=== PATIENT | female | born 1960 | race Caucasian/White ===

== ENCOUNTER 2018-10-04 16:30 | Inpatient (IN) | payer MEDICAID | END 2018-10-07 19:15 | disposition home or self-care (01) | LOC: TELE-EAST 10-06 21:20 → ER 16:30 → TELE 22:06 → TELE-EAST 22:49 | DX: I47.1 Supraventricular tachycardia (principal); N17.0 Acute kidney failure with tubular necrosis; R00.2 Palpitations; E87.6 Hypokalemia; K02.9 Dental caries, unspecified; I10 Essential (primary) hypertension; F10.10 Alcohol abuse, uncomplicated ==

== ENCOUNTER 2018-11-30 20:55 | Emergency (ER) | payer MEDICAID ==
[~2018-11-30] VITALS: Ht 167.6 cm; Wt 63.5 kg
[~2018-11-30 20:55] MED LIST: AML5T PO; ASPI81CH59 PO; ATOR10TA PO; CLIN300C8 PO; METO25TA36 PO; NIC21P TOP
[2018-11-30 22:16] LABS: Basophils # (auto) 0.1 uL; Basophils % (auto) 0.9 % (0.0-2.0); Eosinophils # (auto) 0.3 uL; Eosinophils % (auto) 2.6 % (0.0-7.0); Hematocrit 41.5 % (36.0-46.0); Hemoglobin 14.5 g/dL (12.2-16.2); Lymphocytes # (auto) 2.7 uL; Lymphocytes % (auto) 26.7 % (10.0-50.0); Mean Corpuscular Hemoglobin 33.1 pg (28.0-32.0); Mean Corpuscular Hgb Conc. 34.9 g/dL (32.0-36.0); Mean Corpuscular Volume 94.8 fL (80.0-100.0); Monocytes # (auto) 0.6 uL; Monocytes % (auto) 6.2 % (0.0-12.0); Neutrophils # (auto) 6.4 uL; Neutrophils % (auto) 63.6 % (37.0-80.0); Nucleated Red Blood Cells % 0.1 %; Platelet Count (auto) 224 10^3/uL (140-450); Red Blood Cells 4.38 10^6/uL (4.0-5.20); Red Cell Distribution Width 13.1 % (11.8-14.3)
[2018-11-30 22:34] LABS: Albumin 3.7 g/dL (3.4-5.0); Calcium 8.9 mg/dL (8.5-10.1); Potassium 3.8 mmol/L (3.5-5.1)
[2018-11-30 22:36] LABS: INR < 0.93 (0.9-1.15); Partial Thromboplastin Time 28.1 sec (23.64-32.05)
[2018-11-30 22:39] LABS: BUN/Creatinine Ratio 21.6; Bilirubin, Total 0.2 mg/dL (0.2-1.0); Total Protein 7.1 g/dL (6.4-8.2)
[2018-12-01 05:00] VITALS: BP 129/60
== END 2018-12-01 06:19 | disposition home or self-care (01) ==
LOC: EDBD 20:55 → ER 21:02
DX: I10 Essential (primary) hypertension (principal); I25.10 Atherosclerotic heart disease of native coronary artery without angina pectoris; R07.89 Other chest pain; Z88.6 Allergy status to analgesic agent; Z79.82 Long term (current) use of aspirin; Z79.899 Other long term (current) drug therapy
CPT/HCPCS: 36415; 80053; 83880; 84484; 85025; 85610; 85730; 93005; 94761

== ENCOUNTER 2019-10-20 18:35 | Inpatient (IN) | payer MEDICAID ==
[~2019-10-20] VITALS: Ht 165.1 cm; Wt 63.0 kg
[2019-10-20 19:37] LABS: Basophils # (auto) 0.1 10 ^3/uL (0-0.2); Basophils % (auto) 0.6 % (0.0-2.0); Eosinophils # (auto) 0.1 10 ^3/uL (0-0.8); Hematocrit 52.1 % (36.0-46.0); Hemoglobin 17.4 g/dL (12.2-16.2); Lymphocytes # (auto) 2.8 10 ^3/uL (0.4-5.4); Lymphocytes % (auto) 20.3 % (10.0-50.0); Mean Corpuscular Hemoglobin 31.2 pg (28.0-32.0); Mean Corpuscular Hgb Conc. 33.4 g/dL (32.0-36.0); Mean Corpuscular Volume 93.3 fL (80.0-100.0); Monocytes # (auto) 0.9 10 ^3/uL (0-1.3); Monocytes % (auto) 6.8 % (0.0-12.0); Neutrophils % (auto) 71.3 % (37.0-80.0); Platelet Count (auto) 333 10^3/uL (140-450); Red Blood Cells 5.58 10^6/uL (4.0-5.20); Red Cell Distribution Width 13.6 % (11.8-14.3)
[2019-10-20 19:51] LABS: INR 0.98 (0.9-1.15); Partial Thromboplastin Time 28.5 sec (23.64-32.05)
[2019-10-20 20:00] LABS: Alanine Aminotransferase 35 U/L (13-56); Albumin 4.3 g/dL (3.4-5.0); Anion Gap 6 (5-15); Aspartate Aminotransferase 24 U/L (15-37); Blood Urea Nitrogen 25 mg/dL (7-18); Calcium 9.1 mg/dL (8.5-10.1); Carbon Dioxide 22 mmol/L (21-32); Chloride 115 mmol/L (98-107); GFR African American 70 mL/min; GFR Non-African American 58 mL/min; Glucose 125 mg/dL (74-106); Magnesium 2.1 mg/dL (1.6-2.6); Potassium 3.2 mmol/L (3.5-5.1); Sodium 143 mmol/L (136-145)
[2019-10-20 20:05] LABS: Alkaline Phosphatase 100 U/L (45-117); Bilirubin, Total 0.3 mg/dL (0.2-1.0); Total Protein 8.8 g/dL (6.4-8.2)
[2019-10-21] MEDS ORDERED: SODIUM CHLORIDE 0.9% 1,000 ML IV SCH (00:34)
[2019-10-21] MEDS ORDERED: ZOLPIDEM TARTRATE 5 MG TAB PO PRN (00:45)
[2019-10-21] MEDS ORDERED: LORazepam 0.5 MG TAB PO PRN (00:45)
[2019-10-21] MEDS ORDERED: MORPHINE SULF INJ 2 MG/ML SYRINGE 1ML IV PRN (00:45)
[2019-10-21] MEDS ORDERED: ONDANSETRON HCL 4 MG/2 ML VIAL IV PRN (00:45)
[2019-10-21] MEDS ORDERED: ACETAMINOPHEN 325 MG TAB PO PRN (00:45)
[2019-10-21] MEDS ORDERED: NITROGLYCERIN 0.4 MG SL TAB SL PRN (00:45)
[2019-10-21] MEDS ORDERED: DEXTROSE (50%) 50ML SYRG IV PRN (00:45)
[2019-10-21] MEDS ORDERED: METOPROLOL TARTRATE 1MG/1ML-5ML VIAL IV PRN (00:45)
[2019-10-21 01:56] VITALS: BP 156/94
--- NOTE | 2019-10-21 01:56 | NUR ---
Telemetry admit from ER SEGUNDO AGOSTO admitted to Telemetry unit. Patient oriented to PAUL MORALES, primary RN, unit, room, bed, and unit policies regarding patient care and visiting hours. Patient now on continuous telemetry monitoring, tele box 42 and telemetry reading on arrival to unit is sinus rhythm. Patient weighed by bedscale and encouraged to call if they need something. All questions and concerns addressed, patient verbalized understanding.
[2019-10-21 05:00] VITALS: BP 147/75
[2019-10-21 05:34] LABS: Basophils # (auto) 0 10 ^3/uL (0-0.2); Basophils % (auto) 0.3 % (0.0-2.0); Eosinophils # (auto) 0 10 ^3/uL (0-0.8); Eosinophils % (auto) 0.4 % (0.0-7.0); Hematocrit 47.2 % (36.0-46.0); Hemoglobin 16.3 g/dL (12.2-16.2); Lymphocytes # (auto) 1.6 10 ^3/uL (0.4-5.4); Lymphocytes % (auto) 12.9 % (10.0-50.0); Mean Corpuscular Hemoglobin 31.9 pg (28.0-32.0); Mean Corpuscular Hgb Conc. 34.5 g/dL (32.0-36.0); Mean Corpuscular Volume 92.3 fL (80.0-100.0); Monocytes # (auto) 0.7 10 ^3/uL (0-1.3); Monocytes % (auto) 5.9 % (0.0-12.0); Neutrophils % (auto) 80.5 % (37.0-80.0); Platelet Count (auto) 311 10^3/uL (140-450); Red Blood Cells 5.12 10^6/uL (4.0-5.20); Red Cell Distribution Width 13.5 % (11.8-14.3); White Blood Cell 12.5 10^3/uL (4.4-10.8)
[2019-10-21] MEDS: InsuLIN REG 1unit/0.01ml Soln (100units/ml) SC SCH ×2 (05:50→11:24)
[2019-10-21] MEDS: ACCU-CHEK COMFORT CURVE STRIP VI SCH ×2 (05:50→11:24)
[2019-10-21 06:11] LABS: Calcium 9.3 mg/dL (8.5-10.1); Magnesium 2.2 mg/dL (1.6-2.6); Potassium 3.4 mmol/L (3.5-5.1)
[2019-10-21 06:16] LABS: BUN/Creatinine Ratio 26.7
--- NOTE | 2019-10-21 07:45 | NUR ---
Opening Shift Note Assumed care of patient, awake, alert, and oriented. No S/S of distress/SOB or pain. Bed in lowest/locked position, bed rails upx2, call light within reach. Instructed on POC and to call for assist PRN. Will continue to monitor for changes Q1hr and PRN.
[2019-10-21 09:00] VITALS: BP_SYST 123; BP_SYST 138; BP_DIAS 76; BP_DIAS 82
[2019-10-21] MEDS ORDERED: LISINOPRIL 5 MG TAB PO SCH (10:00)
[2019-10-21] MEDS ORDERED: CARVEDILOL 3.125 MG TAB PO SCH (10:00)
[2019-10-21] MEDS ORDERED: PANTOPRAZOLE 40 MG/10 ML VIAL INJ IV SCH (10:00)
[2019-10-21] MEDS ORDERED: cefTRIAXone 1GM/50ML D5W 50 ML IV SCH (10:00)
[2019-10-21] MEDS ORDERED: CLOPIDOGREL BISULFATE 75 MG TAB PO SCH (10:00)
[2019-10-21] MEDS ORDERED: DOCUSATE SOD 100 MG CAP PO SCH (10:00)
[2019-10-21] MEDS ORDERED: ASPirin 81 mg TAB PO SCH (10:00)
[2019-10-21] MEDS ORDERED: SODIUM CHLORIDE 0.9% 1,000 ML IV ONE (10:45)
[2019-10-21] MEDS ORDERED: POTASSIUM EFFERVESENT TAB 25 MEQ PO ONE (10:45)
[2019-10-21] MEDS ORDERED: RANO500T PO (11:32)
[2019-10-21] MEDS ORDERED: CLOP75TA28 PO (11:32)
[2019-10-21 13:00] VITALS: BP 134/81
--- NOTE | 2019-10-21 15:50 | NUR ---
Discharge instructions given as ordered. Encourage to follow up with PMD as instructed. All questions and concerns addressed. Patient verbalized understanding. Home medications held in Pharmacy returned to patient, and needed vaccines given. IV removed with catheter intact, pressure dressing applied. Telemetry unit returned to ICU. Patient taken to vehicle via wheelchair with all personal belongings, accompanied by staff. No distress noted at time of departure.
[2019-10-21] MEDS ORDERED: RANOLAZINE ER 500 MG TAB PO SCH (22:00)
[2019-10-21] MEDS ORDERED: ATORVASTATIN 20 MG TAB PO SCH (22:00)
--- NOTE | 2019-10-23 10:30 | NUR ---
BIOLOGY INTERN WEEKEND Did not received a page or call regarding social service consult for home health safety evaluation. Placed call to patient at 10:27am this morning regarding orders for home health. Patient refused service stating she has a doctor appointment with Dr. Kemp on 10/31/2019. Patient verbalize understanding.
--- NOTE | 2019-10-23 10:38 | NUR ---
SHRIMP PEELER WEEKEND Did not received a page or call regarding social service consult for advance directive
== END 2019-10-21 15:22 | disposition home health service (06) | DRG 198 ==
LOC: ER 18:35 → EDBD 18:35 → TELE 18:36 → TELE-CENTR 10-21 01:57
PROVIDERS: ADMIT Hospitalist; ATTEND Hospitalist
DX: R07.9 Chest pain, unspecified (principal); I25.10 Atherosclerotic heart disease of native coronary artery without angina pectoris; D72.829 Elevated white blood cell count, unspecified; E86.0 Dehydration; N28.9 Disorder of kidney and ureter, unspecified; I10 Essential (primary) hypertension; R73.9 Hyperglycemia, unspecified; E87.6 Hypokalemia; Z82.0 Family history of epilepsy and other diseases of the nervous system; Z87.891 Personal history of nicotine dependence; Z88.6 Allergy status to analgesic agent; Z82.49 Family history of ischemic heart disease and other diseases of the circulatory system; Z83.3 Family history of diabetes mellitus; Z79.899 Other long term (current) drug therapy
CPT/HCPCS: 36415; 71045; 80048; 80053; 80061; 82962; 83735; 83880; 84443; 84484; 85025; 85610; 85730; 93005; C9113; G0378; J0696

== ENCOUNTER 2019-12-27 09:54 | Day surgery (SDC) | payer MEDICAID ==
[2019-12-21 10:19] LABS: Basophils # (auto) 0.1 10 ^3/uL (0-0.2); Basophils % (auto) 0.5 % (0.0-2.0); Eosinophils # (auto) 0.2 10 ^3/uL (0-0.8); Hematocrit 40.7 % (36.0-46.0); Hemoglobin 13.9 g/dL (12.2-16.2); Lymphocytes # (auto) 1.5 10 ^3/uL (0.4-5.4); Lymphocytes % (auto) 15.5 % (10.0-50.0); Mean Corpuscular Hemoglobin 31.6 pg (28.0-32.0); Mean Corpuscular Hgb Conc. 34.2 g/dL (32.0-36.0); Mean Corpuscular Volume 92.2 fL (80.0-100.0); Monocytes # (auto) 0.6 10 ^3/uL (0-1.3); Monocytes % (auto) 6.3 % (0.0-12.0); Neutrophils # (auto) 7.5 10 ^3/uL (1.6-8.6); Neutrophils % (auto) 75.7 % (37.0-80.0); Platelet Count (auto) 274 10^3/uL (140-450); Red Blood Cells 4.42 10^6/uL (4.0-5.20); Red Cell Distribution Width 13.3 % (11.8-14.3); White Blood Cell 9.9 10^3/uL (4.4-10.8)
[2019-12-21 10:35] LABS: INR 0.98 (0.9-1.15)
[2019-12-21 11:12] LABS: Albumin 3.4 g/dL (3.4-5.0); BUN/Creatinine Ratio 15.3; Bilirubin, Total 0.4 mg/dL (0.2-1.0); Calcium 8.5 mg/dL (8.5-10.1); Potassium 4.4 mmol/L (3.5-5.1); Total Protein 7.1 g/dL (6.4-8.2)
[~2019-12-27] VITALS: Ht 167.6 cm; Wt 63.5 kg
[~2019-12-27 09:54] MED LIST changes: +ACET-1156 PO; +ASPI-231 PO; -ASPI81CH59 PO; +BACL10TA PO; -CLIN300C8 PO; +CLOP75TA28 PO; +DICL50TA2 PO; +FLUT0.05 NAS; -NIC21P TOP; +POM; +RANO500T PO
[2019-12-27] MEDS ORDERED: LIDOCAINE 2%HCL (LOCAL ANESTH.) INJ 20ML MDV ONE (11:36)
[2019-12-27] MEDS ORDERED: IODIXANOL 320MG/ML 100ML BTL IV ONE (11:36)
[2019-12-27] MEDS ORDERED: ANGIOMAX 250 MG VIAL IV ONE (11:37)
[2019-12-27] MEDS ORDERED: fentaNYL CITRATE 100 MCG/2 ML VL ONE (11:37)
[2019-12-27] MEDS ORDERED: MIDAZOLAM HCL 1MG/1ML-2 ML VIAL ONE (11:37)
[2019-12-27] MEDS ORDERED: SODIUM CHL 0.9% 0 ML ONE (11:37)
[2019-12-27] MEDS ORDERED: HEPARIN SODIUM (PORCINE) 5000 UNITS/ML 1ML VIAL ONE (11:38)
[2019-12-27] MEDS ORDERED: VERAPAMIL 2.5MG/ML INJ 2ML VIAL IV ONE (11:38)
[2019-12-27] MEDS ORDERED: ONDANSETRON HCL 4 MG/2 ML VIAL IV PRN (12:45)
[2019-12-27] MEDS ORDERED: HYDROcodone-ACET 5/325MG TAB PO PRN (12:45)
[2019-12-27] MEDS ORDERED: ACETAMINOPHEN 500 MG TAB PO PRN (12:45)
== END 2019-12-27 14:27 | disposition home or self-care (01) ==
LOC: CATH 09:54
PROVIDERS: ATTEND Internal Medicine
DX: R07.89 Other chest pain (principal); I10 Essential (primary) hypertension; E78.5 Hyperlipidemia, unspecified; Z87.891 Personal history of nicotine dependence; Z79.82 Long term (current) use of aspirin; Z79.899 Other long term (current) drug therapy; Z88.6 Allergy status to analgesic agent; Z98.890 Other specified postprocedural states; Z20.828 Contact with and (suspected) exposure to other viral communicable diseases
CPT/HCPCS: 36415; 80053; 85025; 85610; 85730; 93458; C1760; C1769; C1894; J1644; J2250; J3010; Q9967; U0003; 99152

== ENCOUNTER 2021-01-25 10:01 | Emergency (ER) | payer MEDICAID ==
[~2021-01-25] VITALS: Ht 165.1 cm; Wt 60.3 kg
[~2021-01-25 10:01] MED LIST changes: -ASPI-231 PO; +ASPI1TAB20 PO
[2021-01-25 10:57] LABS: Basophils # (auto) 0.1 10 ^3/uL (0-0.2); Basophils % (auto) 0.5 % (0.0-2.0); Eosinophils # (auto) 0.1 10 ^3/uL (0-0.8); Eosinophils % (auto) 0.8 % (0.0-7.0); Hematocrit 45.7 % (36.0-46.0); Hemoglobin 15.3 g/dL (12.2-16.2); Lymphocytes # (auto) 2.2 10 ^3/uL (0.4-5.4); Lymphocytes % (auto) 19.3 % (10.0-50.0); Mean Corpuscular Hgb Conc. 33.5 g/dL (32.0-36.0); Mean Corpuscular Volume 92.6 fL (80.0-100.0); Monocytes # (auto) 0.6 10 ^3/uL (0-1.3); Monocytes % (auto) 5.7 % (0.0-12.0); Neutrophils # (auto) 8.3 10 ^3/uL (1.6-8.6); Neutrophils % (auto) 73.7 % (37.0-80.0); Nucleated Red Blood Cells % 0.1 %; Red Blood Cells 4.94 10^6/uL (4.0-5.20); Red Cell Distribution Width 13.6 % (11.8-14.3); White Blood Cell 11.3 10^3/uL (4.4-10.8)
[2021-01-25 11:12] LABS: Albumin 4.1 g/dL (3.4-5.0); Anion Gap 7 (5-15); Blood Urea Nitrogen 16 mg/dL (7-18); Calcium 9.4 mg/dL (8.5-10.1); Carbon Dioxide 21 mmol/L (21-32); Chloride 113 mmol/L (98-107); Glucose 94 mg/dL (74-106); Magnesium 2.5 mg/dL (1.6-2.6); Potassium 3.6 mmol/L (3.5-5.1); Sodium 141 mmol/L (136-145)
[2021-01-25 11:18] LABS: Alanine Aminotransferase 28 U/L (13-56); Alkaline Phosphatase 79 U/L (45-117); Aspartate Aminotransferase 14 U/L (15-37); BUN/Creatinine Ratio 16.5; Bilirubin, Total 0.5 mg/dL (0.2-1.0); GFR African American 75 mL/min; GFR Non-African American 62 mL/min; Total Protein 7.6 g/dL (6.4-8.2)
[2021-01-25 12:33] LABS: Urine Bacteria NONE SEEN /hpf (None Seen); Urine Blood Negative /uL (Negative); Urine Specific Gravity 1.002 (1.001-1.035); Urine WBC 1 /hpf (0 - 5)
[2021-01-25 17:05] VITALS: BP 168/77
== END 2021-01-25 17:15 | disposition home or self-care (01) ==
LOC: ER 10:01
DX: R07.2 Precordial pain (principal); R53.83 Other fatigue; I10 Essential (primary) hypertension; I25.10 Atherosclerotic heart disease of native coronary artery without angina pectoris; Z87.891 Personal history of nicotine dependence; Z79.82 Long term (current) use of aspirin; Z79.899 Other long term (current) drug therapy; Z88.8 Allergy status to other drugs, medicaments and biological substances; Z20.822 Contact with and (suspected) exposure to COVID-19
CPT/HCPCS: 36415; 71046; 80053; 81001; 83735; 84439; 84443; 84484; 85025; 87426; 93005

== ENCOUNTER → 2021-04-08 | Outpatient (CLI) | payer MEDICAID | END | disposition home or self-care (01) | LOC: XYW 10:20 | PROVIDERS: ATTEND Internal Medicine | DX: I08.3 Combined rheumatic disorders of mitral, aortic and tricuspid valves (principal); I47.1 Supraventricular tachycardia | CPT/HCPCS: 93306 ==

== ENCOUNTER 2021-04-22 09:55 | Emergency (ER) | payer MEDICAID ==
[~2021-04-22] VITALS: Ht 167.6 cm; Wt 61.2 kg
[2021-04-22 09:55] VITALS: BP 154/83
[2021-04-22 10:50] LABS: Basophils # (auto) 0.1 10 ^3/uL (0-0.2); Basophils % (auto) 0.7 % (0.0-2.0); Eosinophils # (auto) 0.1 10 ^3/uL (0-0.8); Hematocrit 47.5 % (36.0-46.0); Hemoglobin 16.3 g/dL (12.2-16.2); Lymphocytes # (auto) 2.2 10 ^3/uL (0.4-5.4); Lymphocytes % (auto) 14.9 % (10.0-50.0); Mean Corpuscular Hgb Conc. 34.3 g/dL (32.0-36.0); Mean Corpuscular Volume 93.2 fL (80.0-100.0); Monocytes # (auto) 0.7 10 ^3/uL (0-1.3); Neutrophils # (auto) 11.3 10 ^3/uL (1.6-8.6); Neutrophils % (auto) 78.4 % (37.0-80.0); Nucleated Red Blood Cells % 0.1 %; Red Cell Distribution Width 13.6 % (11.8-14.3); White Blood Cell 14.4 10^3/uL (4.4-10.8)
[2021-04-22 11:07] LABS: Albumin 4.2 g/dL (3.4-5.0); Calcium 9.2 mg/dL (8.5-10.1); Potassium 3.9 mmol/L (3.5-5.1)
[2021-04-22 11:14] LABS: BUN/Creatinine Ratio 17.1; Bilirubin, Total 0.4 mg/dL (0.2-1.0); Total Protein 7.9 g/dL (6.4-8.2)
== END 2021-04-22 19:50 | disposition left against medical advice (07) ==
LOC: ER 09:55 → EDBD 09:55 → ER 19:50
DX: R07.89 Other chest pain (principal); I25.2 Old myocardial infarction; F12.10 Cannabis abuse, uncomplicated; Z86.73 Personal history of transient ischemic attack (TIA), and cerebral infarction without residual deficits; Z98.61 Coronary angioplasty status; Z87.891 Personal history of nicotine dependence; Z98.890 Other specified postprocedural states; Z88.6 Allergy status to analgesic agent
CPT/HCPCS: 36415; 71045; 80053; 83880; 84484; 85025; 93005

== ENCOUNTER → 2021-04-23 | Outpatient (CLI) | payer MEDICAID ==
[~2021-04-23] VITALS: Ht 167.6 cm; Wt 61.2 kg
[~2021-04-23] MED LIST changes: +ADENOSINE 51 MG in GIVE UN-DILUTED 0 ML IV STA
== END | disposition home or self-care (01) ==
LOC: XY 09:48
PROVIDERS: ATTEND Internal Medicine
DX: Z01.810 Encounter for preprocedural cardiovascular examination (principal); R00.2 Palpitations; I25.10 Atherosclerotic heart disease of native coronary artery without angina pectoris; I47.1 Supraventricular tachycardia; I10 Essential (primary) hypertension; E78.5 Hyperlipidemia, unspecified
CPT/HCPCS: 78452; 93017; A9500; J0153

== ENCOUNTER → 2021-04-28 | Outpatient (CLI) | payer MEDICAID ==
[~2021-04-28] MED LIST changes: -ADENOSINE 51 MG in GIVE UN-DILUTED 0 ML IV STA
[2021-04-28 15:23] LABS: Free T4 (Free Thyroxine) 1.16 ng/dL (0.89-1.76); T3 Total 0.69 ng/mL (0.60-1.81)
== END | disposition home or self-care (01) ==
LOC: LAB 14:02
PROVIDERS: ATTEND Internal Medicine
DX: R00.2 Palpitations (principal)
CPT/HCPCS: 36415; 84439; 84443; 84480

== ENCOUNTER 2022-05-19 10:06 | Inpatient (IN) | payer MEDICAID ==
[~2022-05-19] VITALS: Ht 165.1 cm; Wt 55.4 kg
[2022-05-19 11:16] LABS: Basophils # (auto) 0 10 ^3/uL (0-0.2); Basophils % (auto) 0.4 % (0.0-2.0); Eosinophils # (auto) 0 10 ^3/uL (0-0.8); Eosinophils % (auto) 0.4 % (0.0-7.0); Hematocrit 48.4 % (36.0-46.0); Hemoglobin 16.4 g/dL (12.2-16.2); Lymphocytes # (auto) 1.5 10 ^3/uL (0.4-5.4); Lymphocytes % (auto) 14.2 % (10.0-50.0); Mean Corpuscular Volume 94.2 fL (80.0-100.0); Monocytes # (auto) 0.6 10 ^3/uL (0-1.3); Monocytes % (auto) 5.8 % (0.0-12.0); Neutrophils # (auto) 8.6 10 ^3/uL (1.6-8.6); Neutrophils % (auto) 79.2 % (37.0-80.0); Nucleated Red Blood Cells % 0.1 %; Red Blood Cells 5.14 10^6/uL (4.0-5.20); Red Cell Distribution Width 13.5 % (11.8-14.3); White Blood Cell 10.8 10^3/uL (4.4-10.8)
[2022-05-19 11:23] LABS: INR 1.01 (0.9-1.15); Partial Thromboplastin Time 29.1 sec (24.6-33.4)
[2022-05-19 11:26] LABS: Alanine Aminotransferase 28 U/L (13-56); Anion Gap 11 (5-15); Aspartate Aminotransferase 21 U/L (15-37); Blood Urea Nitrogen 20 mg/dL (7-18); Calcium 9.2 mg/dL (8.5-10.1); Carbon Dioxide 23 mmol/L (21-32); Chloride 108 mmol/L (98-107); GFR African American 64 mL/min; GFR Non-African American 53 mL/min; Glucose 109 mg/dL (74-106); Magnesium 2.1 mg/dL (1.6-2.6); Potassium 3.7 mmol/L (3.5-5.1); Sodium 142 mmol/L (136-145)
[2022-05-19 11:27] LABS: Alkaline Phosphatase 75 U/L (45-117); Bilirubin, Total 0.6 mg/dL (0.2-1.0); Total Protein 7.6 g/dL (6.4-8.2)
[2022-05-19] MEDS ORDERED: ASPirin 325 MG TAB PO ONE (11:45)
[2022-05-19] MEDS ORDERED: NITROGLYCERIN 0.4 MG SL TAB SL ONE (12:00)
[2022-05-19] MEDS ORDERED: MORPHINE SULFATE INJ 2 MG/ml SYRG IV PRN (14:00)
[2022-05-19] MEDS ORDERED: NITROGLYCERIN 0.4 MG SL TAB SL PRN (14:00)
[2022-05-19] MEDS ORDERED: PANTOPRAZOLE 40 MG/10 ML VIAL INJ IV ONE (14:15)
[2022-05-19 14:56] LABS: Cholesterol 142 mg/dL (< 200); HDL Cholesterol 68 mg/dL (40-59); LDL Cholesterol 69 mg/dL (< 100); Triglycerides 82 mg/dL (< 150)
[2022-05-19] MEDS: SODIUM CHLORIDE 0.9% 1,000 ML IV SCH (16:58)
[2022-05-19] MEDS: RANOLAZINE ER 500 MG TAB PO SCH (23:30)
[2022-05-19] MEDS: ATORVASTATIN 20 MG TAB PO SCH (23:30)
[2022-05-20] MEDS: ACETAMINOPHEN 325 MG TAB PO PRN ×3 (02:40→22:40)
[2022-05-20 04:59] LABS: Basophils # (auto) 0 10 ^3/uL (0-0.2); Basophils % (auto) 0.4 % (0.0-2.0); Eosinophils # (auto) 0.1 10 ^3/uL (0-0.8); Eosinophils % (auto) 0.8 % (0.0-7.0); Hematocrit 44.9 % (36.0-46.0); Hemoglobin 14.9 g/dL (12.2-16.2); Lymphocytes # (auto) 1.7 10 ^3/uL (0.4-5.4); Lymphocytes % (auto) 18.8 % (10.0-50.0); Mean Corpuscular Hemoglobin 31.5 pg (28.0-32.0); Mean Corpuscular Hgb Conc. 33.1 g/dL (32.0-36.0); Mean Corpuscular Volume 95.1 fL (80.0-100.0); Monocytes # (auto) 0.8 10 ^3/uL (0-1.3); Monocytes % (auto) 8.2 % (0.0-12.0); Neutrophils # (auto) 6.6 10 ^3/uL (1.6-8.6); Neutrophils % (auto) 71.8 % (37.0-80.0); Red Blood Cells 4.72 10^6/uL (4.0-5.20); Red Cell Distribution Width 13.4 % (11.8-14.3); White Blood Cell 9.3 10^3/uL (4.4-10.8)
[2022-05-20 05:15] LABS: Potassium 3.5 mmol/L (3.5-5.1)
[2022-05-20 05:23] LABS: Albumin 3.8 g/dL (3.4-5.0); BUN/Creatinine Ratio 20.9; Bilirubin, Total 0.5 mg/dL (0.2-1.0); Calcium 8.7 mg/dL (8.5-10.1); Total Protein 6.8 g/dL (6.4-8.2)
[2022-05-20] MEDS ORDERED: PATIENTS OWN MEDICATION (Atorvastatin Calcium (Lipitor) 1 TAB) PO SCH (10:00)
[2022-05-20] MEDS ORDERED: POTASSIUM EFFERVESENT TAB 25 MEQ PO ONE (10:00)
[2022-05-20] MEDS ORDERED: METOPROLOL SUCCINATE XL 50 MG TAB PO SCH (10:00)
[2022-05-20] MEDS ORDERED: PATIENTS OWN MEDICATION (Metoprolol Succinate (Toprol Xl) 1 TAB) PO SCH (10:00)
[2022-05-20] MEDS ORDERED: ASPirin 81 mg TAB PO SCH (10:00)
[2022-05-20] MEDS: ASPirin-EC 81 mg tab PO SCH (10:00)
[2022-05-20] MEDS ORDERED: PATIENTS OWN MEDICATION (Clopidogrel Bisulfate (Plavix) 75 MG) PO SCH (10:00)
[2022-05-20] MEDS: SODIUM CHLORIDE 0.9% 1,000 ML IV SCH (12:18)
[2022-05-20] MEDS: ENOXAPARIN SOD 40 MG/0.4 ML SYRINGE SC SCH (12:24)
[2022-05-20] MEDS: MAGNESIUM OXIDE 400 MG TAB PO SCH (12:25)
[2022-05-20] MEDS: amLODIPine BESYLATE 5 MG TAB PO SCH (12:26)
[2022-05-20] MEDS: CLOPIDOGREL BISULFATE 75 MG TAB PO SCH (12:26)
[2022-05-20] MEDS: PANTOPRAZOLE 40 MG/10 ML VIAL INJ IV SCH (12:27)
[2022-05-20] MEDS: RANOLAZINE ER 500 MG TAB PO SCH ×2 (17:07→22:00)
[2022-05-20 19:00] VITALS: BP 137/75
[2022-05-20 22:00] VITALS: BP 137/75
[2022-05-20] MEDS: ATORVASTATIN 20 MG TAB PO SCH (23:04)
[2022-05-21 09:16] VITALS: BP 150/60
[2022-05-21] MEDS ORDERED: METOPROLOL SUCCINATE XL 50 MG TAB PO SCH (10:00)
[2022-05-21 10:16] LABS: Urine Bacteria NONE SEEN /hpf (None Seen); Urine Blood Negative /uL (Negative); Urine Specific Gravity 1.014 (1.001-1.035); Urine WBC 2 /hpf (0 - 5)
[2022-05-21 10:33] LABS: Alcohol, Urine < 3.0 mg/dL (0-10); Barbiturate Scree,Urine NEGATIVE (NEGATIVE); Benzodiazephine Screen, Urine NEGATIVE (NEGATIVE); Cannabinoid Screen, Urine POSITIVE (NEGATIVE); Cocaine Screen, Urine NEGATIVE (NEGATIVE); Opiate Scree,Urine NEGATIVE (NEGATIVE); Phencyclidine Screen, Urine NEGATIVE (NEGATIVE)
[2022-05-21 10:44] LABS: Amphetamine Screen, Urine NEGATIVE (NEGATIVE)
[2022-05-21] MEDS ORDERED: METO25TA36 PO (10:53)
[2022-05-21] MEDS: amLODIPine BESYLATE 5 MG TAB PO SCH (11:04)
[2022-05-21] MEDS: ASPirin-EC 81 mg tab PO SCH (11:04)
[2022-05-21] MEDS: CLOPIDOGREL BISULFATE 75 MG TAB PO SCH (11:05)
[2022-05-21] MEDS: ACETAMINOPHEN 325 MG TAB PO PRN (11:05)
[2022-05-21] MEDS: RANOLAZINE ER 500 MG TAB PO SCH (11:07)
[2022-05-21] MEDS: PANTOPRAZOLE 40 MG/10 ML VIAL INJ IV SCH (11:07)
[2022-05-21] MEDS: MAGNESIUM OXIDE 400 MG TAB PO SCH (11:07)
[2022-05-21] MEDS: ENOXAPARIN SOD 40 MG/0.4 ML SYRINGE SC SCH (11:08)
[2022-05-21 12:57] VITALS: BP 141/70
[2022-05-21 16:03] VITALS: BP 150/60
== END 2022-05-21 18:00 | disposition home or self-care (01) | DRG 201 ==
LOC: ER 10:06 → EDBD 10:06 → TELE 13:58 → TELE-E-ADS 05-20 17:25 → TELE-EAST 05-20 19:23
PROVIDERS: ADMIT Nurse Practitioner Family; ATTEND Nurse Practitioner Acute Care
DX: I47.1 Supraventricular tachycardia (principal); J96.01 Acute respiratory failure with hypoxia; I21.A1 Myocardial infarction type 2; I10 Essential (primary) hypertension; Z20.822 Contact with and (suspected) exposure to COVID-19; I25.10 Atherosclerotic heart disease of native coronary artery without angina pectoris; N17.9 Acute kidney failure, unspecified; Z79.02 Long term (current) use of antithrombotics/antiplatelets; Z88.6 Allergy status to analgesic agent; Z88.8 Allergy status to other drugs, medicaments and biological substances; Z87.891 Personal history of nicotine dependence; Z83.3 Family history of diabetes mellitus; Z82.49 Family history of ischemic heart disease and other diseases of the circulatory system; Z82.0 Family history of epilepsy and other diseases of the nervous system; Z79.82 Long term (current) use of aspirin
CPT/HCPCS: 36415; 71045; 80053; 80061; 80307; 81001; 83735; 83880; 84443; 84484; 85025; 85379; 85610; 85730; 87426; 93005; 93306; C9113; G0378

== ENCOUNTER 2022-05-22 10:34 | Inpatient (IN) | payer MEDICAID ==
[~2022-05-22] VITALS: Ht 165.1 cm; Wt 55.7 kg
[2022-05-22 11:29] LABS: Basophils # (auto) 0.1 10 ^3/uL (0-0.2); Basophils % (auto) 0.7 % (0.0-2.0); Eosinophils # (auto) 0.1 10 ^3/uL (0-0.8); Eosinophils % (auto) 0.6 % (0.0-7.0); Hematocrit 46.9 % (36.0-46.0); Lymphocytes % (auto) 18.5 % (10.0-50.0); Mean Corpuscular Hemoglobin 32.1 pg (28.0-32.0); Mean Corpuscular Volume 94.3 fL (80.0-100.0); Monocytes # (auto) 0.7 10 ^3/uL (0-1.3); Monocytes % (auto) 6.1 % (0.0-12.0); Neutrophils % (auto) 74.1 % (37.0-80.0); Nucleated Red Blood Cells % 0.1 %; Red Blood Cells 4.97 10^6/uL (4.0-5.20); Red Cell Distribution Width 13.3 % (11.8-14.3); White Blood Cell 10.8 10^3/uL (4.4-10.8)
[2022-05-22 11:29] LABS: Urine Bacteria NONE SEEN /hpf (None Seen); Urine Blood TRACE /uL (Negative); Urine Specific Gravity 1.002 (1.001-1.035); Urine WBC 1 /hpf (0 - 5)
[2022-05-22 11:40] LABS: Albumin 3.8 g/dL (3.4-5.0); Calcium 8.8 mg/dL (8.5-10.1); Potassium 3.6 mmol/L (3.5-5.1)
[2022-05-22 11:44] LABS: BUN/Creatinine Ratio 19.8; Bilirubin, Total 0.5 mg/dL (0.2-1.0); Total Protein 6.6 g/dL (6.4-8.2)
[2022-05-22] MEDS ORDERED: NITROGLYCERIN 0.4 MG SL TAB SL PRN (17:45)
[2022-05-22] MEDS ORDERED: MORPHINE SULFATE INJ 2 MG/ml SYRG IV PRN (17:45)
[2022-05-22] MEDS: SODIUM CHLORIDE 0.9% 1,000 ML IV SCH (17:56)
[2022-05-22] MEDS ORDERED: PANTOPRAZOLE 40 MG TAB PO ONE (18:00)
[2022-05-22] MEDS: ACETAMINOPHEN 325 MG TAB PO PRN (20:41)
[2022-05-22] MEDS: RANOLAZINE ER 500 MG TAB PO SCH (21:49)
[2022-05-22] MEDS ORDERED: ATORVASTATIN 20 MG TAB PO SCH (22:00)
[2022-05-22 23:22] VITALS: BP 154/64
[2022-05-23 05:00] VITALS: BP 129/65
[2022-05-23 06:14] LABS: Basophils # (auto) 0.1 10 ^3/uL (0-0.2); Basophils % (auto) 0.7 % (0.0-2.0); Eosinophils # (auto) 0.1 10 ^3/uL (0-0.8); Eosinophils % (auto) 0.9 % (0.0-7.0); Hematocrit 43.7 % (36.0-46.0); Hemoglobin 14.6 g/dL (12.2-16.2); Lymphocytes # (auto) 2.4 10 ^3/uL (0.4-5.4); Mean Corpuscular Hemoglobin 32.1 pg (28.0-32.0); Mean Corpuscular Hgb Conc. 33.5 g/dL (32.0-36.0); Mean Corpuscular Volume 95.8 fL (80.0-100.0); Monocytes # (auto) 0.5 10 ^3/uL (0-1.3); Monocytes % (auto) 5.3 % (0.0-12.0); Neutrophils # (auto) 6.6 10 ^3/uL (1.6-8.6); Neutrophils % (auto) 68.1 % (37.0-80.0); Nucleated Red Blood Cells % 0.2 %; Red Blood Cells 4.56 10^6/uL (4.0-5.20); Red Cell Distribution Width 13.5 % (11.8-14.3); White Blood Cell 9.7 10^3/uL (4.4-10.8)
[2022-05-23 06:30] LABS: Albumin 3.9 g/dL (3.4-5.0); Calcium 9.4 mg/dL (8.5-10.1); Potassium 4.9 mmol/L (3.5-5.1)
[2022-05-23 06:33] LABS: BUN/Creatinine Ratio 23.4; Bilirubin, Total 0.4 mg/dL (0.2-1.0); Total Protein 6.5 g/dL (6.4-8.2)
[2022-05-23] MEDS: ACETAMINOPHEN 325 MG TAB PO PRN (07:35)
[2022-05-23 09:00] VITALS: BP 130/67
[2022-05-23] MEDS ORDERED: ENOXAPARIN SOD 40 MG/0.4 ML SYRINGE SC SCH (10:00)
[2022-05-23] MEDS ORDERED: PANTOPRAZOLE 40 MG TAB PO SCH (10:00)
[2022-05-23] MEDS ORDERED: METOPROLOL SUCCINATE XL 50 MG TAB PO SCH (10:00)
[2022-05-23] MEDS ORDERED: ASPirin-EC 81 mg tab PO SCH (10:00)
[2022-05-23] MEDS ORDERED: CLOPIDOGREL BISULFATE 75 MG TAB PO SCH (10:00)
[2022-05-23] MEDS: RANOLAZINE ER 500 MG TAB PO SCH (10:20)
[2022-05-23] MEDS: SODIUM CHLORIDE 0.9% 1,000 ML IV SCH (10:45)
[2022-05-23 12:30] VITALS: BP 131/63
[2022-05-23 17:00] VITALS: BP 149/81
== END 2022-05-23 16:00 | disposition home or self-care (01) | DRG 204 ==
LOC: EDBD 10:34 → EDSEX 10:34 → ER 10:34 → TELE 17:31 → TELE-WESTW 21:57
PROVIDERS: ADMIT Nurse Practitioner Family; ATTEND Nurse Practitioner Family
DX: R55 Syncope and collapse (principal); I47.1 Supraventricular tachycardia; I48.20 Chronic atrial fibrillation, unspecified; I10 Essential (primary) hypertension; I25.10 Atherosclerotic heart disease of native coronary artery without angina pectoris; Z20.822 Contact with and (suspected) exposure to COVID-19; Z87.891 Personal history of nicotine dependence; Z88.6 Allergy status to analgesic agent; Z82.0 Family history of epilepsy and other diseases of the nervous system; Z82.49 Family history of ischemic heart disease and other diseases of the circulatory system
CPT/HCPCS: 36415; 71045; 80053; 81001; 84484; 85025; 87081; 87426; 93005; 93886; G0378

== ENCOUNTER 2024-10-22 10:57 | Inpatient (IN) | payer MEDICAID ==
[~2024-10-22] VITALS: Ht 165.1 cm; Wt 56.5 kg
[~2024-10-22 10:57] MED LIST changes: -ACET-1156 PO; +ACET-1881 PO; -BACL10TA PO; -POM
--- NOTE | 2024-10-22 11:06 | ECG ---
[facility] Test Date: 2024-10-22 Test Time: 11:01:16 Pat Name: SEGUNDO PANDEY Department: ED Room: 0289T Gender: F Caddy: MR BELLO: 1960 Requested By: RAMÍREZ WOODS Order Number: [id number] Reading MD: Amish Kemp Measurements Intervals [place] Rate: 58 P: -20 [place]: 175 QRS: -48 QRSD: 104 T: 76 QT: 440 QTc: 433 Interpretive Statements Sinus rhythm LAD, consider left anterior fascicular block RSR' in V1 or V2, right VCD or RVH Electronically Signed On 10-26-2024 18:53:08 PDT by Amish Kemp Please click the below link to view image of tracing.
--- NOTE | 2024-10-22 11:13 | ED.PDOC ---
HPI Comments 64 y.o female with PMHX of HTN, HLD, and AFIB, presents to the ED via EMS for a chief complaint of left sided chest pain associated with SOB and palpitations that started less than an hour ago. Patient describes pain as sharp, non radiating and has alleviated with one dose of NTG and ASA administrated by EMS. Patient's initial pain rate was a 4/10 prior to medication. 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 Patient states today she made arrangements for and decided to call 911. She denies any nausea, vomiting, fever, chills, diarrhea, abdominal or back pain. Patient mentions daily use of marijuana in the evenings but denies any tobacco or alcohol use. Time Seen by : 10:58 Primary Care Provider: [facility] Reviewed Notes: Nurses Notes, Medications, Allergies Allergies: Coded Allergies: Ibuprofen (Verified Allergy, Unknown, 05/19/22) Home Meds Active Scripts Metoprolol Succinate (Toprol Xl) 25 Mg Tab, 1 TAB PO DAILY, #90 TAB 1 Refill Prov:MARIA ELENA PHILLIPS BUSHEL WORKER 05/21/22 Ranolazine (Ranexa) 500 Mg Tab, 500 MG PO BID, #60 TAB Prov:GAMAL ZUNIGA MD 10/21/19 Clopidogrel Bisulfate (Plavix) 75 Mg Tab, 75 MG PO DAILY, #30 TAB Prov:GAMAL ZUNIGA MD 10/21/19 Atorvastatin Calcium (Lipitor) 10 Mg Tab, 1 TAB PO DAILY, #30 TAB Prov:JESSE HAWKINS MD 10/07/18 Amlodipine Besylate (NORVASC TABLET) 5 Mg Tb, 1 TAB PO DAILY, #30 TAB Prov:JESSE HAWKINS MD 10/06/18 Reported Medications Diclofenac Potassium (Diclofenac Potassium) 50 Mg Tab, 50 MG PO BIDPRN PRN for PAIN SCALE 1 THRU 6 12/22/19 Fluticasone Propionate (Fluticasone Propionate) 0.05 % Cre, 0 VERA DAILYPRN PRN for NASAL CONGESTION 12/22/19 Acetaminophen (Acetaminophen) 325 Mg Tab, 500 MG PO Q6HP PRN for MILD PAIN (1-3 PAIN SCALE) 12/22/19 Aspirin (Aspir-81) 81 Mg Tab, 1 TAB PO DAILY, #30 TAB 5 Refills 12/22/19 Information Source: Patient Mode of Arrival: EMS Severity: Moderate Timing: Hours Duration: Since onset Prehospital treatment: 12 Lead EKG, ASA, System Safety Manager, NTG Location: Chest (L) Radiation: No Radiation Quality: Sharp Onset: At Rest Cardiac Risk Factors: Hyperlipidemia, HTN PE Risk Factors: None History of: Similar pain in past Modifying Factors: Nothing Associated Signs and Symptoms: SOB, Palpitations Past Medical History PAST MEDICAL HISTORY: AFIB, CAD, High Lipids, HTN 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 MANAGER HUMAN CAPITAL History: No Pertinent MANAGER HUMAN CAPITAL History Family History Family History: Family hx of DM, Family hx of heart rico, Family hx of HTN Social History Smoker: Quit Greater Than 1 Year Alcohol: Sober Drugs: Marijuana Lives In: Home Constitutional: denies: chills, diaphoresis, fatigue, fever, malaise, sweats, weakness, others EENTM: denies: blurred vision, double vision, ear bleeding, ear discharge, ear drainage, ear pain, ear ringing, eye pain, eye redness, hearing loss, mouth pain, mouth swelling, nasal discharge, nose bleeding, nose congestion, nose pain, photophobia, tearing, throat pain, throat swelling, voice changes, others Respiratory: reports: shortness of breath; denies: cough, hemoptysis, orthopnea, SOB at rest, SOB with excertion, stridor, wheezing, others Cardiovascular: reports: chest pain, palpitations; denies: dizzy spells, diaphoresis, Dyspnea on exertion, edema, irregular heart beat, left arm pain, lightheadedness, PND, syncope, others Gastrointestinal: denies: abdomen distended, abdominal pain, blood streaked bowels, constipated, diarrhea, dysphagia, difficulty swallowing, hematemesis, melena, nausea, poor appetite, poor fluid intake, rectal bleeding, rectal pain, vomiting, others Genitourinary: denies: abnormal vagina bleeding, burning, dyspareunia, dysuria, flank pain, frequency, hematuria, incontinence, pain, , vagina discharge, urgency, others Neurological: denies: dizziness, fainting, headache, left sided numbness, left sided weakness, numbness, paresthesia, pre-existing deficit, right sided numbness, right sided weakness, seizure, speech problems, tingling, tremors, weakness, others Musculoskeletal: denies: back pain, gout, joint pain, joint swelling, muscle pain, muscle stiffness, neck pain, others Integumetry: denies: bruises, change in color, change in hair/nails, dryness, laceration, lesions, lumps, rash, wounds, others Allergic/Immunocompromised: denies: Difficulty Healing, Frequent Infections, Hives, Itching, others Hematologic/Lymphatic: denies: anemia, blood clots, easy bleeding, easy bruising, swollen glands, others Endocrine: denies: excessive hunger, excessive sweating, excessive thirst, excessive urination, flushing, intolerance to cold, intolerance to heat, unexplained weight gain, unexplained weight loss, others Psychiatric: denies: anxiety, bipolar disorder, depression, hopeless, panic disorder, schizophrenia, sleepless, suicidal, others All Other Systems: Reviewed and Negative Physical Exam General Appearance: Moderate Distress HEENT: Normal ENT Inspection, Pharynx Normal, TMs Normal Neck: Full Range of Motion, Non-Tender, Normal, Normal Inspection Respiratory: Chest Non-Tender, Lungs Clear, No Accessory Muscle Use, No Respiratory Distress, Normal Breath Sounds Cardiovascular: No Edema, No JVD, No Murmur, No Gallop, Normal Peripheral Pulses, Regular Rate/Rhythm Breast Exam: Deferred Gastrointestinal: No Organomegaly, Non Tender, No Pulsatile Mass, Normal Bowel Sounds, Soft Genitalia: Deferred Pelvic: Deferred Rectal: Deferred Extremities: No calf tenderness, Normal capillary refill, Normal inspection, Normal range of motion, Non-tender, No pedal edema Musculoskeletal : Apperance: Normal Neurologic: Alert, business liaison manager II-XII nml as Tested, Motor Weakness, Normal Affect, Normal Mood, No Sensory Deficits Cerebellar Function: Normal Reflexes: Normal Skin: Dry, Normal Color, Warm Lymphatic: No Adenopathy EKG EKG : Pulse Rate (adult): 58 Cardiac Rhythm: NSR Hypertrophy: LAE Was a procedure done? Was a procedure done?: No CP Differential Dx Differential Diagnosis: Angina, Anxiety / Panic Attack, Sinus Tachycardia Differential Diagnosis: Angina, Chest Wall Pain, Costochondritis, Esophageal reflux/spasm, Myocardial Infarction, Pericarditis, Pneumonia, Pulmonary Embolus X-Ray, Labs, Meds, VS Vital Signs Date Time Temp Pulse Resp B/P (MAP) Pulse Ox O2 Delivery O2 Flow Rate FiO2 10/22/24 12:00 64 10/22/24 11:51 55 10/22/24 11:29 97.9 72 16 174/99 (124) 96 97.9 10/22/24 11:29 57 16 96 Room Air* 0 21 10/22/24 11:13 58 10/22/24 11:07 98.5 82 16 150/78 (102) 97 98.5 10/22/24 11:01 58 Lab Test 10/22/24 11:13 Range/Units White Blood Count 9.7 4.4-10.8 10^3/uL Red Blood Count 5.32 H 4.0-5.20 10^6/uL Hemoglobin 16.8 H 12.2-16.2 g/dL Hematocrit 49.0 H 36.0-46.0 % Mean Corpuscular Volume 92.1 80.0-100.0 fL Mean Corpuscular Hemoglobin 31.5 28.0-32.0 pg Mean Corpuscular Hemoglobin Concent 34.2 32.0-36.0 g/dL Red Cell Distribution Width 13.8 11.8-14.3 % Platelet Count 272 140-450 10^3/uL Mean Platelet Volume 8.6 6.9-10.8 fL Neutrophils (%) (Auto) 74.3 37.0-80.0 % Lymphocytes (%) (Auto) 18.1 10.0-50.0 % Monocytes (%) (Auto) 6.3 0.0-12.0 % Eosinophils (%) (Auto) 0.9 0.0-7.0 % Basophils (%) (Auto) 0.4 0.0-2.0 % Neutrophils # (Auto) 7.2 1.6-8.6 10 ^3/uL Lymphocytes # (Auto) 1.8 0.4-5.4 10 ^3/uL Monocytes # (Auto) 0.6 0-1.3 10 ^3/uL Eosinophils # (Auto) 0.1 0-0.8 10 ^3/uL Basophils # (Auto) 0 0-0.2 10 ^3/uL Nucleated Red Blood Cells 0.1 % Sodium Level 145 136-145 mmol/L Potassium Level 3.7 3.5-5.1 mmol/L Chloride Level 114 H 98-107 mmol/L Carbon Dioxide Level 21 20-31 mmol/L Anion Gap 10 5-15 Blood Urea Nitrogen 13 9-23 mg/dL Creatinine 1.03 H 0.550-1.02 mg/dL Glomerular Filtration Rate Calc 61 >90 mL/min BUN/Creatinine Ratio 12.6 10.0-20.0 Serum Glucose 105 74-106 mg/dL Calcium Level 10.3 8.7-10.4 mg/dL Troponin I High Sensitivity 10 </=34 ng/L B-Type Natriuretic Peptide 113.17 0-100 pg/mL XY CHEST PORTABLE, IMPRESSION: No acute intrathoracic abnormality. The patient's CBC is within normal limits The chemistry panel is within normal limits The BNP is within normal limits The troponin levels negative At this time, we did repeat another EKG which shows no sign of any STEMI The patient is being admitted to the hospitalist The diagnosis is acute coronary syndrome Images Reviewed?: Images reviewed and evaluated by me Time of 1ST Reevaluation: 11:30 Reevaluation 1ST: Improved Patient Education/Counseling: Diagnosis, Treatment, Prognosis Family Education/Counseling: No Family Present SEPSIS Sepsis Screen Physician Orders Chest Portable (10/22/24 11:04) Heplock Iv (10/22/24 11:04) System Safety Manager (10/22/24 11:04) Blood Pressure (10/22/24 11:04) Pulse Oximetry (10/22/24 11:04) Urinalysis (10/22/24 11:04) Troponin-I Hs (10/22/24 12:04) Troponin-I Hs (10/22/24 14:04) Electrocardigram (10/22/24 14:04) Vital Signs Date Time Temp Pulse Resp B/P (MAP) Pulse Ox O2 Delivery O2 Flow Rate FiO2 10/22/24 12:00 64 10/22/24 11:51 55 10/22/24 11:29 97.9 72 16 174/99 (124) 96 97.9 10/22/24 11:29 57 16 96 Room Air* 0 21 10/22/24 11:13 58 10/22/24 11:07 98.5 82 16 150/78 (102) 97 98.5 10/22/24 11:01 58 Laboratory Tests Test 10/22/24 11:13 White Blood Count 9.7 10^3/uL (4.4-10.8) Departure 1 Departure Time of Disposition: 12:05 Impression: Primary Impression: Acute coronary syndrome Disposition: 09 ADMITTED INPATIENT Admit to: Tele Condition: Fair Critical Care Note Critical Care Time?: Yes (45 min-critical care time only) Stability Stability form required: Yes Unstable for transfer: Telemetry monitoring (Telemetry monitoring required), ED Physician Assesment (Clinical assesment) Heart Score Heart Score: Heart Score Response (Comments) Value History Moderate Suspicious 1 EKG Normal 0 Age 45-64 1 Risk Factors >3 or Hx ASHD 2 Troponin Normal limit 0 Total 4 I personally scribed for RAMÍREZ WOODS MD ([email or web address]) on 10/22/24 at 11:13. Electronically submitted by Melissa Hernandez ([employer]). I personally scribed for RAMÍREZ WOODS MD ([email or web address]) on 10/22/24 at 11:28. Electronically submitted by Melissa Hernandez ([facility]). I personally scribed for RAMÍREZ WOODS MD ([email or web address]) on 10/22/24 at 11:49. Electronically submitted by Melissa Hernandez ([employer]). RAMÍREZ WOODS MD Oct 22, 2024 11:13
[2024-10-22 11:29] VITALS: PULSE 57; RESP 16; O2SAT 96
[2024-10-22 11:30] LABS: Hematocrit 49.0 % (36.0-46.0); Hemoglobin 16.8 g/dL (12.2-16.2); Mean Corpuscular Hemoglobin 31.5 pg (28.0-32.0); Mean Corpuscular Volume 92.1 fL (80.0-100.0); Nucleated Red Blood Cells % 0.1 %
--- NOTE | 2024-10-22 11:33 | DVH ---
XY CHEST PORTABLE, HISTORY: cp COMPARISON: CHEST PORTABLE on DOS: 05/22/22, CXRP on DOS: 05/22/22, CHEST PORTABLE on DOS: 05/19/22 CHEST PORTABLE on DOS: 05/22/22, CXRP on DOS: 05/22/22, CHEST PORTABLE on DOS: 05/19/22 TECHNICAL DATA: 1 view of the chest was obtained. FINDINGS: Lines and tubes: None Cardiomediastinal silhouette: normal Pulmonary vasculature: normal Lung expansion: normal Lung airspace: normal Lung interstitium: normal Pleura: normal Pneumothorax: no Bones: Unremarkable Other: no IMPRESSION: No acute intrathoracic abnormality.
[2024-10-22 11:40] LABS: Potassium 3.7 mmol/L (3.5-5.1); Sodium 145 mmol/L (136-145)
[2024-10-22 11:41] LABS: Anion Gap 10 (5-15); Carbon Dioxide 21 mmol/L (20-31)
[2024-10-22 11:42] LABS: Calcium 10.3 mg/dL (8.7-10.4)
[2024-10-22 11:46] LABS: Glucose 105 mg/dL (74-106)
[2024-10-22 11:47] LABS: BUN/Creatinine Ratio 12.6 (10.0-20.0); Blood Urea Nitrogen 13 mg/dL (9-23)
[2024-10-22 11:49] LABS: Chloride 114 mmol/L (98-107)
--- NOTE | 2024-10-22 11:52 | ECG ---
[facility] Test Date: 2024-10-22 Test Time: 11:51:33 Pat Name: SEGUNDO PANDEY Department: ER Room: 0289T Gender: F Hat Body Inspector: SHELLY : 1960 Requested By: RAMÍREZ WOODS Order Number: [id number] Reading MD: Amish Kemp Measurements Intervals [place] Rate: 55 P: 70 [place]: 185 QRS: 68 QRSD: 102 T: 79 QT: 450 QTc: 431 Interpretive Statements Sinus rhythm RSR' in V1 or V2, right VCD or RVH Electronically Signed On 10-26-2024 18:53:22 PDT by Amish Kemp Please click the below link to view image of tracing.
[2024-10-22] MEDS: MORPHINE SULFATE 4 MG/ML SYR/VIAL IV ONE (14:08)
[2024-10-22] MEDS: ONDANSETRON HCL 4 MG/2 ML VIAL IV ONE (14:08)
[2024-10-22] MEDS ORDERED: ONDANSETRON HCL 4 MG/2 ML VIAL IV PRN (16:45)
[2024-10-22] MEDS ORDERED: NITROGLYCERIN 0.4 MG SL TAB SL PRN (16:45)
[2024-10-22 17:08] LABS: Triglycerides 108 mg/dL (< 150)
[2024-10-22 17:10] LABS: Cholesterol 166 mg/dL (< 200); HDL Cholesterol 47 mg/dL (40-59)
--- NOTE | 2024-10-22 17:24 | DVHHP2 ---
History of Present Illness Reason for Visit: Chest pain History of Present Illness 64 year old female with a history of hypertension, hyperlipidemia, supraventricular tachycardia, paroxysmal AFib, and coronary artery disease with 100% RCA occlusion not amendable to revascularization, presents to the ED with a left-sided chest pain that began less than an hour ago. The pain was sharp, nonradiating, and associated with shortness of breath and palpitations. Her pain improved with one dose of nitroglycerin and aspirin administered by EMS, rated 4/10 prior to medication. She reports a similar episode four days ago, lasting 3-4 hours, but did not seek care due to care giving responsibilities fo r her , who has had a CVA. She denies nausea, vomiting, fever, chills, or diaphoresis. She uses marijuana daily in the evenings and denies tobacco or alcohol use. She follows with linux developer Dr. Kemp, and her most recent LHC showed RCA 100% occlusion, managed medically. Her current medication includes Plavix, aspirin, metoprolol succinate 25 daily, and Ranexa. Twelve lead ECG today shows normal sinus rhythm without acute ischemic changes but telemetry reveals atrial fibrillation with controlled ventricular response. Past Medical History As stated in HPI Past Surgical History Left heart catheterization Past Social History Marijuana use Review of Systems Constitutional: Yes: Malaise; No: Fever, Chills, Sweats, Weakness, Other Eyes: No: Pain, Vision change, Conjunctivae inflammation, Eyelid inflammation, Other, Redness ENT: No: Ear pain, Ear discharge, Nose pain, Nose discharge, Nose congestion, Mouth pain, Mouth swelling, Throat pain, Throat swelling, Other Respiratory: Shortness of breath; No: Cough, Dry, SOB with excertion, Wheezing, Hemoptysis, Pleuritic Pain, Sputum, Wheezing, Other Cardiovascular: Chest Pain; No: Palpitations, Orthopnea, Paroxysmal Noc. Dyspnea, Edema, Lt Headedness, Other Gastrointestinal: No: Nausea, Vomiting, Abdominal Pain, Diarrhea, Constipation, Melena, Hematochezia, Other Genitourinary: No Dysuria, No Frequency, No Incontinence, No Hematuria, No Ret ention, No Other Musculoskeletal: No: other, neck pain, shoulder pain, arm pain, back pain, hand pain, leg pain, foot pain Neurological: No: Weakness, Numbness, Incoordination, Change in speech, Confusion, Seizures, Other Allergies: Coded Allergies: Ibuprofen (Verified Allergy, Unknown, 05/19/22) Exam Vital Signs Vital Signs Date Time Temp Pulse Resp B/P (MAP) Pulse Ox O2 Delivery O2 Flow Rate FiO2 10/22/24 14:44 64 16 138/74 10/22/24 11:29 97.9 96 97.9 10/22/24 11:29 Room Air* 0 21 General Appearance: Alert, Oriented X3, Cooperative HEENT: Atraumatic, PERRLA, EOMI Respiratory: Clear to auscultation, Normal air movement Cardiovascular: Regular rate, Normal S1, Normal S2 Abdominal: Normal bowel sounds, Soft, No tenderness Extremities: No clubbing, No cyanosis, No edema Skin: No rashes Neuro: Normal gait, Normal tone Psych/Mental Status: Mental status NL Labs/Xrays Labs Test 10/22/24 14:50 10/22/24 11:13 Range/Units Troponin I High Sensitivity 15 </=34 ng/L White Blood Count 9.7 4.4-10.8 10^3/uL Red Blood Count 5.32 H 4.0-5.20 10^6/uL Hemoglobin 16.8 H 12.2-16.2 g/dL Hematocrit 49.0 H 36.0-46.0 % Mean Corpuscular Volume 92.1 80.0-100.0 fL Mean Corpuscular Hemoglobin 31.5 28.0-32.0 pg Mean Corpuscular Hemoglobin Concent 34.2 32.0-36.0 g/dL Red Cell Distribution Width 13.8 11.8-14.3 % Platelet Count 272 140-450 10^3/uL Mean Platelet Volume 8.6 6.9-10.8 fL Neutrophils (%) (Auto) 74.3 37.0-80.0 % Lymphocytes (%) (Auto) 18.1 10.0-50.0 % Monocytes (%) (Auto) 6.3 0.0-12.0 % Eosinophils (%) (Auto) 0.9 0.0-7.0 % Basophils (%) (Auto) 0.4 0.0-2.0 % Neutrophils # (Auto) 7.2 1.6-8.6 10 ^3/uL Lymphocytes # (Auto) 1.8 0.4-5.4 10 ^3/uL Monocytes # (Auto) 0.6 0-1.3 10 ^3/uL Eosinophils # (Auto) 0.1 0-0.8 10 ^3/uL Basophils # (Auto) 0 0-0.2 10 ^3/uL Nucleated Red Blood Cells 0.1 % Sodium Level 145 136-145 mmol/L Potassium Level 3.7 3.5-5.1 mmol/L Chloride Level 114 H 98-107 mmol/L Carbon Dioxide Level 21 20-31 mmol/L Anion Gap 10 5-15 Blood Urea Nitrogen 13 9-23 mg/dL Creatinine 1.03 H 0.550-1.02 mg/dL Glomerular Filtration Rate Calc 61 >90 mL/min BUN/Creatinine Ratio 12.6 10.0-20.0 Serum Glucose 105 74-106 mg/dL Calcium Level 10.3 8.7-10.4 mg/dL B-Type Natriuretic Peptide 113.17 0-100 pg/mL PROCEDURE(s): CXRP - CHEST PORTABLE REASON: cp ORDER NUMBER(s): [id number], ACCESSION NUMBER(s): [id number] XY CHEST PORTABLE, HISTORY: cp COMPARISON: CHEST PORTABLE on DOS: 05/22/22, CXRP on DOS: 05/22/22, CHEST PORTABLE on DOS: 05/19/22 CHEST PORTABLE on DOS: 05/22/22, CXRP on DOS: 05/22/22, CHEST PORTABLE on DOS: 05/19/22 TECHNICAL DATA: 1 view of the chest was obtained. FINDINGS: Lines and tubes: None Cardiomediastinal silhouette: normal Pulmonary vasculature: normal Lung expansion: normal Lung airspace: normal Lung interstitium: normal Pleura: normal Pneumothorax: no Bones: Unremarkable Other: no IMPRESSION: No acute intrathoracic abnormality. Assessment/Plan Assessment/Plan # chest pain --likely stable angina or demand ischemia, heart score 4 # rule out progressive CAD # s/p LHC with no catheter based intervention, RCA 100% occluded not amenable for revascularization # shortness of breath and palpitations--likely related to anginal episode or SVT history # hx of Afib, transient Afib noted on Telemetry, repeated 12 lead ECG revealed sinus rhythm # hyperlipidemia * Admit to telemetry unit * Echocardiogram (previous echo EF 60-65%) * Continue with dual antiplatelet therapy, beta wagner, and Ranexa, continue with lipid lowering agent * Cardiology consult on risk stratification and possible need for repeat ischemic testing * Already on optimal antianginal therapy including beta wagner and Ranexa * ?Transient AFib, once confirmed mainly to start on anticoagulants. CHADS-VASc score3. Continue with the beta wagner. * 12 lead ECG with no acute changes or evidence of acute ischemia. Multiple troponins are negative * Monitor on telemetry # hypertension # hyperlipidemia * Continue with antihypertensive, hyperlipidemia medications * monitor * DASh diet * Lipid panel # marijuana use Advised on reduction or discontinuation as this may contribute to vasospasm, tachycardia or anginal symptoms DVT prophylaxis Medical plan discussed with patient and RN Plan discussed with: Patient My Orders Orders - TORRES BOSTON TACK CLEANER Procedure Category Date Status Time Admit ADMIT 10/22/24 Transmitted 16:36 Code Status CODE 10/22/24 Transmitted 16:36 Hydrocodone-Acet PHA 10/22/24 Transmitted 5/325mg Tab ([place] 16:45 Ondansetron Hcl PHA 10/22/24 Transmitted (Zofran) 16:45 Enoxaparin Sodium PHA 10/23/24 Transmitted (Lovenox) 10:00 Fall Risk Precautions [facility] 10/22/[address] 16:36 Complete Blood Count LAB 10/23/24 Verified 04:00 Comprehensive LAB 10/23/24 Verified Metabolic Panel 04:00 Cardiac DIET 10/22/24 Transmitted Diet-2gna,Lofat,Lochol Dinner Echo 2d Mode Cardiac US 10/22/24 Transmitted DOP 16:36 Condition: Fair [facility] 10/22/24 Transmitted 16:36 Acetaminophen Tablet [facility] 10/22/24 Transmitted (Tylenol Tablet) 16:45 Morphine Sulfate [facility] 10/22/24 Transmitted Injection 16:45 Nitroglycerin [facility] 10/22/24 Transmitted Sublingual (Ntrostat 16:45 Morphine Sulfate [facility] 10/22/24 Transmitted Injection 16:45 Stat Ekg For Chest [facility] 10/22/24 Transmitted Pain 16:36 Notify Of Changes [facility] 10/22/24 Transmitted From Base 16:36 Litigation Examiner For [facility] 10/22/24 Transmitted 24 Hours 16:36 Emergency Dysrhythmia [facility] 10/22/24 Transmitted Protocol 16:36 Rhythm Strips Once [facility] 10/22/24 Transmitted Every Shift 16:36 Oxygen By Nasal RT 10/22/24 Transmitted Cannula 16:36 Urinalysis LAB 10/22/24 Transmitted 16:36 Thyroid Stimulating LAB 10/22/24 Transmitted Hormone 16:36 Lipid Panel LAB 10/22/24 Transmitted 16:36 * Cardiology Consult CONS 10/22/24 Transmitted 16:36 Amlodipine Tablet PHA 10/23/24 Transmitted (Norvasc Tablet) 10:00 Aspirin Enteric PHA 10/23/24 Transmitted Coated Tablet 10:00 Clopidogrel Bisulfate PHA 10/23/24 Transmitted (Plavix) 10:00 Ranolazine (Ranexa Er) PHA 10/22/24 Transmitted 22:00 (Nf) Atorvastatin PHA 10/23/24 Transmitted Calcium (Lipitor) 10:00 (Nf) Metoprolol PHA 10/23/24 Transmitted Succinate (Toprol Xl) 10:00 Date of Service: Oct 22, 2024 Billing Provider: TORRES BOSTON Common Visit Codes: 15560-[id number] INP/OBS CARE (HIGH) Consultation Codes: [id number] CONSULT <45MIN TORRES BOSTON Oct 22, 2024 17:24
[2024-10-22 18:29] VITALS: BP 177/92; PULSE 60; RESP 18; RESP 19; TEMP 98.4; O2SAT 96
[2024-10-22] MEDS: MORPHINE SULFATE INJ 2 MG/ml SYRG IV PRN (19:30)
[2024-10-22 20:00] VITALS: PULSE 56; PULSE 75; RESP 18; O2SAT 96
[2024-10-22 21:00] VITALS: BP 165/106; PULSE 56; RESP 18; TEMP 97.7; O2SAT 96
[2024-10-22] MEDS: ATORVASTATIN 20 MG TAB PO SCH (21:05)
[2024-10-22] MEDS: RANOLAZINE ER 500 MG TAB PO SCH (21:05)
[2024-10-23] VITALS (8 sets, daily range): BP systolic 138–180; BP diastolic 79–119; PULSE 54–135; RESP 16–20; TEMP 97.6–98.3; O2SAT 94–98
[2024-10-23] MEDS: HYDROcodone-ACET 5/325MG TAB PO PRN (02:08)
[2024-10-23 06:07] LABS: Hematocrit 46.1 % (36.0-46.0); Hemoglobin 15.8 g/dL (12.2-16.2); Mean Corpuscular Hemoglobin 31.8 pg (28.0-32.0); Mean Corpuscular Volume 92.9 fL (80.0-100.0); Nucleated Red Blood Cells % 0.0 %
[2024-10-23 06:33] LABS: Alanine Aminotransferase 11 U/L (7-40); Alkaline Phosphatase 82 U/L (46-116); Anion Gap 10 (5-15); BUN/Creatinine Ratio 16.0 (10.0-20.0); Bilirubin, Total 0.5 mg/dL (0.2-1.0); Blood Urea Nitrogen 20 mg/dL (9-23); Calcium 10.3 mg/dL (8.7-10.4); Carbon Dioxide 24 mmol/L (20-31); Glucose 96 mg/dL (74-106); Total Protein 7.4 g/dL (5.7-8.2)
[2024-10-23 06:35] LABS: Albumin 4.9 g/dL (3.2-4.8); Chloride 112 mmol/L (98-107); Potassium 3.4 mmol/L (3.5-5.1); Sodium 146 mmol/L (136-145)
[2024-10-23] MEDS: CLOPIDOGREL BISULFATE 75 MG TAB PO SCH (09:03)
[2024-10-23] MEDS: ASPirin-EC 81 mg tab PO SCH (09:03)
[2024-10-23] MEDS: METOPROLOL SUCCINATE XL 50 MG TAB PO SCH (09:04)
[2024-10-23] MEDS: ENOXAPARIN SOD 40 MG/0.4 ML SYRINGE SC SCH (09:04)
[2024-10-23] MEDS ORDERED: FLECAINIDE ACETATE 50 MG TAB PO ONE (11:15)
[2024-10-23] MEDS: FLECAINIDE ACETATE 50 MG TAB PO ONE (11:51)
[2024-10-23] MEDS: POTASSIUM EFFERVESENT TAB 25 MEQ PO ONE (11:52)
--- NOTE | 2024-10-23 11:58 | ECG ---
[facility] Test Date: 2024-10-22 Test Time: 17:42:07 Pat Name: SEGUNDO PANDEY [facility] F Economics Consultant: JACKY : 1960 Requested By: RAMÍREZ WOODS Order Number: [id number] Reading MD: Amish Kemp Measurements Intervals [place] Rate: 56 P: 156 SD: 195 QRS: 193 QRSD: 106 T: 137 QT: 460 QTc: 444 Interpretive Statements Sinus or ectopic atrial rhythm Consider right ventricular hypertrophy Nonspecific T abnormalities, lateral leads Electronically Signed On 10-26-2024 18:54:39 PDT by Amish Kemp Please click the below link to view image of tracing.
[2024-10-23 12:41] LABS: Urine Protein, UAD 1+ (Negative)
--- NOTE | 2024-10-23 12:49 | DVHSR ---
APPROVED REPORT EXAM: Two-dimensional and M-mode echocardiogram with Doppler and color Doppler. Blood Pressure: 138/74 mmHg INDICATION CAD RISK FACTORS Height: 5'5", Weight: 121 DIMENSIONS LVDd4.3 (3.8-5.7cm)LA (2D)3.7 (1.9-4.0cm)Aortic Root3.4 (2.0-3.7cm) LVDs3.1 (2.5-4.0cm)LA (MM) (1.9-4.0cm)Aortic Cusp Exc1.9 (1.5-2.0cm) EF (%) 56.0 (55-70%)Rt. Atrium4.2 (1.9-4.0cm)Asc. Aorta cm IVSd1.1 (0.7-1.1cm)RV (D) (1.8-2.4cm) PWd1.1 (0.7-1.1cm) Mitral Valve MitralMitral Stenosis E wave0.85m/sMV Mean GR.mmHg A wave0.92m/sMV Peak GR.mmHg E/A ratio0.92D MVAcm2 DECEL [id number] 1/2 Timems Aortic Valve Aortic ValveAortic Stenosis V11.06m/Matthew Mean GR.3mmHg V21.34m/Matthew Peak GR.7mmHg LVOT Diameter1.9 (1.8-2.4cm)Doppler AVA2.24cm2 Pulmonic Valve V21.11m/s Other Information Technically limited study due to body habitus. Conclusion lvef 65% mild LVH grade 1 diastolic dysfunction normal rv function left atrium enlarged mild no severe valve abnormalities noted
[2024-10-23 12:52] LABS: Opiate Scree,Urine Neg (NEGATIVE)
[2024-10-23 12:58] LABS: Amphetamine Screen, Urine Neg (NEGATIVE); Barbiturate Scree,Urine Neg (NEGATIVE); Benzodiazephine Screen, Urine Neg (NEGATIVE); Cannabinoid Screen, Urine Pos (NEGATIVE); Cocaine Screen, Urine Neg (NEGATIVE); Phencyclidine Screen, Urine Neg (NEGATIVE)
--- NOTE | 2024-10-23 13:53 | DVHCONRES ---
Date Seen: Oct 23, 2024 Resident Creating Document: SWETA SERNA RESDIENT History of Present Illness This is a 64-year-old female with past medical history of paroxysmal AFib, hypertension, dyslipidemia, and coronary artery disease came to the hospital due to palpitation. Per patient, she has on and off palpitation since 4 days which has been worsened since 1 day. She also reports of shortness of breaths and mild chest discomfort. She denies fever, cough, or any recent sick contacts/ chest trauma. PMHx: paroxysmal AFib, hypertension, dyslipidemia, and coronary artery disease (she had an angiogram on 2019, showed abrupt total occlusion of RCA at proximal/mid segment with 2 small side branch) Home medication: Flecainide 50 mg twice daily, aspirin, metoprolol, ranolazine, atorvastatin, losartan and sertraline Allergic history: Ibuprofen Patient seen and examined at the bedside. Patient is still complaining of occasional palpitation. Family History: Alzheimer's disease G8 MOTHER Diabetes mellitus G8 MOTHER FH: heart attack G8 FATHER Allergies: Coded Allergies: Ibuprofen (Verified Allergy, Unknown, 05/19/22) Home Meds Active Scripts Metoprolol Succinate (Toprol Xl) 25 Mg Tab, 1 TAB PO DAILY, #90 TAB 1 Refill Prov:MARIA EELNA PHILLIPS NP 05/21/22 Ranolazine (Ranexa) 500 Mg Tab, 500 MG PO BID, #60 TAB Prov:GAMAL ZUNIGA MD 10/21/19 Clopidogrel Bisulfate (Plavix) 75 Mg Tab, 75 MG PO DAILY, #30 TAB Prov:GAMAL ZUNIGA MD 10/21/19 Atorvastatin Calcium (Lipitor) 10 Mg Tab, 1 TAB PO DAILY, #30 TAB Prov:JESSE HAWKINS MD 10/07/18 Amlodipine Besylate (NORVASC TABLET) 5 Mg Tb, 1 TAB PO DAILY, #30 TAB Prov:JESSE HAWKINS MD 10/06/18 Reported Medications Diclofenac Potassium (Diclofenac Potassium) 50 Mg Tab, 50 MG PO BIDPRN PRN for PAIN SCALE 1 THRU 6 12/22/19 Fluticasone Propionate (Fluticasone Propionate) 0.05 % Cre, 0 VERA DAILYPRN PRN for NASAL CONGESTION 12/22/19 Acetaminophen (Acetaminophen) 325 Mg Tab, 500 MG PO Q6HP PRN for MILD PAIN (1-3 PAIN SCALE) 12/22/19 Aspirin (Aspir-81) 81 Mg Tab, 1 TAB PO DAILY, #30 TAB 5 Refills 12/22/19 Current Medications Current Medications Medications (Trade) Dose Ordered Sig/Merly Route PRN Reason Start Time Stop Time Status Last Admin Acetaminophen/ Hydrocodone Bitart ([place] 5/325MG Tab) 1 tab Q4HP PRN PO MODERATE PAIN (4-6 PAIN SCALE) 10/22/24 16:45 10/23/24 02:08 Ondansetron HCl (Zofran) 4 mg Q4HP PRN IV NAUSEA / VOMITING 10/22/24 16:45 Enoxaparin Sodium (Lovenox) 40 mg DAILY SC 10/23/24 10:00 Acetaminophen (Tylenol Tablet) 650 mg Q6HP PRN PO PAIN SCALE 1-3 OR TEMP>100.4 10/22/24 16:45 Morphine Sulfate 2 mg Q4HPRN PRN IV SEVERE PAIN (7-10 PAIN SCALE) 10/22/24 16:45 10/22/24 19:30 Nitroglycerin (Ntrostat Sublingual) 0.4 mg Q5MINP PRN SL FOR CHEST PAIN 10/22/24 16:45 Morphine Sulfate 2 mg Q30M PRN IV FOR CHEST PAIN 10/22/24 16:45 Amlodipine Besylate (Norvasc Tablet) 5 mg DAILY PO 10/23/24 10:00 10/23/24 09:04 Aspirin (Ecotrin Enteric Coated Tablet) 81 mg DAILY PO 10/23/24 10:00 10/23/24 09:03 Clopidogrel Bisulfate (Plavix) 75 mg DAILY PO 10/23/24 10:00 10/23/24 09:03 Ranolazine (Ranexa ER) 500 mg BID PO 10/22/24 22:00 10/23/24 09:03 Atorvastatin Calcium (Lipitor) 10 mg HS PO 10/22/24 22:00 10/22/24 21:05 Metoprolol Succinate (Toprol Xl) 25 mg DAILY PO 10/23/24 10:00 10/23/24 09:04 Flecainide Acetate (Tambocor Tablet) 50 mg Q12HR PO 10/23/24 22:00 Potassium Chloride 100 ml @ 50 mls/hr Q2H IV 10/23/24 13:00 10/23/24 16:59 Vital Signs Vital Signs Date Time Temp Pulse Resp B/P (MAP) Pulse Ox O2 Delivery O2 Flow Rate FiO2 10/23/24 12:35 97.9 86 19 180/99 (126) 98 97.9 10/23/24 08:00 Room Air* 0 21 Physical Exam General Appearance: Alert, Oriented X3, Cooperative, No acute distress HEENT: Atraumatic, PERRLA, EOMI, Mucous membrane moist/pink Respiratory: Clear to auscultation, Normal air movement Cardiovascular: Regular rate, Normal S1, Normal S2, No murmurs, no chest wall tenderness Abdominal: Normal bowel sounds, Soft, No tenderness, No hepatospenomegaly, No masses Extremities: No clubbing, No cyanosis, No edema, Normal pulses, No tenderness/swelling Skin: No rashes, No breakdown, No significant lesion Neuro: Normal gait, Normal speech, Strength at 5/5 X4 ext, Normal tone, Sensation intact, Cranial nerves 3-12 NL, Reflexes 2+ Psych/Mental Status: Mental status NL, Mood NL Labs/Diagnostic Data Labs Test 10/23/24 12:05 10/23/24 09:14 10/23/24 05:26 10/22/24 14:50 Range/Units Urine Color Light-yellow Yellow Urine Clarity Clear Clear Urine pH 6.5 5.0-9.0 Urine Specific [place] 1.007 1.001-1.035 Urine Protein 1+ H Negative Urine Ketones Negative Negative Urine Blood Negative Negative /uL Urine Nitrite Negative Negative Urine Bilirubin Negative Negative Urine Urobilinogen Normal Negative mg/dL Urine Leukocyte Esterase 1+ Negative /uL Urine RBC 1 0 - 4 /hpf Urine Microscopic WBC 7 H 0-5 /HPF Urine Squamous Epithelial Cells Few <5 /hpf Urine Bacteria None seen None Seen /hpf Urine Glucose Normal Normal mg/dL Urine Opiates Screen Neg NEGATIVE Urine Fentanyl Screen Neg NEGATIVE Urine Barbiturates Screen Neg NEGATIVE Urine Phencyclidine Screen Neg NEGATIVE Urine Amphetamines Screen Neg NEGATIVE Urine Benzodiazepines Screen Neg NEGATIVE Urine Cocaine Screen Neg NEGATIVE Urine Cannabinoids Screen Pos NEGATIVE White Blood Count 10.5 4.4-10.8 10^3/uL Red Blood Count 4.96 4.0-5.20 10^6/uL Hemoglobin 15.8 12.2-16.2 g/dL Hematocrit 46.1 H 36.0-46.0 % Mean Corpuscular Volume 92.9 80.0-100.0 fL Mean Corpuscular Hemoglobin 31.8 28.0-32.0 pg Mean Corpuscular Hemoglobin Concent 34.2 32.0-36.0 g/dL Red Cell Distribution Width 13.6 11.8-14.3 % Platelet Count 247 140-450 10^3/uL Mean Platelet Volume 8.4 6.9-10.8 fL Neutrophils (%) (Auto) 71.7 37.0-80.0 % Lymphocytes (%) (Auto) 19.8 10.0-50.0 % Monocytes (%) (Auto) 7.1 0.0-12.0 % Eosinophils (%) (Auto) 1.1 0.0-7.0 % Basophils (%) (Auto) 0.3 0.0-2.0 % Neutrophils # (Auto) 7.5 1.6-8.6 10 ^3/uL Lymphocytes # (Auto) 2.1 0.4-5.4 10 ^3/uL Monocytes # (Auto) 0.7 0-1.3 10 ^3/uL Eosinophils # (Auto) 0.1 0-0.8 10 ^3/uL Basophils # (Auto) 0 0-0.2 10 ^3/uL Nucleated Red Blood Cells 0.0 % Sodium Level 146 H 136-145 mmol/L Potassium Level 3.4 L 3.5-5.1 mmol/L Chloride Level 112 H 98-107 mmol/L Carbon Dioxide Level 24 20-31 mmol/L Anion Gap 10 5-15 Blood Urea Nitrogen 20 9-23 mg/dL Creatinine 1.25 H 0.550-1.02 mg/dL Glomerular Filtration Rate Calc 48 >90 mL/min BUN/Creatinine Ratio 16.0 10.0-20.0 Serum Glucose 96 74-106 mg/dL Calcium Level 10.3 8.7-10.4 mg/dL Total Bilirubin 0.5 0.2-1.0 mg/dL Aspartate Amino Transferase (AST) 15 13-40 U/L Alanine Aminotransferase (ALT) 11 7-40 U/L Alkaline Phosphatase 82 46-116 U/L Total Protein 7.4 5.7-8.2 g/dL Albumin 4.9 H 3.2-4.8 g/dL Magnesium Level 2.1 1.6-2.6 mg/dL Troponin I High Sensitivity 15 </=34 ng/L Triglycerides Level 108 < 150 mg/dL Cholesterol Level 166 < 200 mg/dL LDL Cholesterol 105 H < 100 mg/dL HDL Cholesterol 47 40-59 mg/dL Thyroid Stimulating Hormone (TSH) 1.78 0.55-4.78 uIU/mL Test 10/22/24 11:13 Range/Units B-Type Natriuretic Peptide 113.17 0-100 pg/mL Assessment Paroxysmal AFib, currently sinus rhythm Hypertension Dyslipidemia History of coronary artery disease * EKGs shows normal sinus rhythm with no significant ST or T-wave changes, on telemetry the patient had episodes of atrial fibrillation, currently sinus rhythm * Serial trop I and BNP is within normal limits * Chest x-ray shows no significant intrathoracic abnormalities * Echo shows mild LVH/grade 1 diastolic dysfunction with the LVEF 65% Plan/recommendation * Stopped flecainide and started on Multaq 400 mg (dronedarone) twice daily * Continue rest of home medicine * We follow with patient * Rest of plan per primary team Thank you for giving us the opportunity to care of your patient. Please call back if you have any questions/concerns. Plan/Recommendation [facility] independetly reviewed rca director of managed care vs very small vessel flec not working at this time for pAF, start multaq fu with her cards normal lvef Plan discussed with: Patient, Other (RN) SWETA SERNA Oct 23, 2024 13:53 MESHA BULLARD MD Oct 23, 2024 14:03
[2024-10-23] MEDS: POTASSIUM CHL 20MEQ/100ML 100 ML IV SCH (13:58)
--- NOTE | 2024-10-23 19:22 | DVHPN2 ---
Subjective I am assuming the care of the patient from today onwards who was under the care of the hospitalist team. Patient's flecainide has been discontinued and started on Multaq. Patient is complaining of some chest pain. Changes from previous H/P or p: No Changes Eyes: No Pain, No Vision change, No Conjunctivae inflammation, No Eyelid inflammation, No Other, No Redness ENT: No Ear pain, No Ear discharge, No Nose pain, No Nose discharge, No Nose congestion, No Mouth pain, No Mouth swelling, No Throat pain, No Throat swelling, No Other Cardiovascular: Chest Pain; No Palpitations, No Orthopnea, No Paroxysmal Noc. Dyspnea, No Edema, No Lt Headedness, No Other Respiratory: No Cough, No Dry; Shortness of breath; No SOB with excertion, No Wheezing, No Hemoptysis, No Pleuritic Pain, No Sputum, No Other Gastrointestinal: No Nausea, No Vomiting, No Abdominal Pain, No Diarrhea, No Constipation, No Melena, No Hematochezia, No Other Genitourinary: No Dysuria, No Frequency, No Incontinence, No Hematuria, No Retention, No Other Musculoskeletal: No other, No neck pain, No shoulder pain, No arm pain, No back pain, No hand pain, No leg pain, No foot pain Objective Vitals Vital Signs Date Time Temp Pulse Resp B/P (MAP) Pulse Ox O2 Delivery O2 Flow Rate FiO2 10/23/24 16:45 97.7 79 17 138/79 (98) 97 97.7 10/23/24 08:00 Room Air* 0 21 Intake/Output Intake and Output 10/23/24 07:00 Intake Total 400 ml Balance 400 ml Intake Oral 400 ml # Voids 6 Exam HEENT pupils are reactive Neck is supple CV is S1-S2 regular rate and rhythm Respiratory viral clear GI positive bowel sound Extremity no edema IRONER no motor deficits Medications Current Medications Medications Dose Ordered Sig/Merly Route Start Time Stop Time Status Last Admin Dose Admin Acetaminophen/ Hydrocodone Bitart 1 tab Q4HP PRN PO 10/22/24 16:45 10/23/24 02:08 1 TAB Ondansetron HCl 4 mg Q4HP PRN IV 10/22/24 16:45 Acetaminophen 650 mg Q6HP PRN PO 10/22/24 16:45 Morphine Sulfate 2 mg Q4HPRN PRN IV 10/22/24 16:45 7/6/25 19:30 2 MG Nitroglycerin 0.4 mg Q5MINP PRN SL 10/22/24 16:45 Morphine Sulfate 2 mg Q30M PRN IV 10/22/24 16:45 Amlodipine Besylate 5 mg DAILY PO 10/23/24 10:00 10/23/24 09:04 5 MG Aspirin 81 mg DAILY PO 10/23/24 10:00 10/23/24 09:03 81 MG Clopidogrel Bisulfate 75 mg DAILY PO 10/23/24 10:00 10/23/24 09:03 75 MG Ranolazine 500 mg BID PO 10/22/24 22:00 10/23/24 09:03 500 MG Atorvastatin Calcium 10 mg HS PO 10/22/24 22:00 10/22/24 21:05 10 MG Metoprolol Succinate 25 mg DAILY PO 10/23/24 10:00 10/23/24 09:04 25 MG Dronedarone 400 mg BIDWM PO 10/23/24 18:00 Enoxaparin Sodium 60 mg Q12HR SC 10/23/24 22:00 Laboratory Results Laboratory Tests 10/23/24 05:26 Chemistry Test 10/23/24 05:26 Albumin 4.9 g/dL (3.2-4.8) H Calcium Level 10.3 mg/dL (8.7-10.4) Magnesium Level 2.1 mg/dL (1.6-2.6) Total Protein 7.4 g/dL (5.7-8.2) LFT Test 10/23/24 05:26 Alanine Aminotransferase (ALT) 11 U/L (7-40) Alkaline Phosphatase 82 U/L (46-116) Aspartate Amino Transferase (AST) 15 U/L (13-40) Total Bilirubin 0.5 mg/dL (0.2-1.0) Urinalysis Test 10/23/24 12:05 Urine Color Light-yellow (Yellow) Urine Clarity Clear (Clear) Urine pH 6.5 (5.0-9.0) Urine Specific [place] 1.007 (1.001-1.035) Urine Protein 1+ (Negative) H Urine Ketones Negative (Negative) Urine Blood Negative /uL (Negative) Urine Nitrite Negative (Negative) Urine Bilirubin Negative (Negative) Urine Urobilinogen Normal mg/dL (Negative) Urine Leukocyte Esterase 1+ /uL (Negative) Urine RBC 1 /hpf (0 - 4) Urine Microscopic WBC 7 /HPF (0-5) H Urine Squamous Epithelial Cells Few /hpf (<5) Urine Bacteria None seen /hpf (None Seen) Urine Glucose Normal mg/dL (Normal) Assessment/Plan Assessment/Plan 64-year-old female with a known history of coronary artery disease with a occlusion of the RCA can not be started because of small branches, hypertension, dyslipidemia, paroxysmal AFib over initiation with the hospital with a chest pain palpitations found to have 1. Paroxysmal AFib 2. Hypertension 3. Dyslipidemia 4. Coronary artery disease -discontinue flecainide, continue Multaq follow up Cardiology recommended Plan discussed with: Patient Date of Service: Oct 23, 2024 Billing Provider: KATIE LYNCH CDS Common Visit Codes: [id number] INP/OBS CARE(MOD) SUSANNE LYNCH MD Oct 23, 2024 19:22
[2024-10-23] MEDS: DRONEDARONE HCL 400 MG TAB PO SCH (19:35)
[2024-10-23] MEDS: MORPHINE SULFATE INJ 2 MG/ml SYRG IV PRN (20:42)
[2024-10-23] MEDS ORDERED: FLECAINIDE ACETATE 50 MG TAB PO SCH (22:00)
[2024-10-23] MEDS: ENOXAPARIN SOD 60 MG/0.6 ML SYRINGE SC SCH (22:48)
[2024-10-23] MEDS: dilTIAZem 25 MG/5 ML VIAL IV ONE (23:00)
[2024-10-24] VITALS (8 sets, daily range): BP systolic 127–155; BP diastolic 60–103; PULSE 60–81; RESP 14–20; TEMP 97.9–98.4; O2SAT 96–99
[2024-10-24] MEDS ORDERED: SERT100T PO (04:20)
--- NOTE | 2024-10-24 15:50 | DVHPN2 ---
Progress Note Date Seen: Oct 24, 2024 Resident Creating Document: SWETA SERNA NADEGE Has the PT tested + for MRSA If YES, has PT been informed?: No Medical Necessity Reason Pt with a Central, PICC or Fol: No Subjective Review of Systems Patient seen and examined at the bedside. Patient is feeling better since admission. Objective vital signs Vital Sign Date Time Temp Pulse Resp B/P (MAP) Pulse Ox O2 Delivery O2 Flow Rate FiO2 10/24/24 13:00 98.4 60 20 140/96 (111) 98 98.4 10/24/24 08:00 Room Air* 0 21 Total Intake and Output 10/23/24 10/23/24 10/24/24 15:00 23:00 07:00 Intake Total 620 ml 1150 ml Balance 620 ml 1150 ml medications Current Medications Medications Dose Ordered Sig/Merly Route Start Time Stop Time Status Last Admin Dose Admin Acetaminophen/ Hydrocodone Bitart 1 tab Q4HP PRN PO 10/22/24 16:45 10/23/24 02:08 1 TAB Ondansetron HCl 4 mg Q4HP PRN IV 10/22/24 16:45 Acetaminophen 650 mg Q6HP PRN PO 10/22/24 16:45 Morphine Sulfate 2 mg Q4HPRN PRN IV 10/22/24 16:45 10/22/24 19:30 2 MG Nitroglycerin 0.4 mg Q5MINP PRN SL 10/22/24 16:45 Morphine Sulfate 2 mg Q30M PRN IV 10/22/24 16:45 10/23/24 20:42 2 MG Amlodipine Besylate 5 mg DAILY PO 10/23/24 10:00 10/24/24 09:13 5 MG Aspirin 81 mg DAILY PO 10/23/24 10:00 10/24/24 09:14 81 MG Clopidogrel Bisulfate 75 mg DAILY PO 10/23/24 10:00 10/24/24 09:12 75 MG Ranolazine 500 mg BID PO 10/22/24 22:00 10/24/24 09:13 500 MG Atorvastatin Calcium 10 mg HS PO 10/22/24 22:00 10/23/24 22:47 10 MG Metoprolol Succinate 25 mg DAILY PO 10/23/24 10:00 10/24/24 09:13 25 MG Dronedarone 400 mg BIDWM PO 10/23/24 18:00 10/24/24 09:12 400 MG Enoxaparin Sodium 60 mg Q12HR SC 10/23/24 22:00 Examination General Appearance: Alert, Oriented X3, Cooperative, No acute distress HEENT: Atraumatic, PERRLA, EOMI, Mucous membrane moist/pink Respiratory: Clear to auscultation, Normal air movement Cardiovascular: Regular rate, Normal S1, Normal S2, No murmurs, no chest wall tenderness Abdominal: Normal bowel sounds, Soft, No tenderness, No hepatospenomegaly, No masses Extremities: No clubbing, No cyanosis, No edema, Normal pulses, No tenderness/swelling Skin: No rashes, No breakdown, No significant lesion Neuro: Normal gait, Normal speech, Strength at 5/5 X4 ext, Normal tone, Sensation intact, Cranial nerves 3-12 NL, Reflexes 2+ Psych/Mental Status: Mental status NL, Mood NL laboratory and microbiology Laboratory Tests 10/23/24 05:26 Test 10/23/24 05:26 Range/Units Serum Glucose 96 74-106 mg/dL Labs and/or images reviewed: Labs reviewed by me, Image(s) reviewed by me Problem List/Assessment/Plan Problem List/Assessment/Plan Paroxysmal AFib, currently sinus rhythm Hypertension Dyslipidemia History of coronary artery disease * EKGs shows normal sinus rhythm with no significant ST or T-wave changes, on telemetry the patient had episodes of atrial fibrillation, currently sinus rhythm * Serial trop I and BNP is within normal limits * Chest x-ray shows no significant intrathoracic abnormalities * Echo shows mild LVH/grade 1 diastolic dysfunction with the LVEF 65% Plan/recommendation (Case discussed with Dr. Pool) * We sign of the patient * Discharge plan from Cardiology standpoint: Stop flecainide and started on Multaq 400 mg (dronedarone) twice daily, follow up with Dr. Kemp in the office. * Continue rest of home medicine * Rest of plan per primary team Thank you for giving us the opportunity to care of your patient. Please call back if you have any questions/concerns. Plan discussed with: Patient, Other (RN) My Orders My Orders Orders - SWETA SERNA Procedure Category Date Status Time Enoxaparin Sodium PHA 10/23/24 In Process (Lovenox) 22:00 SWETA SERNA RESDIENT Oct 24, 2024 15:50
[2024-10-24] MEDS ORDERED: DRON400T PO (16:33)
[2024-10-24] MEDS: POLYETHYLENE GLYCOL 17 GM PWDR PO PRN (17:54)
[2024-10-24] MEDS: DOCUSATE SOD 100 MG CAP PO PRN (18:07)
--- NOTE | 2024-10-24 18:57 | DVHPN2 ---
Subjective I am assuming the care of the patient from today onwards who was under the care of the hospitalist team. Patient's flecainide has been discontinued and started on Multaq. Patient is complaining of some chest pain. Changes from previous H/P or p: No Changes Eyes: No Pain, No Vision change, No Conjunctivae inflammation, No Eyelid inflammation, No Other, No Redness ENT: No Ear pain, No Ear discharge, No Nose pain, No Nose discharge, No Nose congestion, No Mouth pain, No Mouth swelling, No Throat pain, No Throat swelling, No Other Cardiovascular: Chest Pain; No Palpitations, No Orthopnea, No Paroxysmal Noc. Dyspnea, No Edema, No Lt Headedness, No Other Respiratory: No Cough, No Dry; Shortness of breath; No SOB with excertion, No Wheezing, No Hemoptysis, No Pleuritic Pain, No Sputum, No Other Gastrointestinal: No Nausea, No Vomiting, No Abdominal Pain, No Diarrhea, No Constipation, No Melena, No Hematochezia, No Other Genitourinary: No Dysuria, No Frequency, No Incontinence, No Hematuria, No Retention, No Other Musculoskeletal: No other, No neck pain, No shoulder pain, No arm pain, No back pain, No hand pain, No leg pain, No foot pain Objective Vitals Vital Signs Date Time Temp Pulse Resp B/P (MAP) Pulse Ox O2 Delivery O2 Flow Rate FiO2 10/24/24 16:50 98.3 60 18 141/88 (105) 99 98.3 10/24/24 08:00 Room Air* 0 21 Intake/Output Intake and Output 10/24/24 07:00 Intake Total 1770 ml Balance 1770 ml Intake Oral 1570 ml IV Total 200 ml # Voids 9 Exam HEENT pupils are reactive Neck is supple CV is S1-S2 regular rate and rhythm Respiratory viral clear GI positive bowel sound Extremity no edema 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 Medications Current Medications Medications Dose Ordered Sig/Merly Route Start Time Stop Time Status Last Admin Dose Admin Acetaminophen/ Hydrocodone Bitart 1 tab Q4HP PRN PO 10/22/24 16:45 10/23/24 02:08 1 TAB Ondansetron HCl 4 mg Q4HP PRN IV 10/22/24 16:45 Acetaminophen 650 mg Q6HP PRN PO 10/22/24 16:45 Morphine Sulfate 2 mg Q4HPRN PRN IV 10/22/24 16:45 10/22/24 19:30 2 MG Nitroglycerin 0.4 mg Q5MINP PRN SL 10/22/24 16:45 Morphine Sulfate 2 mg Q30M PRN IV 10/22/24 16:45 10/23/24 20:42 2 MG Amlodipine Besylate 5 mg DAILY PO 10/23/24 10:00 10/24/24 09:13 5 MG Aspirin 81 mg DAILY PO 10/23/24 10:00 10/24/24 09:14 81 MG Clopidogrel Bisulfate 75 mg DAILY PO 10/23/24 10:00 10/24/24 09:12 75 MG Ranolazine 500 mg BID PO 10/22/24 22:00 10/24/24 09:13 500 MG Atorvastatin Calcium 10 mg HS PO 10/22/24 22:00 10/23/24 22:47 10 MG Metoprolol Succinate 25 mg DAILY PO 10/23/24 10:00 10/24/24 09:13 25 MG Dronedarone 400 mg BIDWM PO 10/23/24 18:00 10/24/24 17:56 400 MG Enoxaparin Sodium 60 mg Q12HR SC 10/23/24 22:00 Docusate Sodium 100 mg BIDPRN PRN PO 10/24/24 17:00 10/24/24 18:07 100 MG Polyethylene Glycol 17 gm DAILYPRN PRN PO 10/24/24 17:00 10/24/24 17:54 17 GM Laboratory Results Laboratory Tests 10/23/24 05:26 Urinalysis Test 10/23/24 12:05 Urine Color Light-yellow (Yellow) Urine Clarity Clear (Clear) Urine pH 6.5 (5.0-9.0) Urine Specific [place] 1.007 (1.001-1.035) Urine Protein 1+ (Negative) H Urine Ketones Negative (Negative) Urine Blood Negative /uL (Negative) Urine Nitrite Negative (Negative) Urine Bilirubin Negative (Negative) Urine Urobilinogen Normal mg/dL (Negative) Urine Leukocyte Esterase 1+ /uL (Negative) Urine RBC 1 /hpf (0 - 4) Urine Microscopic WBC 7 /HPF (0-5) H Urine Squamous Epithelial Cells Few /hpf (<5) Urine Bacteria None seen /hpf (None Seen) Urine Glucose Normal mg/dL (Normal) Assessment/Plan Assessment/Plan 64-year-old female with a known history of coronary artery disease with a occlusion of the RCA can not be started because of small branches, hypertension, dyslipidemia, paroxysmal AFib over initiation with the hospital with a chest pain palpitations found to have 1. Paroxysmal AFib 2. Hypertension 3. Dyslipidemia 4. Coronary artery disease -discontinue flecainide, continue Multaq follow up Cardiology recommended Plan discussed with: Patient My Orders Orders - SUSANNE LYNCH MD Procedure Category Date Status Time Docusate Sodium PHA 10/24/24 In Process Capsule (Colace 17:00 Polyethylene Glycol PHA 10/24/24 In Process 17g Powder (Miralax 17:00 Date of Service: Oct 24, 2024 Billing Provider: SUSANNE LYNCH MD Common Visit Codes: [id number] INP/OBS CARE(MOD) SUSANNE LYNCH MD Oct 24, 2024 18:57
[2024-10-25] VITALS (7 sets, daily range): BP systolic 111–147; BP diastolic 50–89; PULSE 45–60; RESP 14–17; TEMP 97.6–98.9; O2SAT 96–100
[2024-10-25] MEDS: MELATONIN 5 MG TAB PO ONE (01:12)
--- NOTE | 2024-10-25 07:43 | ECG ---
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
--- NOTE | 2024-10-25 07:44 | ECG ---
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
--- NOTE | 2024-10-25 07:44 | ECG ---
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
--- NOTE | 2024-10-25 07:44 | ECG ---
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
[2024-10-25] MEDS ORDERED: METOPROLOL SUCCINATE XL 50 MG TAB PO SCH ×2 (10:38→22:00)
[2024-10-25] MEDS: ACETAMINOPHEN 325 MG TAB PO PRN (10:50)
[2024-10-25] MEDS ORDERED: AML5T PO (17:04)
[2024-10-25] MEDS ORDERED: ATOR10TA PO (17:04)
[2024-10-25] MEDS ORDERED: METO25TA36 PO (17:05)
[2024-10-25] MEDS ORDERED: SERT100T PO (17:05)
[2024-10-25] MEDS ORDERED: DRON400T PO (17:05)
[2024-10-25] MEDS ORDERED: ASPI1TAB20 PO (17:05)
[2024-10-25] MEDS ORDERED: CLOP75TA28 PO (17:05)
[2024-10-25] MEDS ORDERED: METOPROLOL TARTRATE 25 MG TAB PO SCH (22:00)
== END 2024-10-25 16:51 | disposition home or self-care (01) | DRG 201 ==
LOC: EDUNIT# 10:57 → EDBD 10:57 → ER 10:57 → OVERFLOW 16:36 → TELE-WESTW 18:01
PROVIDERS: ADMIT Internal Medicine; ATTEND Internal Medicine
DX: I48.0 Paroxysmal atrial fibrillation (principal); E78.5 Hyperlipidemia, unspecified; I25.118 Atherosclerotic heart disease of native coronary artery with other forms of angina pectoris; I10 Essential (primary) hypertension; Z82.3 Family history of stroke; Z82.49 Family history of ischemic heart disease and other diseases of the circulatory system; Z83.3 Family history of diabetes mellitus; Z87.891 Personal history of nicotine dependence; Z88.6 Allergy status to analgesic agent; Z79.82 Long term (current) use of aspirin; Z79.899 Other long term (current) drug therapy; F12.90 Cannabis use, unspecified, uncomplicated
CPT/HCPCS: 36415; 71045; 80048; 80053; 80061; 80307; 81001; 83735; 83880; 84443; 84484; 85025; 93005; 93306; 96374; 96375; G0378; J2405; J3480

== ENCOUNTER 2025-02-14 08:02 | Inpatient (IN) | payer MEDICAID ==
[2025-02-12 11:34] LABS: Hematocrit 48.0 % (36.0-46.0); Hemoglobin 16.4 g/dL (12.2-16.2); Mean Corpuscular Hemoglobin 32.7 pg (28.0-32.0); Mean Corpuscular Volume 95.5 fL (80.0-100.0); Nucleated Red Blood Cells % 0.2 %
[2025-02-12 11:50] LABS: Alanine Aminotransferase 14 U/L (7-40); Albumin 4.8 g/dL (3.2-4.8); Alkaline Phosphatase 88 U/L (46-116); Anion Gap 9 (5-15); BUN/Creatinine Ratio 12.8 (10.0-20.0); Bilirubin, Total 0.4 mg/dL (0.2-1.0); Blood Urea Nitrogen 14 mg/dL (9-23); Calcium 9.3 mg/dL (8.7-10.4); Carbon Dioxide 25 mmol/L (20-31); Potassium 3.6 mmol/L (3.5-5.1); Sodium 144 mmol/L (136-145); Total Protein 7.7 g/dL (5.7-8.2)
[2025-02-12 11:51] LABS: INR 1.0 (0.9-1.15); Partial Thromboplastin Time 29.4 SEC (24.5-34.5); Prothrombin Time 10.6 sec (9.3-11.8)
[2025-02-12 11:58] LABS: Chloride 110 mmol/L (98-107); Glucose 111 mg/dL (74-106)
[2025-02-14] VITALS (13 sets, daily range): BP systolic 67–136; BP diastolic 44–98; PULSE 50–121; RESP 12–18; TEMP 97.7–98.4; O2SAT 92–98
[~2025-02-14] VITALS: Ht 165.1 cm; Wt 57.0 kg
[~2025-02-14 08:02] MED LIST changes: -DICL50TA2 PO; +FLEC1TAB PO; +FLUT1SPR21; +LOSA-533 PO; +SERT100T PO
[2025-02-14] MEDS: VANCOMYCIN HCL 1000 MG VL ONE (09:25)
[2025-02-14] MEDS: IODIXANOL 320MG/ML 100ML BTL IV ONE (09:26)
[2025-02-14] MEDS: VANCOMYCIN 1GM/250ML KIT 250 ML IV ONE (09:26)
[2025-02-14] MEDS: LIDOCAINE 2%HCL (LOCAL ANESTH.) INJ 20ML MDV ONE (09:26)
[2025-02-14] MEDS: fentaNYL CITRATE 100 MCG/2 ML VL ONE (09:26)
[2025-02-14] MEDS: MIDAZOLAM HCL 2MG/2ML 2ml VIAL (1mg/ml) ONE ×2 (09:26→10:04)
[2025-02-14] MEDS: VERAPAMIL 2.5MG/ML INJ 2ML VIAL IV ONE (10:41)
--- NOTE | 2025-02-14 11:10 | DVHOP2 ---
Operative Report - 2 Report Details Date: 02/14/25 Preop Diagnosis: Tachy-brittny syndrome. Atrial flutter. 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 Atrial flutter. Surgeon: Katina Kemp MD Anesthesiologist: Conscious sedation Anesthesia: Mac, Local Consent: The patient was informed of the risks and benefits of the procedure. These include but are not limited to complications of anesthesia, postoperative infection, incomplete relief of symptoms, recurrence of symptoms, damage to blood vessels, nerves and tendons, deep venous thrombosis, pulmonary embolism and possible need for repeat surgery in the future. Complications: No complications. Findings: Persistent left superior vena cava. Atrial flutter. Indications for Surgery: Tachy-brittny syndrome. Atrial flutter. Significant symptomatic bradycardia. Name of Procedure Performed Permanent pacemaker implantation. Procedure Details Procedure Details: Prior local anesthesia with 2% lidocaine to the left pectoral area and full informed consent obtained the patient was prepped and draped in the usual fas hion followed by an incision over the left pectoral area with blunt dissection and electrocautery. A limited venogram was performed of the left subclavian. We obtained access to the left subclavian vein after dissection planes with the electrocautery and blunt dissection. We then packed the pocket with an antibiotic filled Ray-Bette. We subsequently placed peel-away sheaths the left subclavian vein. J curved guidewires was used to place active fixation electrodes. We noticed that we were in a right superior vena cava emptying into the coronary sinus. We maneuvered leads into the right ventricle from the coronary sinus originating from the persistent left superior vena cava. Adequate capture and sensitivity thresholds were obtained. Active fixation leads were placed into the RV base adjacent to the apex and into the right atrial appendage. We sutured of the leads with 0 Ethibond. We then connected the pacemaker generator to the leads after adequate capture and sensitivity thresholds were obtained. Under fluoroscopic guidance we obtained good positioning. The pocket was then flushed with antibiotic solution in the Ray-Bette sponge was removed and the pocket was closed Vicryl 3.0 and with Monocryl. 4.0. Patient tolerated the procedure well there were no complications. Impression: Successful placement of permanent pacemaker into right ventricle and right atrium. Associated findings of persistent left superior vena cava noted. Tachy-brittny syndrome with underlying atrial flutter. Recommendations chest x-ray will be obtained. We will follow up within 2-3 weeks. Condition Good Disposition Home Date of Service: Feb 14, 2025 Billing Provider: KATINA KEMP Sr., MD Cardiology Common Codes: [id number] INP/OBS CARE (High) Card. Pacer Implants/Gen [id number] DUAL LEAD PACER KATINA KEMP Sr., MD Feb 14, 2025 11:09
[2025-02-14] MEDS: SODIUM CHLORIDE 0.9% 500 ML IV ONE (11:19)
[2025-02-14] MEDS: ONDANSETRON HCL 4 MG/2 ML VIAL ONE (11:35)
--- NOTE | 2025-02-14 11:54 | DVH ---
CHEST RADIOGRAPH Indication: S/P PACEMAKER Technique: XY CHEST PORTABLE Comparison: None FINDINGS: There is a left chest dual lead cardiac pacing device with the catheters/ leads coursing t hrough presumed left-sided SVC. The cardiac silhouette is unremarkable. The lungs demonstrate no pulmonary airspace consolidation. Th e pulmonary vasculature is unremarkable. There is no pleural effusion. There is no pneumothorax. IMPRESSION: Left chest dual lead cardiac pacing device with the catheter/leads coursing through presumed left-keena ed correlate clinically. CT of the chest without contrast can be obtained confirm that this is truly a left-sided SVC and not a arterial puncture. No pulmonary airspace consolidation.
[2025-02-14] MEDS ORDERED: ACETAMINOPHEN 325 MG TAB PO PRN (14:00)
[2025-02-14] MEDS: ONDANSETRON HCL 4 MG/2 ML VIAL IV ONE (15:45)
[2025-02-14] MEDS: DIGOXIN 0.125 MG TAB PO ONE (18:21)
[2025-02-14] MEDS: METOPROLOL TARTRATE 1MG/1ML-5ML VIAL IV ONE (18:23)
[2025-02-14] MEDS: HYDROmorphone HCL 2 MG/ML VL/or syr IV PRN (18:24)
[2025-02-14] MEDS: RANOLAZINE ER 500 MG TAB PO SCH (22:00)
[2025-02-14] MEDS: FLECAINIDE ACETATE 50 MG TAB PO SCH (22:00)
[2025-02-14] MEDS: ATORVASTATIN 20 MG TAB PO SCH (22:00)
[2025-02-15] VITALS (9 sets, daily range): BP systolic 114–142; BP diastolic 73–102; PULSE 64–121; RESP 14–18; TEMP 97.5–99.6; O2SAT 18–98
[2025-02-15] MEDS: DOCUSATE SOD 100 MG CAP PO ONE (01:37)
[2025-02-15] MEDS: MELATONIN 5 MG TAB PO ONE (01:37)
--- NOTE | 2025-02-15 05:53 | DVH ---
CHEST RADIOGRAPH Indication: Post pacemaker Technique: Single frontal view of the chest was obtained Comparison: XY CHEST PORTABLE on DOS: 02/14/25. FINDINGS: Lines and Tubes: Dual-chamber pacemaker with right atrial and ventricular leads. Lungs: No focal consolidation. Pleura: No effusion. No pneumothorax. Cardiomediastinal contours: Unremarkable Bones: No acute osseous abnormality. IMPRESSION: 1. No acute cardiopulmonary disease.
--- NOTE | 2025-02-15 07:28 | ECG ---
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
--- NOTE | 2025-02-15 07:31 | ECG ---
[facility] Test Date: 2025-02-14 Test Time: 16:37:07 Pat Name: SEGUNDO PANDEY Department: Respiratoy Room: 0249T B Gender: F Hand Grinder: JUAREZ : 1960 Requested By: KATINA KEMP Order Number: [id number] Reading MD: Katina Kemp Measurements Intervals [place] Rate: 121 P: 0 [place]: 0 QRS: -69 QRSD: 155 T: 110 QT: 382 QTc: 542 Interpretive Statements Atrial flutter with predominant 2:1 AV block Ventricular bigeminy Left bundle branch block Electronically Signed On 02-20-2025 12:50:13 PST by Katina Kemp Please click the below link to view image of tracing.
--- NOTE | 2025-02-15 07:31 | ECG ---
[facility] Test Date: 2025-02-14 Test Time: 16:39:27 Pat Name: SEGUNDO PANDEY Department: Respiratoy Room: 0249T B Gender: F Hydrographic Engineer: JUAREZ : 1960 Requested By: KATINA KEMP Order Number: [id number] Reading MD: Katina Kemp Measurements Intervals [place] Rate: 131 P: 0 [place]: 0 QRS: -70 QRSD: 154 T: 109 QT: 380 QTc: 562 Interpretive Statements Atrial fibrillation Left bundle branch block Electronically Signed On 02-20-2025 12:50:17 PST by Katina Kemp Please click the below link to view image of tracing.
[2025-02-15] MEDS: SERTRALINE HCL 50 MG TAB PO SCH (08:56)
[2025-02-15] MEDS: LOSARTAN POTASSIUM 25 MG TAB PO SCH (08:58)
[2025-02-15] MEDS: METOPROLOL SUCCINATE XL 50 MG TAB PO SCH (08:58)
[2025-02-15] MEDS: DIGOXIN 0.125 MG TAB PO SCH (09:00)
[2025-02-15] MEDS: SODIUM CHLORIDE 0.9% 500 ML IV ONE (11:30)
[2025-02-15] MEDS: POLYETHYLENE GLYCOL 17 GM PWDR PO PRN (13:40)
[2025-02-15] MEDS: METOPROLOL SUCCINATE XL 50 MG TAB PO ONE (13:41)
[2025-02-15] MEDS ORDERED: dilTIAZem 25 MG/5 ML VIAL IV ONE (17:15)
[2025-02-15] MEDS ORDERED: MELATONIN 5 MG TAB PO ONE (22:00)
[2025-02-16] VITALS (8 sets, daily range): BP systolic 130–143; BP diastolic 80–95; PULSE 69–94; RESP 16–18; TEMP 97.9–98.6; O2SAT 94–97
[2025-02-16] MEDS: DOCUSATE SOD 100 MG CAP PO ONE (02:29)
[2025-02-16 07:04] LABS: Hematocrit 49.3 % (36.0-46.0); Hemoglobin 16.6 g/dL (12.2-16.2); Mean Corpuscular Hemoglobin 31.6 pg (28.0-32.0); Mean Corpuscular Volume 93.7 fL (80.0-100.0); Nucleated Red Blood Cells % 0.1 %
[2025-02-16 07:19] LABS: Anion Gap 7 (5-15); Calcium 9.5 mg/dL (8.7-10.4); Carbon Dioxide 25 mmol/L (20-31); Potassium 3.6 mmol/L (3.5-5.1); Sodium 144 mmol/L (136-145)
[2025-02-16 07:24] LABS: Glucose 99 mg/dL (74-106)
[2025-02-16 07:25] LABS: BUN/Creatinine Ratio 24.2 (10.0-20.0); Blood Urea Nitrogen 23 mg/dL (9-23); Magnesium 1.9 mg/dL (1.6-2.6)
[2025-02-16 07:38] LABS: Chloride 112 mmol/L (98-107)
--- NOTE | 2025-02-16 08:37 | ECG ---
[facility] Test Date: 2025-02-15 Test Time: 09:43:34 Pat Name: SEGUNDO PANDEY Department: Room: 0249T B Gender: F Rn Gastroenterology: MISTI : 1960 Requested By: KATINA KEMP Order Number: [id number] Reading MD: Katina Kemp Measurements Intervals [place] Rate: 100 P: 51 [place]: 242 QRS: -67 QRSD: 146 T: 110 QT: 380 QTc: 491 Interpretive Statements Sinus tachycardia with irregular rate Prolonged MI interval Probable left atrial enlargement Left bundle branch block Electronically Signed On 02-20-2025 12:51:09 PST by Katina Kemp Please click the below link to view image of tracing.
[2025-02-16] MEDS: CLOPIDOGREL BISULFATE 75 MG TAB PO SCH (09:16)
--- NOTE | 2025-02-16 11:08 | DVHHP2 ---
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 Denies room spinning, N/V, no urinary or bowel syndrome, no chest pain, no surgical site pain. Reported quiting smoking 2018, drinking 2022 and occasional marijuana use, denies other drugs. lives with who had CVA. ROS per HPI physical exam aox4 PERRLA clean surgical site, no fluctuance, appropriately tender clear breath sounds s1 s2 tachycardic abdomen soft no LE edema labs, ekg imaging reviewed cr 1.0 hb 16 inr 1 cxr dual chamber PPM, leads inplace, no pneumothorax assessment and plan tachy brittny syndrome aflutter s/p PPM ckd 3a CAD w/ CARDIOVASCULAR RADIOLOGIC TECHNOLOGIST in RCA HTN HLD MDD? chronic diastolic HF HFpEF 65% not in exacerbation c/w Toprol, digoxin, flecanide PT eval iv bolus pain management, avoid beers meds c/w amlodipine, losartan, Zoloft, lipitor resume asa Plavix tomorrow not on AC diet cardiac dvt ppx AC tomorrow full code Plan discussed with: Patient Date of Service: Feb 15, 2025 Billing Provider: ANGIE ALMAGUER MD Common Visit Codes: [id number] INP/OBS CARE (HIGH) ANGIE ALMAGUER MD Feb 15, 2025 11:27
[2025-02-16] MEDS: METOPROLOL SUCCINATE XL 50 MG TAB PO SCH (12:19)
--- NOTE | 2025-02-16 14:27 | DVHPN2 ---
Progress Note Date Seen: Feb 16, 2025 Medical Necessity Reason Pt with a Central, PICC or Fol: No Subjective Patient reports: Other (Intermittent left chest pain. No shortness of breaths, headache, fever chills.) Changes from previous H/P or p: No Changes Objective vital signs Vital Sign Date Time Temp Pulse Resp B/P (MAP) Pulse Ox O2 Delivery O2 Flow Rate FiO2 02/16/25 13:07 72 17 141/86 02/16/25 13:00 98.4 96 98.4 02/16/25 08:30 Room Air* 0 21 Total Intake and Output 02/15/25 02/15/25 02/16/25 15:00 23:00 07:00 Intake Total 475 ml 1200 ml Balance 475 ml 1200 ml medications Current Medications Medications Dose Ordered Sig/Merly Route Start Time Stop Time Status Last Admin Dose Admin Amlodipine Besylate 5 mg DAILY PO 02/15/25 10:00 02/15/25 08:59 5 MG Atorvastatin Calcium 10 mg HS PO 02/14/25 22:00 02/15/25 21:23 10 MG Flecainide Acetate 50 mg Q12HR PO 02/14/25 22:00 02/16/25 12:20 50 MG Losartan Potassium 25 mg DAILY PO 02/15/25 10:00 02/16/25 12:19 25 MG Sertraline HCl 100 mg DAILY PO 02/15/25 10:00 02/16/25 09:16 100 MG Acetaminophen 650 mg Q6HP PRN PO 02/14/25 14:00 Hold Ranolazine 500 mg BID PO 02/14/25 22:00 02/16/25 12:20 500 MG Tramadol HCl 50 mg Q8HPRN PRN PO 02/14/25 17:15 02/16/25 09:17 50 MG Hydromorphone HCl 0.5 mg Q12HP PRN IV 02/14/25 17:15 02/16/25 13:07 0.5 MG Digoxin 0.5 mg DAILY PO 02/15/25 10:00 02/16/25 12:20 0.5 MG Metoprolol Succinate 50 mg DAILY PO 02/16/25 10:00 02/16/25 12:19 50 MG Polyethylene Glycol 17 gm DAILYPRN PRN PO 02/15/25 13:30 02/16/25 09:17 17 GM Aspirin 81 mg DAILY PO 02/16/25 10:00 02/16/25 09:53 81 MG Clopidogrel Bisulfate 75 mg DAILY PO 02/16/25 10:00 02/16/25 09:16 75 MG Examination: GENERAL:Normal, HEENT:Normal, NECK:Normal, LUNGS:Normal, CVS:Normal, ABDOMEN:Normal, MSK:Normal, SKIN:Abnormal (Left permanent pacemaker surgical site is clean and dry. No signs of any infection), NEURO:Normal laboratory and microbiology Laboratory Tests 02/16/25 06:12 Test 02/16/25 06:12 Range/Units Serum Glucose 99 74-106 mg/dL Labs and/or images reviewed: Labs reviewed by me, Image(s) reviewed by me Problem List/Assessment/Plan Problem List/Assessment/Plan tachy brittny syndrome aflutter s/p PPM ckd 3a CAD w/ POST PARTUM NURSE in RCA HTN HLD MDD? chronic diastolic HF HFpEF 65% not in exacerbation c/w Toprol, digoxin, flecanide PT eval iv bolus pain management, avoid beers meds hold amlodipine due to hypotension Resume losartan, Zoloft, lipitor, metoprolol resume asa Plavix tomorrow Starting Eliquis 5 mg b.i.d. diet cardiac dvt ppx starting Eliquis Plan discussed with: Patient Date of Service: Feb 16, 2025 Billing Provider: NIKKI THURMAN MD Common Visit Codes: [id number] SAME DATE (HIGH) NIKKI THURMAN MD Feb 16, 2025 14:27
[2025-02-16] MEDS: MELATONIN 5 MG TAB PO ONE (21:56)
[2025-02-16] MEDS: APIXABAN 5 MG TAB PO SCH (21:56)
[2025-02-17] VITALS (8 sets, daily range): BP systolic 102–160; BP diastolic 69–96; PULSE 67–72; RESP 17–18; TEMP 97.9–98.7; O2SAT 96–100
[2025-02-17 05:49] LABS: Hematocrit 47.6 % (36.0-46.0); Hemoglobin 16.1 g/dL (12.2-16.2); Mean Corpuscular Hemoglobin 31.8 pg (28.0-32.0); Mean Corpuscular Volume 93.9 fL (80.0-100.0); Nucleated Red Blood Cells % 0.1 %
[2025-02-17 06:04] LABS: Alanine Aminotransferase 14 U/L (7-40); Albumin 4.1 g/dL (3.2-4.8); Alkaline Phosphatase 77 U/L (46-116); Anion Gap 8 (5-15); BUN/Creatinine Ratio 19.3 (10.0-20.0); Bilirubin, Total 0.4 mg/dL (0.2-1.0); Blood Urea Nitrogen 21 mg/dL (9-23); Calcium 9.1 mg/dL (8.7-10.4); Carbon Dioxide 27 mmol/L (20-31); Glucose 98 mg/dL (74-106); Potassium 3.6 mmol/L (3.5-5.1); Sodium 145 mmol/L (136-145); Total Protein 6.8 g/dL (5.7-8.2)
[2025-02-17 06:08] LABS: Chloride 110 mmol/L (98-107)
[2025-02-17] MEDS: ONDANSETRON ODT 4 MG TAB PO ONE (11:10)
--- NOTE | 2025-02-17 15:00 | DVHPN2 ---
Progress Note Date Seen: Feb 17, 2025 Medical Necessity Reason Pt with a Central, PICC or Fol: No Subjective Patient reports: Other (Left-sided chest has pain and tender to palpate. No fever chills) Objective vital signs Vital Sign Date Time Temp Pulse Resp B/P (MAP) Pulse Ox O2 Delivery O2 Flow Rate FiO2 02/17/25 10:40 71 16 134/84 02/17/25 09:00 98.0 98 98.0 02/17/25 08:00 Room Air* 0 21 Total Intake and Output 02/16/25 02/16/25 02/17/25 15:00 23:00 07:00 Intake Total 2750 ml 640 ml Balance 2750 ml 640 ml medications Current Medications Medications Dose Ordered Sig/Merly Route Start Time Stop Time Status Last Admin Dose Admin Amlodipine Besylate 5 mg DAILY PO 02/15/25 10:00 02/15/25 08:59 5 MG Atorvastatin Calcium 10 mg HS PO 02/14/25 22:00 02/16/25 21:56 10 MG Flecainide Acetate 50 mg Q12HR PO 02/14/25 22:00 02/17/25 09:16 50 MG Losartan Potassium 25 mg DAILY PO 02/15/25 10:00 02/17/25 09:15 25 MG Sertraline HCl 100 mg DAILY PO 02/15/25 10:00 02/17/25 09:30 100 MG Acetaminophen 650 mg Q6HP PRN PO 02/14/25 14:00 Hold Ranolazine 500 mg BID PO 02/14/25 22:00 02/17/25 09:15 500 MG Tramadol HCl 50 mg Q8HPRN PRN PO 02/14/25 17:15 02/16/25 09:17 50 MG Hydromorphone HCl 0.5 mg Q12HP PRN IV 02/14/25 17:15 02/17/25 09:12 0.5 MG Digoxin 0.5 mg DAILY PO 02/15/25 10:00 02/17/25 09:15 0.5 MG Metoprolol Succinate 50 mg DAILY PO 02/16/25 10:00 02/17/25 09:15 50 MG Polyethylene Glycol 17 gm DAILYPRN PRN PO 02/15/25 13:30 02/16/25 09:17 17 GM Aspirin 81 mg DAILY PO 02/16/25 10:00 02/17/25 09:16 81 MG Clopidogrel Bisulfate 75 mg DAILY PO 02/16/25 10:00 02/17/25 09:16 75 MG Apixaban 5 mg BID PO 02/16/25 22:00 02/17/25 09:15 5 MG Examination: GENERAL:Normal, HEENT:Normal, NECK:Normal, LUNGS:Normal, CVS:Normal, ABDOMEN:Normal, MSK:Abnormal (Pain with tender to palpate at surgical site of left upper chest pacemaker site), SKIN:Abnormal (Ecchymosis at the left upper chest pacemaker site. No gross bleeding.) laboratory and microbiology Laboratory Tests 02/17/25 05:27 Test 02/17/25 05:27 Range/Units Serum Glucose 98 74-106 mg/dL Labs and/or images reviewed: Labs reviewed by me, Image(s) reviewed by me Problem List/Assessment/Plan Problem List/Assessment/Plan tachy brittny syndrome aflutter s/p PPM ckd 3a CAD w/ MACHINE SET UP in RCA HTN HLD MDD? chronic diastolic HF HFpEF 65% not in exacerbation c/w Toprol, digoxin, flecanide PT eval pain management, avoid beers meds on amlodipine due to hypotension Resume losartan, Zoloft, lipitor, metoprolol on asa Plavix on Eliquis 5 mg b.i.d. plan to dc if pain is controlled diet cardiac dvt ppx starting Eliquis Plan discussed with: Patient Date of Service: Feb 17, 2025 Billing Provider: NIKKI THURMAN MD Common Visit Codes: [id number] SAME DATE (MOD) NIKKI THURMAN MD Feb 17, 2025 15:00
[2025-02-18] VITALS (9 sets, daily range): BP systolic 121–152; BP diastolic 86–96; PULSE 70; RESP 15–21; TEMP 97.6–98.5; O2SAT 94–98
[2025-02-18 06:22] LABS: Hematocrit 45.6 % (36.0-46.0); Hemoglobin 15.6 g/dL (12.2-16.2); Mean Corpuscular Hemoglobin 31.9 pg (28.0-32.0); Mean Corpuscular Volume 93.3 fL (80.0-100.0); Nucleated Red Blood Cells % 0.0 %
[2025-02-18 06:37] LABS: Alanine Aminotransferase 13 U/L (7-40); Alkaline Phosphatase 72 U/L (46-116); Anion Gap 9 (5-15); BUN/Creatinine Ratio 31.2 (10.0-20.0); Blood Urea Nitrogen 29 mg/dL (9-23); Calcium 9.2 mg/dL (8.7-10.4); Carbon Dioxide 26 mmol/L (20-31); Chloride 109 mmol/L (98-107); Glucose 94 mg/dL (74-106); Potassium 3.6 mmol/L (3.5-5.1); Sodium 144 mmol/L (136-145); Total Protein 6.4 g/dL (5.7-8.2)
[2025-02-18 06:38] LABS: Albumin 4.0 g/dL (3.2-4.8); Bilirubin, Total 0.4 mg/dL (0.2-1.0)
--- NOTE | 2025-02-18 14:10 | DVHPN2 ---
Progress Note Date Seen: Feb 18, 2025 Medical Necessity Reason Pt with a Central, PICC or Fol: No Subjective Patient reports: Feels worse (States she feels unsteady and has persistent pain in the left upper chest. No fever or chills) Objective vital signs Vital Sign Date Time Temp Pulse Resp B/P (MAP) Pulse Ox O2 Delivery O2 Flow Rate FiO2 02/18/25 13:00 97.9 70 21 121/86 (98) 94 97.9 02/18/25 08:25 Room Air* 0 21 Total Intake and Output 02/17/25 02/17/25 02/18/25 15:00 23:00 07:00 Intake Total 950 ml 200 ml Balance 950 ml 200 ml medications Current Medications Medications Dose Ordered Sig/Merly Route Start Time Stop Time Status Last Admin Dose Admin Amlodipine Besylate 5 mg DAILY PO 02/15/25 10:00 02/15/25 08:59 5 MG Atorvastatin Calcium 10 mg HS PO 02/14/25 22:00 02/17/25 21:26 10 MG Flecainide Acetate 50 mg Q12HR PO 02/14/25 22:00 02/18/25 09:52 50 MG Losartan Potassium 25 mg DAILY PO 02/15/25 10:00 02/18/25 10:12 25 MG Sertraline HCl 100 mg DAILY PO 02/15/25 10:00 02/18/25 09:52 100 MG Acetaminophen 650 mg Q6HP PRN PO 02/14/25 14:00 Hold Ranolazine 500 mg BID PO 02/14/25 22:00 02/18/25 09:52 500 MG Tramadol HCl 50 mg Q8HPRN PRN PO 02/14/25 17:15 02/17/25 21:35 50 MG Hydromorphone HCl 0.5 mg Q12HP PRN IV 02/14/25 17:15 02/18/25 10:12 0.5 MG Digoxin 0.5 mg DAILY PO 02/15/25 10:00 02/18/25 09:53 0.5 MG Metoprolol Succinate 50 mg DAILY PO 02/16/25 10:00 02/18/25 10:12 50 MG Polyethylene Glycol 17 gm DAILYPRN PRN PO 02/15/25 13:30 02/17/25 21:26 17 GM Aspirin 81 mg DAILY PO 02/16/25 10:00 11/2/25 09:52 81 MG Clopidogrel Bisulfate 75 mg DAILY PO 02/16/25 10:00 02/18/25 09:52 75 MG Apixaban 5 mg BID PO 02/16/25 22:00 02/18/25 09:52 5 MG Examination: GENERAL:Normal, HEENT:Normal, NECK:Normal, LUNGS:Normal, CVS:Normal, ABDOMEN:Normal, MSK:Abnormal (Left upper chest permanent pacemaker site tender to palpate.), SKIN:Normal, NEURO:Normal laboratory and microbiology Laboratory Tests 02/18/25 05:21 Test 02/18/25 05:21 Range/Units Serum Glucose 94 74-106 mg/dL Problem List/Assessment/Plan Problem List/Assessment/Plan tachy brittny syndrome aflutter s/p PPM ckd 3a CAD w/ HEREDITARY CANCER PROGRAM COORDINATOR in RCA HTN HLD MDD? chronic diastolic HF HFpEF 65% not in exacerbation c/w Toprol, digoxin, flecanide PT eval pain management, avoid beers meds on amlodipine due to hypotension Resume losartan, Zoloft, lipitor, metoprolol on asa Plavix on Eliquis 5 mg b.i.d. Pain remain intermittent and frequent Social regular consult for DME per PT recommendations Discharge patient tomorrow if pain NSTEMI has said diet cardiac dvt ppx starting Eliquis Plan discussed with: Patient My Orders My Orders Orders - NIKKI THURMAN MD Procedure Category Date Status Time * Associate Quality Engineer CONS 02/18/25 Transmitted Consult Dietary Evaluation Review Comments: 1) Change 2g Na to cardiac det 2) Encourage optimal PO intake 3) Follow-up with cardiology and nephrology 4) Continue to monitor I&O, labs, and skin integrity Expected Outcomes/Goals: 1) appetite and labs to improve 2) f/u in 3-5 days Date of Service: Feb 18, 2025 Billing Provider: NIKKI THURMAN MD Common Visit Codes: [id number]/OBS SAME DATE (HIGH) NIKKI THURMAN MD Feb 18, 2025 14:10
[2025-02-19 01:00] VITALS: BP 130/85; PULSE 70; RESP 20; TEMP 98.5; O2SAT 95
[2025-02-19 05:00] VITALS: BP 135/91; PULSE 70; RESP 20; TEMP 97.5; O2SAT 95
[2025-02-19 06:57] LABS: Hematocrit 43.8 % (36.0-46.0); Hemoglobin 15.0 g/dL (12.2-16.2); Mean Corpuscular Hemoglobin 32.0 pg (28.0-32.0); Mean Corpuscular Volume 93.5 fL (80.0-100.0); Nucleated Red Blood Cells % 0.0 %
[2025-02-19 07:20] LABS: Alanine Aminotransferase 13 U/L (7-40); Albumin 4.0 g/dL (3.2-4.8); Alkaline Phosphatase 69 U/L (46-116); Anion Gap 7 (5-15); BUN/Creatinine Ratio 21.4 (10.0-20.0); Calcium 9.1 mg/dL (8.7-10.4); Carbon Dioxide 30 mmol/L (20-31); Glucose 96 mg/dL (74-106); Potassium 4.6 mmol/L (3.5-5.1); Sodium 145 mmol/L (136-145); Total Protein 6.4 g/dL (5.7-8.2)
[2025-02-19 07:21] LABS: Bilirubin, Total 0.5 mg/dL (0.2-1.0); Blood Urea Nitrogen 24 mg/dL (9-23); Chloride 108 mmol/L (98-107)
[2025-02-19 08:00] VITALS: PULSE 70
[2025-02-19 08:47] VITALS: BP 136/86; PULSE 70; RESP 17; TEMP 97.6; O2SAT 95
--- NOTE | 2025-02-19 12:00 | DVHPN2 ---
Reviewed: Care Plan, H&P, Labs, Medications, Previous Orders, Radiology Changes from previous H/P or p: No Changes Objective Vitals Vital Signs Date Time Temp Pulse Resp B/P (MAP) Pulse Ox O2 Delivery O2 Flow Rate FiO2 02/19/25 10:14 70 02/19/25 10:13 136/86 02/19/25 08:47 97.6 17 95 97.6 02/19/25 08:00 Room Air* 0 21 Intake/Output Intake and Output 02/19/25 07:00 Intake Total 1050 ml Balance 1050 ml Intake Oral 1050 ml # Voids 1 Medications Current Medications Medications Dose Ordered Sig/Merly Route Start Time Stop Time Status Last Admin Dose Admin Amlodipine Besylate 5 mg DAILY PO 02/15/25 10:00 02/19/25 10:13 5 MG Atorvastatin Calcium 10 mg HS PO 02/14/25 22:00 02/18/25 21:45 10 MG Flecainide Acetate 50 mg Q12HR PO 02/14/25 22:00 02/19/25 10:14 50 MG Losartan Potassium 25 mg DAILY PO 02/15/25 10:00 02/19/25 10:12 25 MG Sertraline HCl 100 mg DAILY PO 02/15/25 10:00 02/19/25 10:13 100 MG Acetaminophen 650 mg Q6HP PRN PO 02/14/25 14:00 Hold Ranolazine 500 mg BID PO 02/14/25 22:00 02/19/25 10:10 500 MG Tramadol HCl 50 mg Q8HPRN PRN PO 02/14/25 17:15 02/19/25 10:11 50 MG Hydromorphone HCl 0.5 mg Q12HP PRN IV 02/14/25 17:15 02/18/25 10:12 0.5 MG Digoxin 0.5 mg DAILY PO 02/15/25 10:00 02/19/25 10:14 0.5 MG Metoprolol Succinate 50 mg DAILY PO 02/16/25 10:00 02/19/25 10:10 50 MG Polyethylene Glycol 17 gm DAILYPRN PRN PO 02/15/25 13:30 02/19/25 10:14 17 GM Aspirin 81 mg DAILY PO 02/16/25 10:00 02/19/25 10:11 81 MG Clopidogrel Bisulfate 75 mg DAILY PO 02/16/25 10:00 02/19/25 10:12 75 MG Apixaban 5 mg BID PO 02/16/25 22:00 02/19/25 10:12 5 MG Laboratory Results Laboratory Tests 02/19/25 06:21 Chemistry Test 02/19/25 06:21 Albumin 4.0 g/dL (3.2-4.8) Calcium Level 9.1 mg/dL (8.7-10.4) Total Protein 6.4 g/dL (5.7-8.2) LFT Test 02/19/25 06:21 Alanine Aminotransferase (ALT) 13 U/L (7-40) Alkaline Phosphatase 69 U/L (46-116) Aspartate Amino Transferase (AST) 17 U/L (13-40) Total Bilirubin 0.5 mg/dL (0.2-1.0) Labs and/or images reviewed: Labs reviewed by me, Image(s) reviewed by me Assessment/Plan Assessment/Plan Tachy brittny syndrome with atrial flutter status post permanent pacemaker implantation by Dr. Kemp ckd 3a CAD w/ CHEESE BLENDER in RCA HTN HLD MDD? chronic diastolic HF ejection fraction 65% HFpEF 65% not in exacerbation Resume losartan, Zoloft, lipitor, metoprolol, aspirin Plavix Eliquis Plan discussed with: Patient Date of Service: Feb 19, 2025 Billing Provider: LUI OBANDO MD Common Visit Codes: [id number] INP/OBS CARE(HIGH) LUI OBANDO MD Feb 19, 2025 12:00
[2025-02-19] MEDS ORDERED: APIX5TAB PO (12:04)
[2025-02-19] MEDS ORDERED: DIGO0.12 PO (12:04)
[2025-02-19] MEDS ORDERED: DOCU-94 PO (12:04)
[2025-02-19] MEDS ORDERED: CLOP75TA28 PO (12:04)
--- NOTE | 2025-02-19 12:09 | DVHDS2 ---
Discharge Summary Date of Admission Feb 14, 2025 at 12:12 Date of Discharge: Feb 19, 2025 Admitting Diagnosis Palpitations Wounds: Permanent pacemaker implantation Labs/Diagnostic Data: Laboratory Results Test 02/19/25 06:21 02/18/25 19:16 02/16/25 06:12 02/12/25 10:58 White Blood Count 10.0 10^3/uL (4.4-10.8) Red Blood Count 4.69 10^6/uL (4.0-5.20) Hemoglobin 15.0 g/dL (12.2-16.2) Hematocrit 43.8 % (36.0-46.0) Mean Corpuscular Volume 93.5 fL (80.0-100.0) Mean Corpuscular Hemoglobin 32.0 pg (28.0-32.0) Mean Corpuscular Hemoglobin Concent 34.2 g/dL (32.0-36.0) Red Cell Distribution Width 13.6 % (11.8-14.3) Platelet Count 187 10^3/uL (140-450) Mean Platelet Volume 8.5 fL (6.9-10.8) Neutrophils (%) (Auto) 76.6 % (37.0-80.0) Lymphocytes (%) (Auto) 16.2 % (10.0-50.0) Monocytes (%) (Auto) 5.1 % (0.0-12.0) Eosinophils (%) (Auto) 1.7 % (0.0-7.0) Basophils (%) (Auto) 0.4 % (0.0-2.0) Neutrophils # (Auto) 7.7 10 ^3/uL (1.6-8.6) Lymphocytes # (Auto) 1.6 10 ^3/uL (0.4-5.4) Monocytes # (Auto) 0.5 10 ^3/uL (0-1.3) Eosinophils # (Auto) 0.2 10 ^3/uL (0-0.8) Basophils # (Auto) 0 10 ^3/uL (0-0.2) Nucleated Red Blood Cells 0.0 % Sodium Level 145 mmol/L (136-145) Potassium Level 4.6 mmol/L (3.5-5.1) Chloride Level 108 mmol/L (98-107) Carbon Dioxide Level 30 mmol/L (20-31) Anion Gap 7 (5-15) Blood Urea Nitrogen 24 mg/dL (9-23) Creatinine 1.12 mg/dL (0.550-1.02) Glomerular Filtration Rate Calc 55 mL/min (>90) BUN/Creatinine Ratio 21.4 (10.0-20.0) Serum Glucose 96 mg/dL (74-106) Calcium Level 9.1 mg/dL (8.7-10.4) Total Bilirubin 0.5 mg/dL (0.2-1.0) Aspartate Amino Transferase (AST) 17 U/L (13-40) Alanine Aminotransferase (ALT) 13 U/L (7-40) Alkaline Phosphatase 69 U/L (46-116) Total Protein 6.4 g/dL (5.7-8.2) Albumin 4.0 g/dL (3.2-4.8) Troponin I High Sensitivity 64 ng/L (</=34) Phosphorus Level 2.8 mg/dL (2.4-5.1) Magnesium Level 1.9 mg/dL (1.6-2.6) Prothrombin Time 10.6 sec (9.3-11.8) Prothrombin Time INR 1.00 (0.9-1.15) Activated Partial Thromboplast Time 29.4 SEC (24.5-34.5) Other Laboratory Tests 02/19/25 06:21 Brief Hx & Hospital Course: 64-year-old female with a history of hypertension hypercholesterolemia diastolic congestive heart failure came in for tachycardia and palpitations found to have tachybrady syndrome with the atrial flutter underwent permanent pacemaker implantation by Dr. Kemp. Placed on aspirin Eliquis metoprolol succinate Plavix digoxin. At the time of discharge patient is asymptomatic and stable vital signs. Ejection fraction 65 percent she will follow up with Dr. Kemp. Prescriptions For new medications transmitted to [facility]. Consults/Reason for consult Cardiology Dr. Kemp Operations or Procedures Permanent pacemaker implantation Condition at Discharge: Fair Final Diagnosis/Problems List Tachy brittny syndrome with atrial flutter status post permanent pacemaker implantation by Dr. Kemp ckd 3a CAD w/ CATERERS HELPER in RCA HTN HLD MDD? chronic diastolic HF ejection fraction 65% HFpEF 65% not in exacerbation Resume losartan, Zoloft, lipitor, metoprolol, aspirin Plavix Eliquis Discharge Disposition: Home Discharge Instruct/Medications Diet: Cardiac 2g Na,low cholest Activity: Light activity Follow Up/Referral: Follow up with your primary Dr in one week Keep your appointment with the fittings finisher Dr. Kemp Resume all previous home medications Use new medications as prescribed Medications: Eliquis Plavix Colace Digoxin [facility] Scheduled Amlodipine Besylate (Norvasc Tablet), 1 TAB PO DAILY Apixaban Base (Eliquis), 5 MG PO BID Aspirin (Aspir-81), 1 TAB PO DAILY Atorvastatin Calcium (Lipitor), 1 TAB PO DAILY Clopidogrel Bisulfate (Plavix), 75 MG PO DAILY Clopidogrel Bisulfate (Plavix), 1 TAB PO DAILY Digoxin (Digoxin), 125 MCG PO DAILY Docusate Sodium (Colace), 1 CAP PO BID Flecainide Acetate (Flecainide Acetate), 50 MG PO BID, (Reported) Fluticasone Propionate (Nasal) (Allergy Nasal [place] 24 Ho), 50 MCG NA DAILY, (Reported) Losartan Potassium (Losartan Potassium), 25 MG PO DAILY, (Reported) Metoprolol Succinate (Toprol Xl), 1 TAB PO DAILY Ranolazine (Ranexa), 500 MG PO BID Sertraline Hcl (Zoloft), 1 TAB PO DAILY Scheduled PRN Acetaminophen (Acetaminophen), 500 MG PO Q6HP PRN for MILD PAIN (1-3 PAIN SCALE), (Reported) Fluticasone Propionate (Fluticasone Propionate), 0 VERA DAILYPRN PRN for NASAL CONGESTION, (Reported) Discharge Statement: "Patient was advised to return to the ER or call 911 if any headaches, dizziness, shortness of breath, chest pain, abdominal pain, bleeding, fevers, or worsening of medical condition. Patient was counseled about treatment plan, medications, possible side effects, patientverbalized understanding. All questions were answered to the best of my ability. This discharge took greater then 30 minutes in planning, reviewing documentation, counseling the patient, and discussing with other team members." ASSESSMENT ASSESSMENT Hospital Course Improved Assessment Tachy brittny syndrome with atrial flutter status post permanent pacemaker implantation by Dr. Kemp ckd 3a CAD w/ CATERERS HELPER in RCA HTN HLD MDD? chronic diastolic HF ejection fraction 65% HFpEF 65% not in exacerbation Resume losartan, Zoloft, lipitor, metoprolol, aspirin Plavix Eliquis Date of Service: Feb 19, 2025 Billing Provider: LUI OBANDO MD Common Visit Codes: 13773-ZZQ/OBS DISCH DAY >30min LUI OBANDO MD Feb 19, 2025 12:09
[2025-02-19 12:38] VITALS: BP 148/91; PULSE 69; RESP 18; TEMP 97.8; O2SAT 99
== END 2025-02-19 15:20 | disposition home health service (06) | DRG 171 ==
LOC: CATH 08:02 → OVERFLOW 12:12 → TELE-EAST 16:05
PROVIDERS: ADMIT Family Medicine; ATTEND Family Medicine
PROC: 0JH606Z Insertion of Pacemaker, Dual Chamber into Chest Subcutaneous Tissue and Fascia, Open Approach (ICD-10-PCS; principal; 2025-02-14)
PROC: 02H63JZ Insertion of Pacemaker Lead into Right Atrium, Percutaneous Approach (ICD-10-PCS; 2025-02-14)
PROC: B517YZZ Fluoroscopy of Left Subclavian Vein using Other Contrast (ICD-10-PCS; 2025-02-14)
PROC: 02HK3JZ Insertion of Pacemaker Lead into Right Ventricle, Percutaneous Approach (ICD-10-PCS; 2025-02-14)
DX: I49.5 Sick sinus syndrome (principal); Q26.1 Persistent left superior vena cava; I13.0 Hypertensive heart and chronic kidney disease with heart failure and stage 1 through stage 4 chronic kidney disease, or unspecified chronic kidney disease; N18.31 Chronic kidney disease, stage 3a; F32.9 Major depressive disorder, single episode, unspecified; I48.92 Unspecified atrial flutter; I50.32 Chronic diastolic (congestive) heart failure; Z01.812 Encounter for preprocedural laboratory examination; E78.00 Pure hypercholesterolemia, unspecified; I25.10 Atherosclerotic heart disease of native coronary artery without angina pectoris; Z95.0 Presence of cardiac pacemaker; Z79.899 Other long term (current) drug therapy
CPT/HCPCS: 33208; 36415; 71045; 75820; 80048; 80053; 83735; 84100; 84484; 85025; 85610; 85730; 93005; 97110; 97116; 97163; 97530; 99152; G0378; J2250; J2405; Q0162; Q9967

== ENCOUNTER 2025-03-10 06:59 | Inpatient (IN) | payer MEDICAID, OTHER ==
[~2025-03-10] VITALS: Ht 165.1 cm; Wt 56.5 kg
[~2025-03-10 06:59] MED LIST changes: +APIX5TAB PO; +DIGO0.12 PO; +DOCU-94 PO
--- NOTE | 2025-03-10 07:17 | ED.PDOC ---
HPI Comments This is a 64 year-old female, with a Hx of HTN, Hyperlipidemia, and Pacemaker in place, who presents to the ED via EMS with a chief complaint of chest pressure and Nausea as of 0000 this morning. Upon arrival to the ED, patients vitals are stable, with BP of 144/99. Patient has no further complaints or modifying factors at this time. Patient otherwise denies further associated symptoms of chest pain, palpitations, dizziness, or weakness. Chief Complaint: Chest Pain Time Seen by MD: 06:54 Reviewed Notes: Medications, Allergies Allergies: Coded Allergies: NO KNOWN ALLERGIES (Unverified , 03/10/25) Information Source: Patient, Emergency Med Personnel Mode of Arrival: EMS Severity: Moderate Timing: Hours Duration: Since onset Location: Substernal Radiation: No Radiation Onset: At Rest, With Light Exertion Associated Signs and Symptoms: Other (Nausea ) Past Medical History PAST MEDICAL HISTORY: High Lipids, HTN Surgical History: Pacemaker Family History Family History: Unknown Social History Smoker: Unknown Alcohol: Unknown Drugs: Unknown Lives In: Home Constitutional: denies: chills, diaphoresis, fatigue, fever, malaise, sweats, weakness, others EENTM: denies: blurred vision, double vision, ear bleeding, ear discharge, ear drainage, ear pain, ear ringing, eye pain, eye redness, hearing loss, mouth pain, mouth swelling, nasal discharge, nose bleeding, nose congestion, nose pain, photophobia, tearing, throat pain, throat swelling, voice changes, others Respiratory: denies: cough, hemoptysis, orthopnea, SOB at rest, shortness of breath, SOB with excertion, stridor, wheezing, others Cardiovascular: reports: chest pain; denies: dizzy spells, diaphoresis, Dyspnea on exertion, edema, irregular heart beat, left arm pain, lightheadedness, palpitations, PND, syncope, others Gastrointestinal: reports: nausea; denies: abdomen distended, abdominal pain, blood streaked bowels, constipated, diarrhea, dysphagia, difficulty swallowing, hematemesis, melena, poor appetite, poor fluid intake, rectal bleeding, rectal pain, vomiting, others Genitourinary: denies: abnormal vagina bleeding, burning, dyspareunia, dysuria, flank pain, frequency, hematuria, incontinence, pain, , vagina discharge, urgency, others Neurological: denies: dizziness, fainting, headache, left sided numbness, left sided weakness, numbness, paresthesia, pre-existing deficit, right sided numbness, right sided weakness, seizure, speech problems, tingling, tremors, weakness, others Musculoskeletal: denies: back pain, gout, joint pain, joint swelling, muscle pain, muscle stiffness, neck pain, others Integumetry: denies: bruises, change in color, change in hair/nails, dryness, laceration, lesions, lumps, rash, wounds, others Allergic/Immunocompromised: denies: Difficulty Healing, Frequent Infections, Hives, Itching, others Hematologic/Lymphatic: denies: anemia, blood clots, easy bleeding, easy bruising, swollen glands, others Endocrine: denies: excessive hunger, excessive sweating, excessive thirst, excessive urination, flushing, intolerance to cold, intolerance to heat, unexplained weight gain, unexplained weight loss, others Psychiatric: denies: anxiety, bipolar disorder, depression, hopeless, panic disorder, schizophrenia, sleepless, suicidal, others All Other Systems: Reviewed and Negative Physical Exam General Appearance: Mild Distress HEENT: Pharynx Normal Neck: Normal Inspection Respiratory: No Respiratory Distress Cardiovascular: Irregular Breast Exam: Deferred Gastrointestinal: Non Tender Genitalia: Deferred Pelvic: Deferred Rectal: Deferred Extremities: No pedal edema Neurologic: No Motor Deficits Cerebellar Function: NOT DONE Reflexes: NOT DONE Skin: Normal Color Lymphatic: NOT DONE EKG EKG : Pulse Rate (adult): 82 [place]: Normal Comments Atrial-sensed ventricular-paced complexes Paced Rhythm Left Anterior Fascicular Block Borderline T abnormalities Was a procedure done? Was a procedure done?: No CP Differential Dx Differential Diagnosis: Angina, Anxiety / Panic Attack Other Differential Diagnosis Pacemaker Differential Diagnosis: HTN Essential Differential Diagnosis: Chest Wall Pain, Gastritis X-Ray, Labs, Meds, VS Vital Signs Date Time Temp Pulse Resp B/P (MAP) Pulse Ox O2 Delivery O2 Flow Rate FiO2 03/10/25 08:04 81 03/10/25 08:03 135 03/10/25 07:37 84 18 141/80 (100) 97 03/10/25 07:27 97.9 117 15 156/75 (102) 100 97.9 03/10/25 07:27 117 100 Room Air* 0 21 03/10/25 07:17 82 03/10/25 07:05 82 03/10/25 07:00 98.3 120 18 144/82 98 98.3 Lab Test 03/10/25 08:18 03/10/25 07:28 Range/Units Troponin I High Sensitivity 31 29 </=34 ng/L White Blood Count 14.3 H 4.4-10.8 10^3/uL Red Blood Count 4.53 4.0-5.20 10^6/uL Hemoglobin 14.6 12.2-16.2 g/dL Hematocrit 42.4 36.0-46.0 % Mean Corpuscular Volume 93.5 80.0-100.0 fL Mean Corpuscular Hemoglobin 32.3 H 28.0-32.0 pg Mean Corpuscular Hemoglobin Concent 34.5 32.0-36.0 g/dL Red Cell Distribution Width 14.2 11.8-14.3 % Platelet Count 264 140-450 10^3/uL Mean Platelet Volume 8.1 6.9-10.8 fL Neutrophils (%) (Auto) 78.6 37.0-80.0 % Lymphocytes (%) (Auto) 12.6 10.0-50.0 % Monocytes (%) (Auto) 7.8 0.0-12.0 % Eosinophils (%) (Auto) 0.8 0.0-7.0 % Basophils (%) (Auto) 0.2 0.0-2.0 % Neutrophils # (Auto) 11.3 H 1.6-8.6 10 ^3/uL Lymphocytes # (Auto) 1.8 0.4-5.4 10 ^3/uL Monocytes # (Auto) 1.1 0-1.3 10 ^3/uL Eosinophils # (Auto) 0.1 0-0.8 10 ^3/uL Basophils # (Auto) 0 0-0.2 10 ^3/uL Nucleated Red Blood Cells 0.0 % Sodium Level 148 H 136-145 mmol/L Potassium Level 3.8 3.5-5.1 mmol/L Chloride Level 116 H 98-107 mmol/L Carbon Dioxide Level 23 20-31 mmol/L Anion Gap 9 5-15 Blood Urea Nitrogen 17 9-23 mg/dL Creatinine 0.97 0.550-1.02 mg/dL Glomerular Filtration Rate Calc 65 >90 mL/min BUN/Creatinine Ratio 17.5 10.0-20.0 Serum Glucose 105 74-106 mg/dL Calcium Level 9.7 8.7-10.4 mg/dL [facility] [id number] [place] [id number] Ph: [phone] DIAGNOSTIC IMAGING Diagnostic Imaging Report : [id number] Signed PATIENT: CLAUDIA SMALLNEACCT: [id number] UNIT: [id number] : 1960 LOC: ER ROOM / BED: / AGE / SEX: 64 / F ADM STATUS: REG ER SERVICE ORDERING PHYSICIAN: GABRIELA JORDAN MD PROCEDURE(s): CXRP - CHEST PORTABLE REASON: ams ORDER NUMBER(s): [id number], ACCESSION NUMBER(s): [id number] AP portable chest CLINICAL INDICATION: ams FINDINGS: Heart size is normal. Pacer leads in the heart No infiltrates or effusions. No bony thoracic abnormalities. IMPRESSION: 1. No acute cardiopulmonary pathology Time of 1ST Reevaluation: 07:44 Reevaluation 1ST: Unchanged Patient Education/Counseling: Diagnosis, Treatment Family Education/Counseling: No Family Present SEPSIS Sepsis Screen Physician Orders Chest Portable (03/10/25 07:08) Electrocardigram (03/10/25 07:08) Troponin-I Hs (03/10/25 10:08) Electrocardigram (03/10/25 08:08) Electrocardigram (03/10/25 10:08) Vital Signs Date Time Temp Pulse Resp B/P (MAP) Pulse Ox O2 Delivery O2 Flow Rate FiO2 03/10/25 08:04 81 03/10/25 08:03 135 03/10/25 07:37 84 18 141/80 (100) 97 03/10/25 07:27 97.9 117 15 156/75 (102) 100 97.9 03/10/25 07:27 117 100 Room Air* 0 21 03/10/25 07:17 82 03/10/25 07:05 82 03/10/25 07:00 98.3 120 18 144/82 98 98.3 Laboratory Tests Test 03/10/25 07:28 White Blood Count 14.3 10^3/uL (4.4-10.8) H Departure 1 Departure Time of Disposition: 09:31 (Patient presented with chest pain that was concerning for possible STEMI, ACS, PE, Pneumonia, Muscle Strain, COPD, Dissection. Data: 1. I ordered and reviewed the result of at least 3 labs i ncluding a CBC, BMP, and Troponin. 2. I independently interpreted the following tests: EKG which shows paced rhythm and Chest X-ray which shows benign chest.Risk:This patient has a high risk of morbidity due to further diagnostic testing or treatment and may suffer from an acute cardiac or respiratory disorder. Workup reveals concern for pacemaker malfunction for sh electrolyte abnormality and patient should be admitted for further workup and possible expert consultation. ) Impression: Primary Impression: Acute chest pain Additional Impressions: Generalized weakness Nausea and vomiting Pacemaker Disposition: ADMITTED INPATIENT Admit to: Tele Condition: Guarded Critical Care Note Critical Care Time?: Yes Critical care comment: Concern for pacemaker malfunction and acute chest pain Authorized and Performed by: Gabriela Jordan MD Total critical care time: Approximately 39 minutes Due to a high probability of clinically significant, life threatening deterioration, the patient required my highest level of preparedness to intervene emergently and I personally spent this critical care time directly and personally managing the patient. This critical care time included obtaining a history; examining the patient; pulse oximetry; ordering and review of studies; arranging urgent treatment with development of a management plan; evaluation of patient's response to treatment; frequent reassessment; and, discussions with other providers. This critical care time was performed to assess and manage the high probability of imminent, life-threatening deterioration that could result in multi-organ failure. It was exclusive of separately billable procedures and treating other patients and teaching time. Please see my other sections and the rest of the note for further information on patient assessment and treatment. Stability Stability form required: No Heart Score Heart Score: Heart Score Response (Comments) Value History Moderate Suspicious 1 EKG Normal 0 Age 45-64 1 Risk Factors 1 or 2 risk factors 1 Troponin N/A 0 Total 3 I personally scribed for GABRIELA JORDAN MD ([facility]) on 03/10/25 at 07:17. Electronically submitted by Krystyna Chowdhury ([employer]). I personally scribed for GABRIELA JORDAN MD ([facility]) on 03/10/25 at 08:27. Electronically submitted by Krystyna Chowdhury ([facility]). GABRIELA JORDAN MD Mar 10, 2025 07:17
[2025-03-10 07:27] VITALS: PULSE 117; O2SAT 100
[2025-03-10 07:57] LABS: Potassium 3.8 mmol/L (3.5-5.1)
[2025-03-10 07:58] LABS: Anion Gap 9 (5-15); Calcium 9.7 mg/dL (8.7-10.4); Carbon Dioxide 23 mmol/L (20-31); Hematocrit 42.4 % (36.0-46.0); Hemoglobin 14.6 g/dL (12.2-16.2); Mean Corpuscular Hemoglobin 32.3 pg (28.0-32.0); Mean Corpuscular Volume 93.5 fL (80.0-100.0); Nucleated Red Blood Cells % 0.0 %
[2025-03-10 08:03] LABS: BUN/Creatinine Ratio 17.5 (10.0-20.0); Blood Urea Nitrogen 17 mg/dL (9-23); Glucose 105 mg/dL (74-106)
[2025-03-10 08:05] LABS: Chloride 116 mmol/L (98-107); Sodium 148 mmol/L (136-145)
--- NOTE | 2025-03-10 08:18 | DVH ---
AP portable chest CLINICAL INDICATION: ams FINDINGS: Heart size is normal. Pacer leads in the heart No infiltrates or effusions. No bony thoracic abnormalities. IMPRESSION: 1. No acute cardiopulmonary pathology
[2025-03-10] MEDS ORDERED: NITROGLYCERIN 0.4 MG SL TAB SL PRN (10:30)
[2025-03-10] MEDS ORDERED: HYDROcodone-ACET 5/325MG TAB PO PRN (10:30)
[2025-03-10] MEDS ORDERED: ONDANSETRON HCL 4 MG/2 ML VIAL IV PRN (10:30)
[2025-03-10] MEDS ORDERED: MORPHINE SULFATE INJ 2 MG/ml SYRG IV PRN (10:30)
[2025-03-10] MEDS ORDERED: ATORVASTATIN 20 MG TAB PO SCH (11:00)
[2025-03-10] MEDS ORDERED: hydrALAZINE HCL 20 MG/ML VL IV PRN (11:15)
--- NOTE | 2025-03-10 11:21 | DVHHPRES ---
History of Present Illness Resident Creating Document: CHON MOMIN RESIDENT History of Present Illness Ms. Rivas Holcomb, a 64-year-old female with a limited known medical history of hypertension, dyslipidemia,CAD with resistant angina on Ranolazine ER, paroxysmal A fib with RVR, generalized anxiety disorder, on Biotronik dual chamber pacemaker presents to the ED via EMS for substernal chest pressure and nausea that began around midnight while at rest and with light exertion. The patient felt spontaneous discharges from the pacemaker. Severity is moderate, duration several hours, and symptoms are non-radiating. Differential includes angina, anxiety/panic attack, chest wall pain, gastritis, and uncontrolled hypertension. On arrival, vital signs were stable with BP 144/99. PMHx: Dyslipidemia on Atorvastatin, HTN on Losartan, amlodipine, chronic constipation, CAD with resistant angina on Ranolazine ER, 500 bid (previously on isosorbide mononitrates ER 30 mg daily), a fib RVR on Eliquis 5mg bid, digoxin 125 mcg daily, Anxiety disorder on Sertraline 100 mg daily. Clopidogrel, flecainide 100 bid. PSHx: Biotronik Dual Chamber Pacemaker, Atrial-sensed ventricular-paced complexes. B/l Cataract, yet to have surgery. Family history: Noncontributory to the hospitalization. Social history: Comes from home, lives at home with , but confirmed next kin Shanti Velasquez, (Friend) Review of Systems Constitutional: No: Fever, Chills, Sweats, Weakness, Malaise, Other Eyes: No: Pain, Vision change, Conjunctivae inflammation, Eyelid inflammation, Other, Redness ENT: No: Ear pain, Ear discharge, Nose pain, Nose discharge, Nose congestion, Mouth pain, Mouth swelling, Throat pain, Throat swelling, Other Respiratory: No: Cough, Dry, Shortness of breath, SOB with excertion, Wheezing, Hemoptysis, Pleuritic Pain, Sputum, Wheezing, Other Cardiovascular: Chest Pain, Palpitations, Lt Headedness; No: Orthopnea, Paroxysmal Noc. Dyspnea, Edema, Other Gastrointestinal: Nausea, Constipation; No: Vomiting, Abdominal Pain, Diarrhea, Melena, Hematochezia, Other Genitourinary: No Dysuria, No Frequency, No Incontinence, No Hematuria, No Retention, No Other Musculoskeletal: No: other, neck pain, shoulder pain, arm pain, back pain, hand pain, leg pain, foot pain Skin: No: Rash, Lesions, Jaundice, Bruising, Other Neurological: No: Weakness, Numbness, Incoordination, Change in speech, Confusion, Seizures, Other Allergies: Coded Allergies: NO KNOWN ALLERGIES (Unverified , 03/10/25) Medications Current Medications Medications Dose Ordered Sig/Merly Route Start Time Stop Time Status Last Admin Dose Admin Acetaminophen 325 mg Q4HP PRN PO 03/10/25 10:30 Acetaminophen/ Hydrocodone Bitart 1 tab Q4HP PRN PO 03/10/25 10:30 Ondansetron HCl 4 mg Q4HP PRN IV 03/10/25 10:30 Docusate Sodium 100 mg BIDPRN PRN PO 03/10/25 10:30 Morphine Sulfate 2 mg Q4HPRN PRN IV 03/10/25 10:30 Nitroglycerin 0.4 mg Q5MINP PRN SL 03/10/25 10:30 Morphine Sulfate 2 mg Q30M PRN IV 03/10/25 10:30 Atorvastatin Calcium 40 mg DAILY PO 03/10/25 11:00 UNV Sertraline HCl 100 mg DAILY PO 03/11/25 10:00 UNV Ranolazine 500 mg BID PO 03/10/25 22:00 UNV Clopidogrel Bisulfate 75 mg DAILY PO 03/10/25 11:00 UNV Pantoprazole Sodium 40 mg DAILY IV 03/10/25 11:15 UNV Apixaban 5 mg BID PO 03/10/25 22:00 UNV Exam Vital Signs Vital Signs Date Time Temp Pulse Resp B/P (MAP) Pulse Ox O2 Delivery O2 Flow Rate FiO2 03/10/25 10:04 80 03/10/25 07:37 18 141/80 (100) 97 03/10/25 07:27 97.9 97.9 03/10/25 07:27 Room Air* 0 21 General Appearance: Alert, Oriented X3, Cooperative, mild distress HEENT: Atraumatic, PERRLA, EOMI, Mucous membr. moist/pink Respiratory: Clear to auscultation, Normal air movement, Other (in room air ) Cardiovascular: Regular rate, Normal S1, Normal S2, No murmurs, Other (HR around 100s ) Abdominal: Normal bowel sounds, Soft, No tenderness, No hepatospenomegaly, No masses Extremities: No clubbing, No cyanosis, No edema, Normal pulses, No tenderness/swelling Skin: No rashes, No breakdown, No significant lesion Neuro: Normal gait, Normal speech, Strength at 5/5 X4 ext (4/5 b/l lower limbs ) Psych/Mental Status: Mental status NL, Mood NL Labs/Xrays Labs Test 03/10/25 10:28 03/10/25 07:28 Range/Units White Blood Count 14.3 H 4.4-10.8 10^3/uL Red Blood Count 4.53 4.0-5.20 10^6/uL Hemoglobin 14.6 12.2-16.2 g/dL Hematocrit 42.4 36.0-46.0 % Mean Corpuscular Volume 93.5 80.0-100.0 fL Mean Corpuscular Hemoglobin 32.3 H 28.0-32.0 pg Mean Corpuscular Hemoglobin Concent 34.5 32.0-36.0 g/dL Red Cell Distribution Width 14.2 11.8-14.3 % Platelet Count 264 140-450 10^3/uL Mean Platelet Volume 8.1 6.9-10.8 fL Neutrophils (%) (Auto) 78.6 37.0-80.0 % Lymphocytes (%) (Auto) 12.6 10.0-50.0 % Monocytes (%) (Auto) 7.8 0.0-12.0 % Eosinophils (%) (Auto) 0.8 0.0-7.0 % Basophils (%) (Auto) 0.2 0.0-2.0 % Neutrophils # (Auto) 11.3 H 1.6-8.6 10 ^3/uL Lymphocytes # (Auto) 1.8 0.4-5.4 10 ^3/uL Monocytes # (Auto) 1.1 0-1.3 10 ^3/uL Eosinophils # (Auto) 0.1 0-0.8 10 ^3/uL Basophils # (Auto) 0 0-0.2 10 ^3/uL Nucleated Red Blood Cells 0.0 % Sodium Level 148 H 136-145 mmol/L Potassium Level 3.8 3.5-5.1 mmol/L Chloride Level 116 H 98-107 mmol/L Carbon Dioxide Level 23 20-31 mmol/L Anion Gap 9 5-15 Blood Urea Nitrogen 17 9-23 mg/dL Creatinine 0.97 0.550-1.02 mg/dL Glomerular Filtration Rate Calc 65 >90 mL/min BUN/Creatinine Ratio 17.5 10.0-20.0 Serum Glucose 105 74-106 mg/dL Calcium Level 9.7 8.7-10.4 mg/dL SEPSIS Sepsis Screen Date sepsis recognized/suspect: Mar 10, 2025 Time Sepsis recognized/suspect: 726 Recent Procedure: No On Antibiotic Therapy: No Respiratory Rate >20: No Heart Rate >90: Yes Temp<36 C (96.8 F) or >38.3 C: No SBP <90 or MAP <65 mmHG: No New Acute Mental Status Change: No Is the patient on CPAP, BIPAP,: No Physician Orders Chest Portable (03/10/25 07:08) Electrocardigram (03/10/25 07:08) Troponin-I Hs (03/10/25 10:08) Electrocardigram (03/10/25 08:08) Electrocardigram (03/10/25 10:08) Admit (03/10/25 10:20) Allergies (03/10/25 10:20) Code Status (03/10/25 10:20) Acetaminophen Tablet (Tylenol Tablet) (03/10/25 10:30) Hydrocodone-Acet 5/325mg Tab (Purvis 5/32 (03/10/25 10:30) Ondansetron Hcl (Zofran) (03/10/25 10:30) Docusate Sodium Capsule (Colace Capsule) (03/10/25 10:30) Complete Blood Count (03/11/25 04:00) Comprehensive Metabolic Panel (03/11/25 04:00) Npo (Nothing By Mouth) Diet (03/10/25 Lunch) Echo 2d Mode Cardiac Dop (03/10/25 10:20) Condition: Serious (03/10/25 10:20) Morphine Sulfate Injection (03/10/25 10:30) Sequential Compression Device (03/10/25 ) Nitroglycerin Sublingual (Ntrostat Subli (03/10/25 10:30) Morphine Sulfate Injection (03/10/25 10:30) Oxygen By Nasal Cannula (03/10/25 10:20) Stat Ekg For Chest Pain (03/10/25 10:20) Notify Md Of Changes From Base (03/10/25 10:20) Vice President Consulting Services For 24 Hours (03/10/25 10:20) Emergency Dysrhythmia Protocol (03/10/25 10:20) Rhythm Strips Once Every Shift (03/10/25 10:20) Covid19 Antigen Lashawn (03/10/25 ) Rapid Influenza A&B (03/10/25 10:34) Urinalysis (03/10/25 10:34) Drug Screen (03/10/25 10:34) Thyroid Stimulating Hormone (03/10/25 10:34) Blood Culture (03/10/25 10:34) Mrsa Screen (03/10/25 10:34) Respiratory Culture W/ Gs (03/10/25 10:34) Prothrombin Time W/ Inr (03/10/25 10:34) Partial Thromboplastin Time (03/10/25 10:34) D-Dimer (03/10/25 10:34) Electrocardigram (03/10/25 10:34) B-Type Natriuretic Peptide (03/10/25 10:34) End Touching Machine Operator To Assess Pacemaker (03/10/25 10:34) Hemoglobin A1c (03/10/25 10:34) Hepatic Panel (03/10/25 10:34) Atorvastatin (Lipitor) (03/10/25 11:00) Sertraline Hcl (Zoloft) (03/11/25 10:00) Ranolazine (Ranexa Er) (03/10/25 22:00) Lipase (03/10/25 10:47) Clopidogrel Bisulfate (Plavix) (03/10/25 11:00) Orthostatic Vital Signs (03/10/25 10:52) Bilat Lower Dvt (03/10/25 10:52) Magnesium (03/10/25 10:53) Troponin-I Hs (03/10/25 10:53) Pantoprazole (Protonix) (03/10/25 11:15) Apixaban (Eliquis) (03/10/25 22:00) Lactated Ringers Lr (03/10/25 11:15) Npo Except For Medications (03/10/25 11:08) Hydralazine Injection (Apresoline Inject (03/10/25 11:15) Fall Precautions Initiated (03/10/25 11:13) Fall Risk Precautions In Place QSHIFT (03/10/25 11:13) Vital Signs Date Time Temp Pulse Resp B/P (MAP) Pulse Ox O2 Delivery O2 Flow Rate FiO2 03/10/25 10:04 80 03/10/25 08:04 81 03/10/25 08:03 135 03/10/25 07:37 84 18 141/80 (100) 97 03/10/25 07:27 97.9 117 15 156/75 (102) 100 97.9 03/10/25 07:27 117 100 Room Air* 0 21 03/10/25 07:17 82 03/10/25 07:05 82 03/10/25 07:00 98.3 120 18 144/82 98 98.3 Laboratory Tests Test 03/10/25 07:28 White Blood Count 14.3 10^3/uL (4.4-10.8) H Assessment/Plan Assessment/Plan Assessment and plan: Present on Admission: #substernal chest pressure /pain, likely unstable angina: started midnight while sleeping, hemodynamically stable, troponin trend, BNP, echo, UDS, telemetry with close follow up. #epigastric discomfort with nausea: ruled out intra-abdominal pathologies, NPO , lipase, NPO, gentle hydration, rule out cyclic vomiting syndrome. #likely acute sepsis / SIRS criteria met with elevated WBC with predominant neutrophilia and tachycardia, afebrile, hemodynamically stable sources unknown workup in progress , blood culture, urinalysis, sputum culture, viral panel to check. sepsis dose fluid held as limited history till CHF and further respiratory and cardiac history /evaluation in progress. #recurrent dizziness: Carotid Doppler, orthostatic vitals, EKG checks, telemetry to check, fall precautions, if acute neurological changes consider head CT without contrast. Can consider PT eval before safe discharge As patient is on Eliquis 5 b.i.d. full anticoagulation. Antibiotics as per source of infection. Cultures to follow up Known Medical Conditions: #Dyslipidemia on Atorvastatin, continue #Essential HTN pm Losartan, amlodipine, holding, blood pressure labile, unde rlying infection to rule out, target blood pressure 140/90 , check for diabetes with HbA1c #recurrent constipation, as needed laxatives #CAD with resistant angina on Ranolazine ER, 500 bid (previously on isosorbide mononitrate ER 30 mg daily)\Clopidogrel 75 mg to continue #known paroxysmal a fib RVR on Eliquis 5mg bid, digoxin 125 mcg daily, telemetry #Anxiety disorder on Sertraline 100 mg daily to continue with close monitoring of QTC. #life-threatening ventricular tachyarrhythmias prevention with flecainide 100 bid, check QTC, telemetry to continue. Flecainide can cause ECG changes such as prolonged MA interval, widened QRS comp elsa, and prolonged QT interval, and may unmask Brugada syndrome [3]. It may also increase pacing thresholds in patients with pacemakers [5]. #Known Left Anterior Fascicular Block #Pacemaker in-situ, Atrial-sensed ventricular-paced complexes, Biotronik: De vice interrogation pending. Diet: NPO except medications PUD prophylaxis: protonix 40mg iv for now, NPO DVT prophylaxis: Eliquis 5 bid/brisk movement. Barriers to discharge: Medical diagnosis and management in progress. PT and SW consult as needed. PCP: Gi Kirby DNP / Dr. Villavicencio. Specialist Relevant To Admission: Cardiology, Follows Dr. Kemp, consulted, if needed consult nursing education consultant cardiology. Last visit earlier this month outpatient [facility]. Case discussed with Dr. Villavicencio. Code Status: Full Code. Discussion of clinical care and goals of care discussion needed total 27 minutes bedside. Plan discussed with: Patient, Other (primary team RN) My Orders Orders - CHON MOMIN RESIDENT Procedure Category Date Status Time Admit ADMIT 03/10/25 Transmitted 10:20 Allergies MIKE 03/10/25 In Process 10:20 Code Status CODE 03/10/25 Transmitted 10:20 Acetaminophen Tablet PHA 03/10/25 In Process (Tylenol Tablet) 10:30 Hydrocodone-Acet PHA 03/10/25 In Process 5/325mg Tab (Purvis 10:30 Ondansetron Hcl PHA 03/10/25 In Process (Zofran) 10:30 Docusate Sodium PHA 03/10/25 In Process Capsule (Colace 10:30 Complete Blood Count LAB 03/11/25 Verified 04:00 Comprehensive LAB 03/11/25 Verified Metabolic Panel 04:00 Npo (Nothing By DIET 03/10/25 Transmitted Mouth) Diet Lunch Echo 2d Mode Cardiac US 03/10/25 Logged DOP 10:20 Condition: Serious MIKE 03/10/25 In Process 10:20 Morphine Sulfate PHA 03/10/25 In Process Injection 10:30 Sequential MIKE 03/10/25 In Process Compression Device Nitroglycerin PHA 03/10/25 In Process Sublingual (Ntrostat 10:30 Morphine Sulfate PHA 03/10/25 In Process Injection 10:30 Oxygen By Nasal RT 03/10/25 Transmitted Cannula 10:20 Stat Ekg For Chest MIKE 03/10/25 In Process Pain 10:20 Notify Of Changes MIKE 03/10/25 In Process From Base 10:20 Vice President Consulting Services For MIKE 03/10/25 In Process 24 Hours 10:20 Emergency Dysrhythmia MIKE 03/10/25 In Process Protocol 10:20 Rhythm Strips Once MIKE 03/10/25 In Process Every Shift 10:20 Covid19 Antigen Lashawn LAB 03/10/25 Logged Rapid Influenza A&B LAB 03/10/25 Logged 10:34 Urinalysis LAB 03/10/25 Logged 10:34 Drug Screen LAB 03/10/25 Logged 10:34 Thyroid Stimulating LAB 03/10/25 In Process Hormone 10:34 Blood Culture DANIEL 03/10/25 Logged 10:34 Mrsa Screen DANIEL 03/10/25 Logged 10:34 Respiratory Culture DANIEL 03/10/25 Logged W/ Gs 10:34 Prothrombin Time W/ LAB 03/10/25 In Process INR 10:34 Partial LAB 03/10/25 In Process Thromboplastin Time 10:34 D-Dimer LAB 03/10/25 In Process 10:34 Electrocardigram EKG 03/10/25 Logged 10:34 B-Type Natriuretic LAB 03/10/25 In Process Peptide 10:34 End Touching Machine Operator To Assess ORDERS 03/10/25 Transmitted Pacemaker 10:34 Hemoglobin A1c LAB 03/10/25 In Process 10:34 Hepatic Panel LAB 03/10/25 In Process 10:34 Atorvastatin (Lipitor) PHA 03/10/25 Logged 11:00 Sertraline Hcl PHA 03/11/25 Logged (Zoloft) 10:00 Ranolazine (Ranexa Er) PHA 03/10/25 Logged 22:00 Lipase LAB 03/10/25 Logged 10:47 Clopidogrel Bisulfate PHA 03/10/25 Logged (Plavix) 11:00 Orthostatic Vital ORDERS 03/10/25 Transmitted Signs 10:52 Bilat Lower Dvt US 03/10/25 Logged 10:52 Magnesium LAB 03/10/25 Logged 10:53 Troponin-I Hs LAB 03/10/25 Logged 10:53 Pantoprazole PHA 03/10/25 Logged (Protonix) 11:15 Apixaban (Eliquis) PHA 03/10/25 Logged 22:00 Lactated Ringers Lr PHA 03/10/25 Transmitted 11:15 Npo Except For MIKE 03/10/25 In Process Medications 11:08 Hydralazine Injection PHA 03/10/25 Transmitted (Apresoline Inject 11:15 Fall Precautions MIKE 03/10/25 Verified Initiated 11:13 Fall Risk Precautions [facility] 03/10/[address] 11:13 Date of Service: Mar 10, 2025 Billing Provider: LASHAWN VILLAVICENCIO MD Common Visit Codes: 52823-HXTSTKA INP/OBS CARE (HIGH) Secondary Visit Codes: 26069-[id number] CARE PLAN 30 MINUTES CHON MOMIN RESIDENT Mar 10, 2025 11:20
[2025-03-10 11:38] LABS: INR 0.97 (0.9-1.15); Partial Thromboplastin Time 33.2 SEC (24.5-34.5); Prothrombin Time 10.3 sec (9.3-11.8)
[2025-03-10 11:52] LABS: Alanine Aminotransferase 25.0 U/L (7-40); Albumin 4.7 g/dL (3.2-4.8); Alkaline Phosphatase 98.0 U/L (46-116); Bilirubin, Direct 0.1 mg/dL (<0.3); Bilirubin, Total 0.5 mg/dL (0.2-1.0); Total Protein 7.4 g/dL (5.7-8.2)
--- NOTE | 2025-03-10 12:27 | DVH ---
Bilateral lower extremity venous duplex Clinical History: high risk palpitation, HR elevated, chest pain, known Afib. Comparison: None Technique: Duplex Doppler evaluation of the deep venous systems of both lower extremities from the common femoral veins to the popliteal veins including color Doppler and spectral/pulsed waveform analysis was performed. Findings: RIGHT SIDE: The common femoral vein demonstrates appropriate compressibility and waveform variability. There is compressibility/patency of the great saphenous vein at the proximal thigh. The femoral vein demonstrates appropriate compressibility and waveform variability. The deep femoral vein demonstrates appropriate compressibility and waveform variability. The popliteal vein demonstrates appropriate compressibility and waveform variability. There is normal compressibility at the tibioperoneal trunk. LEFT SIDE: The common femoral vein demonstrates appropriate compressibility and waveform variability. There is compressibility/patency of the great saphenous vein at the proximal thigh. The femoral vein demonstrates appropriate compressibility and waveform variability. The deep femoral vein demonstrates appropriate compressibility and waveform variability. The popliteal vein demonstrates appropriate compressibility and waveform variability. There is normal compressibility at the tibioperoneal trunk. Impression: 1. No right or left femoropopliteal venous thrombosis.
[2025-03-10 13:00] VITALS: BP 111/77; PULSE 69; RESP 18; TEMP 98.6; O2SAT 97
[2025-03-10 13:38] LABS: Urine Protein, UAD Negative (Negative)
[2025-03-10 13:42] LABS: Benzodiazephine Screen, Urine Neg (NEGATIVE)
[2025-03-10 13:44] LABS: Amphetamine Screen, Urine Neg (NEGATIVE); Barbiturate Scree,Urine Neg (NEGATIVE); Cannabinoid Screen, Urine Pos (NEGATIVE); Cocaine Screen, Urine Neg (NEGATIVE); Opiate Scree,Urine Neg (NEGATIVE); Phencyclidine Screen, Urine Neg (NEGATIVE)
[2025-03-10 13:47] LABS: COVID19 ANTIGEN SOFIA FIA NEGATIVE (NEGATIVE)
[2025-03-10] MEDS: ACETAMINOPHEN 325 MG TAB PO PRN (16:25)
[2025-03-10] MEDS: PANTOPRAZOLE 40 MG/10 ML VIAL INJ IV SCH (16:25)
[2025-03-10] MEDS: CLOPIDOGREL BISULFATE 75 MG TAB PO SCH (16:25)
[2025-03-10] MEDS: LACTATED RINGER'S 1,000 ML IV ONE (16:26)
[2025-03-10 17:00] VITALS: BP 135/92; PULSE 84; RESP 16; TEMP 98.3; O2SAT 99
--- NOTE | 2025-03-10 17:09 | DVHINCON2 ---
Date Seen: Mar 10, 2025 Referring Physician MD Beatrice resident Reason for Consultation Palpitations, chest pain History of Present Illness This is a 64-year-old female patient who presents to emergency room with chief complaint of palpitations and chest pain. The patient reports that the palpitations began at midnight this morning. She states that the palpitations were unprovoked while she was sitting. She also mentions chest pain associated with the palpitations. She describes the chest pain as provoked by palpitations, intermittent, squeezing in nature, and located at the left inframammary area without radiation. Associated symptoms include lightheadedness. Initial twelve lead electrocardiogram reveals paced rhythm with underlying atrial fibrillation. Initial troponin level of 29ng/L with slight up trend and current peak level of 69ng/L. 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 Patient follows up with sewer head in the outpatient setting. Past Medical History Past medical history reviewed. No other significant than mentioned above. Past Surgical History Dual-chamber Permanent pacemaker implantation (Biotronik) on 02/14/2025 Family History: Alzheimer's disease G8 MOTHER Diabetes mellitus G8 MOTHER FH: heart attack G8 FATHER Family History Family history reviewed. Social History Patient has a 50 pack-year history, quit smoking approximately four years ago Admits to occasional marijuana use Denies any alcohol use Allergies: Coded Allergies: Ibuprofen (Verified Allergy, Unknown, 05/19/22) Home Meds Active Scripts Docusate Sodium (Colace) 100 Mg Cap, 1 CAP PO BID, #30 CAP Prov:LUI OBANDO MD 02/19/25 Digoxin (Digoxin) 125 Mcg Tab, 125 MCG PO DAILY, #30 TAB Prov:LUI OBANDO MD 02/19/25 Clopidogrel Bisulfate (Plavix) 75 Mg Tab, 1 TAB PO DAILY, #90 TAB 1 Refill Prov:LUI OBANDO MD 02/19/25 Apixaban Base (ELIQUIS) 5 Mg Tab, 5 MG PO BID, #180 TAB Prov:LUI OBANDO MD 02/19/25 Sertraline Hcl (Zoloft) 100 Mg Tab, 1 TAB PO DAILY, #30 TAB 5 Refills Prov:SUSANNE LYNCH MD 10/25/24 Metoprolol Succinate (Toprol Xl) 25 Mg Tab, 1 TAB PO DAILY, #90 TAB 1 Refill Prov:SUSANNE LYNCH MD 10/25/24 Aspirin (Aspir-81) 81 Mg Tab, 1 TAB PO DAILY, #30 TAB 5 Refills Prov:SUSANNE LYNCH MD 10/25/24 Clopidogrel Bisulfate (Plavix) 75 Mg Tab, 75 MG PO DAILY, #30 TAB Prov:SUSANNE LYNCH MD 10/25/24 Atorvastatin Calcium (Lipitor) 10 Mg Tab, 1 TAB PO DAILY, #30 TAB Prov:SUSANNE LYNCH MD 10/25/24 Amlodipine Besylate (NORVASC TABLET) 5 Mg Tb, 1 TAB PO DAILY, #30 TAB Prov:SUSANNE LYNCH MD 10/25/24 Ranolazine (Ranexa) 500 Mg Tab, 500 MG PO BID, #60 TAB Prov:GAMAL ZUNIGA MD 10/21/19 Reported Medications Flecainide Acetate (Flecainide Acetate) 50 Mg Tab, 50 MG PO BID for arrhythmia 02/12/25 Losartan Potassium (Losartan Potassium) 25 Mg Tab, 25 MG PO DAILY for 30 Days, MG 02/12/25 Fluticasone Propionate (Nasal) (Allergy Nasal [place] 24 Ho) 50 Mcg/Act Spr, 50 MCG NA DAILY, SPRAY 02/12/25 Fluticasone Propionate (Fluticasone Propionate) 0.05 % Cre, 0 VERA DAILYPRN PRN for NASAL CONGESTION 12/22/19 Acetaminophen (Acetaminophen) 325 Mg Tab, 500 MG PO Q6HP PRN for MILD PAIN (1-3 PAIN SCALE) 12/22/19 Home Meds Home medications reviewed. Current Medications Current Medications Medications (Trade) Dose Ordered Sig/Merly Route PRN Reason Start Time Stop Time Status Last Admin Acetaminophen (Tylenol Tablet) 325 mg Q4HP PRN PO MILD PAIN (1-3 PAIN SCALE) 03/10/25 10:30 03/10/25 16:25 Acetaminophen/ Hydrocodone Bitart ([place] 5/325MG Tab) 1 tab Q4HP PRN PO MODERATE PAIN (4-6 PAIN SCALE) 03/10/25 10:30 Ondansetron HCl (Zofran) 4 mg Q4HP PRN IV NAUSEA / VOMITING 03/10/25 10:30 Docusate Sodium (Colace Capsule) 100 mg BIDPRN PRN PO FOR CONSTIPATION 03/10/25 10:30 Morphine Sulfate 2 mg Q4HPRN PRN IV SEVERE PAIN (7-10 PAIN SCALE) 03/10/25 10:30 Nitroglycerin (Ntrostat Sublingual) 0.4 mg Q5MINP PRN SL FOR CHEST PAIN 03/10/25 10:30 Morphine Sulfate 2 mg Q30M PRN IV FOR CHEST PAIN 03/10/25 10:30 Atorvastatin Calcium (Lipitor) 40 mg DAILY PO 03/10/25 11:00 03/10/25 13:50 DC Sertraline HCl (Zoloft) 100 mg DAILY PO 03/11/25 10:00 Ranolazine (Ranexa ER) 500 mg BID PO 03/10/25 22:00 Clopidogrel Bisulfate (Plavix) 75 mg DAILY PO 03/10/25 11:00 03/10/25 16:25 Pantoprazole Sodium (Protonix) 40 mg DAILY IV 03/10/25 11:15 03/10/25 16:25 Apixaban (Eliquis) 5 mg BID PO 03/10/25 22:00 Hydralazine HCl (Apresoline Injection) 10 mg Q6HPRN PRN IV SBP>160 or DBP>105 03/10/25 11:15 Atorvastatin Calcium (Lipitor) 40 mg HS PO 03/10/25 22:00 Review of Systems Constitutional: No symptom reported Ears, Nose, & Throat: No symptom reported Eyes: No symptom reported Neurological: No symptoms reported Pulmonary/Respiratory: No symptoms reported Cardiovascular: Palpitations, chest pain Gastrointestinal: No symptom reported Genitourinary: No symptom reported Musculoskeletal: No symptom reported Skin: No symptom reported Psychiatric: No symptom reported Endocrine: No symptom reported Hematologic/Lymphatic: No symptom reported Vital Signs Vital Signs Date Time Temp Pulse Resp B/P (MAP) Pulse Ox O2 Delivery O2 Flow Rate FiO2 03/10/25 13:00 98.6 69 18 111/77 (88) 97 98.6 03/10/25 07:27 Room Air* 0 21 Physical Exam General Appearance: Cooperative. Well-developed. Well-nourished. No acute distress. Pulmonary/Respiratory: Clear, bilateral breaths sounds. Cardiovascular/Chest: Regular rate and rhythm. Peripheral Pulses: 2+ Radial (R). 2+ Radial (L). 2+ Pedal (R). 2+ Pedal (L) Abdominal Exam: Normal bowel sounds. Ankle Exam: Negative ankle edema Lower extremities: Negative lower extremity edema Neuro/Mental Status: A/OX4, coherent. Thoughts/Psych: Normal thought pattern. Appropriate mood and affect. Good judgment and insight. Appearance: No acute distress. Skin Exam: Normal inspection. Normal color. Warm and dry. Labs/Diagnostic Data Labs Test 03/10/25 13:01 03/10/25 13:00 03/10/25 11:29 03/10/25 11:19 Range/Units Urine Opiates Screen Neg NEGATIVE Urine Fentanyl Screen Neg NEGATIVE Urine Barbiturates Screen Neg NEGATIVE Urine Phencyclidine Screen Neg NEGATIVE Urine Amphetamines Screen Neg NEGATIVE Urine Benzodiazepines Screen Neg NEGATIVE Urine Cocaine Screen Neg NEGATIVE Urine Cannabinoids Screen Pos NEGATIVE Urine Color Light-yellow Yellow Urine Clarity Clear Clear Urine pH 6.5 5.0-9.0 Urine Specific [place] 1.013 1.001-1.035 Urine Protein Negative Negative Urine Ketones Negative Negative Urine Blood Negative Negative /uL Urine Nitrite Negative Negative Urine Bilirubin Negative Negative Urine Urobilinogen Normal Negative mg/dL Urine Leukocyte Esterase Negative Negative /uL Urine RBC 2 0 - 4 /hpf Urine Microscopic WBC 0-5 /HPF Urine Squamous Epithelial Cells None seen <5 /hpf Urine Bacteria None seen None Seen /hpf Urine Glucose Normal Normal mg/dL Troponin I High Sensitivity 69 *H </=34 ng/L Digoxin Level 0.69 L 0.8-2 ng/mL Influenza Type A Antigen Negative Negative Influenza Type B Antigen Negative Negative SARS-CoV-2 Antigen (Rapid) Negative NEGATIVE Test 03/10/25 07:28 Range/Units White Blood Count 14.3 H 4.4-10.8 10^3/uL Red Blood Count 4.53 4.0-5.20 10^6/uL Hemoglobin 14.6 12.2-16.2 g/dL Hematocrit 42.4 36.0-46.0 % Mean Corpuscular Volume 93.5 80.0-100.0 fL Mean Corpuscular Hemoglobin 32.3 H 28.0-32.0 pg Mean Corpuscular Hemoglobin Concent 34.5 32.0-36.0 g/dL Red Cell Distribution Width 14.2 11.8-14.3 % Platelet Count 264 140-450 10^3/uL Mean Platelet Volume 8.1 6.9-10.8 fL Neutrophils (%) (Auto) 78.6 37.0-80.0 % Lymphocytes (%) (Auto) 12.6 10.0-50.0 % Monocytes (%) (Auto) 7.8 0.0-12.0 % Eosinophils (%) (Auto) 0.8 0.0-7.0 % Basophils (%) (Auto) 0.2 0.0-2.0 % Neutrophils # (Auto) 11.3 H 1.6-8.6 10 ^3/uL Lymphocytes # (Auto) 1.8 0.4-5.4 10 ^3/uL Monocytes # (Auto) 1.1 0-1.3 10 ^3/uL Eosinophils # (Auto) 0.1 0-0.8 10 ^3/uL Basophils # (Auto) 0 0-0.2 10 ^3/uL Nucleated Red Blood Cells 0.0 % Prothrombin Time 10.3 9.3-11.8 sec Prothrombin Time INR 0.97 0.9-1.15 Activated Partial Thromboplast Time 33.2 24.5-34.5 SEC D-Dimer, Quantitative 0.78 H 0.0-0.49 mg/L FEU Sodium Level 148 H 136-145 mmol/L Potassium Level 3.8 3.5-5.1 mmol/L Chloride Level 116 H 98-107 mmol/L Carbon Dioxide Level 23 20-31 mmol/L Anion Gap 9 5-15 Blood Urea Nitrogen 17 9-23 mg/dL Creatinine 0.97 0.550-1.02 mg/dL Glomerular Filtration Rate Calc 65 >90 mL/min BUN/Creatinine Ratio 17.5 10.0-20.0 Serum Glucose 105 74-106 mg/dL Hemoglobin A1c 5.1 <5.7 % A1C Calcium Level 9.7 8.7-10.4 mg/dL Magnesium Level 2.1 1.6-2.6 mg/dL Total Bilirubin 0.5 0.2-1.0 mg/dL Direct Bilirubin 0.1 <0.3 mg/dL Aspartate Amino Transferase (AST) 17 13-40 U/L Alanine Aminotransferase (ALT) 25 7-40 U/L Alkaline Phosphatase 98 46-116 U/L B-Type Natriuretic Peptide 157.46 0-100 pg/mL Total Protein 7.4 5.7-8.2 g/dL Albumin 4.7 3.2-4.8 g/dL Lipase 37 12-53 U/L Thyroid Stimulating Hormone (TSH) 1.37 0.55-4.78 uIU/mL Assessment Atrial fibrillation with rapid ventricular response Tachy-brittny syndrome status post dual-chamber permanent pacemaker implantation (Biotronik) Paroxysmal atrial fibrillation/atrial flutter (on Eliquis therapy) Chest pain, rule out progressive coronary artery disease Coronary artery disease with 100% occluded RCA not amenable to catheter based intervention (on Plavix therapy) History of supraventricular tachycardia Persistent left superior vena cava (PLSVC) Hypertension Dyslipidemia History of tobacco use Anxiety Plan/Recommendation We will continue with the following plan/recommendations (Dr. Kemp): * Obtain transthoracic echocardiogram to evaluate cardiac function * Previous transthoracic echocardiogram from 10/22/2024 reveals an EF of 65% * [id number] VASc score: 3 points, HAS-BLED: 1 point * Inpatient therapeutic Lovenox, transition back to DOAC prior to discharge * Beta-wagner for rate control * Resume digoxin therapy * Resume flecainide * Chest pain protocol * HEART score: 4 points * ASH score: 2 points * Continue single antiplatelet therapy lipid-lowering agent * Close Cardiac surveillance * Pacemaker interrogation: Reviewed by sewer head and reveals a normal funct ioning pacemaker with episodes of atrial fibrillation with rapid ventricular response up to 140 beats per minute. Case discussed and reviewed with . reviewed patient's previous coronary angiograms done at this facility (last one was on 12/27/2019). Given the patient's symptoms and known coronary artery disease, the patient may benefit from a coronary angiogram with left heart catheterization. Given that the patient takes Eliquis therapy, Eliquis will need to be stopped and we will initiate therapeutic Lovenox during this stay. We will plan for coronary angiogram on 03/14/2025. Thank you for allowing us to care for this patient. Please call with any questions or concerns. Critical care time spent: 44 minutes This medical document was created using an electronic medical record system with voice recognition software and computerized dictation system. Although this document has been carefully reviewed, there might still be some phonetic and typographical errors. Occasional wrong-word or ``sound-alike substitutions may have occurred due to the inherent limitations of voice recognition software. These areas are purely typographical due to imperfections of the software programs and do not reflect any compromise in the patient's medical care. Please read the chart carefully and recognize, using context, where these substitutions have occurred. Plan discussed with: Patient NYHA Physical activity limitations: NA Date of Service: Mar 10, 2025 Billing Provider: SEYMOUR RACHEL Cardiology Common Codes: [id number] INP/OBS CARE (High) Cardiology Consultation Codes: [id number] CONSULT <45MIN SEYMOUR RACHEL Mar 10, 2025 17:09
[2025-03-10] MEDS: MORPHINE SULFATE INJ 2 MG/ml SYRG ONE (19:53)
[2025-03-10 20:00] VITALS: PULSE 72; RESP 18; O2SAT 99
[2025-03-10] MEDS: MORPHINE SULFATE INJ 2 MG/ml SYRG IV PRN (20:01)
[2025-03-10] MEDS: ATORVASTATIN 20 MG TAB ONE (20:55)
[2025-03-10] MEDS: METOPROLOL TARTRATE 50 MG TAB ONE (20:59)
[2025-03-10] MEDS: RANOLAZINE ER 500 MG TAB PO ONE (21:12)
[2025-03-10] MEDS: RANOLAZINE ER 500 MG TAB PO SCH (21:20)
[2025-03-10] MEDS: ATORVASTATIN 20 MG TAB PO SCH (21:22)
[2025-03-10] MEDS: METOPROLOL TARTRATE 25 MG TAB PO SCH (21:22)
[2025-03-10] MEDS: FLECAINIDE ACETATE 50 MG TAB PO SCH (21:23)
[2025-03-10] MEDS: ENOXAPARIN SOD 100 MG/1 ML SYRINGE SC SCH (21:26)
[2025-03-10] MEDS ORDERED: APIXABAN 5 MG TAB PO SCH (22:00)
[2025-03-11 01:00] VITALS: BP 135/82; PULSE 71; RESP 17; TEMP 98.3; O2SAT 96
[2025-03-11 08:15] LABS: Hematocrit 45.0 % (36.0-46.0); Hemoglobin 14.9 g/dL (12.2-16.2); Mean Corpuscular Hemoglobin 31.4 pg (28.0-32.0); Mean Corpuscular Volume 94.7 fL (80.0-100.0); Nucleated Red Blood Cells % 0.1 %
[2025-03-11 08:34] LABS: Alanine Aminotransferase 19 U/L (7-40); Albumin 4.5 g/dL (3.2-4.8); Alkaline Phosphatase 86 U/L (46-116); Anion Gap 12 (5-15); BUN/Creatinine Ratio 18.1 (10.0-20.0); Blood Urea Nitrogen 15 mg/dL (9-23); Calcium 9.5 mg/dL (8.7-10.4); Carbon Dioxide 21 mmol/L (20-31); Glucose 87 mg/dL (74-106); Potassium 4.2 mmol/L (3.5-5.1); Total Protein 7.4 g/dL (5.7-8.2)
[2025-03-11 08:35] LABS: Bilirubin, Total 0.5 mg/dL (0.2-1.0); Chloride 113 mmol/L (98-107); Sodium 146 mmol/L (136-145)
[2025-03-11 10:00] VITALS: BP 155/91; PULSE 85; RESP 18; TEMP 97.6; O2SAT 98
[2025-03-11] MEDS: CLOPIDOGREL BISULFATE 75 MG TAB ONE (10:15)
[2025-03-11] MEDS: DIGOXIN 0.125 MG TAB ONE (10:15)
[2025-03-11] MEDS: FLECAINIDE ACETATE 50 MG TAB ONE (10:15)
[2025-03-11] MEDS: PANTOPRAZOLE 40 MG/10 ML VIAL INJ IV ONE (10:16)
[2025-03-11] MEDS: METOPROLOL TARTRATE 50 MG TAB ONE (10:16)
[2025-03-11] MEDS: SERTRALINE HCL 50 MG TAB ONE (10:16)
[2025-03-11] MEDS: RANOLAZINE ER 500 MG TAB PO ONE (10:16)
[2025-03-11] MEDS: ENOXAPARIN SOD 100 MG/1 ML SYRINGE SC ONE (10:16)
[2025-03-11] MEDS: DIGOXIN 0.125 MG TAB PO SCH (10:26)
[2025-03-11] MEDS: SERTRALINE HCL 50 MG TAB PO SCH (10:28)
--- NOTE | 2025-03-11 11:09 | DVHPN2 ---
Consult Progress Note Subjective Other Systems: Patient is in atrial fibrillation with uncontrolled rate on compliance monitor Objective vital signs Vital Sign Date Time Temp Pulse Resp B/P (MAP) Pulse Ox O2 Delivery O2 Flow Rate FiO2 03/11/25 10:26 82 03/11/25 01:00 98.3 17 135/82 (99) 96 98.3 03/10/25 20:00 Room Air* 0 21 Total Intake and Output 03/10/25 03/10/25 03/11/25 15:00 23:00 07:00 Intake Total 0 ml Balance 0 ml medications Current Medications Medications Dose Ordered Sig/Merly Route Start Time Stop Time Status Last Admin Dose Admin Acetaminophen 325 mg Q4HP PRN PO 03/10/25 10:30 03/10/25 16:25 325 MG Acetaminophen/ Hydrocodone Bitart 1 tab Q4HP PRN PO 03/10/25 10:30 Ondansetron HCl 4 mg Q4HP PRN IV 03/10/25 10:30 Docusate Sodium 100 mg BIDPRN PRN PO 03/10/25 10:30 Morphine Sulfate 2 mg Q4HPRN PRN IV 03/10/25 10:30 03/10/25 20:01 2 MG Nitroglycerin 0.4 mg Q5MINP PRN SL 03/10/25 10:30 Morphine Sulfate 2 mg Q30M PRN IV 03/10/25 10:30 Sertraline HCl 100 mg DAILY PO 03/11/25 10:00 03/11/25 10:28 100 MG Ranolazine 500 mg BID PO 03/10/25 22:00 03/11/25 10:23 500 MG Clopidogrel Bisulfate 75 mg DAILY PO 03/10/25 11:00 03/11/25 10:23 75 MG Pantoprazole Sodium 40 mg DAILY IV 03/10/25 11:15 03/11/25 10:29 40 MG Hydralazine HCl 10 mg Q6HPRN PRN IV 03/10/25 11:15 Atorvastatin Calcium 40 mg HS PO 03/10/25 22:00 03/10/25 21:22 40 MG Enoxaparin Sodium 50 mg Q12HR SC 03/10/25 22:00 03/11/25 10:37 50 MG Flecainide Acetate 50 mg Q12HR PO 03/10/25 22:00 03/11/25 10:28 50 MG Digoxin 0.125 mg DAILY PO 03/11/25 10:00 03/11/25 10:26 0.125 MG Metoprolol Tartrate 12.5 mg BID PO 03/10/25 22:00 03/10/25 21:22 12.5 MG Examination: GENERAL:Normal, LUNGS:Normal, CVS:Abnormal (Atrial fibrillation with uncontrolled rate), NEURO:Normal laboratory and microbiology Laboratory Tests 03/11/25 07:24 Test 03/11/25 07:24 Range/Units Serum Glucose 87 74-106 mg/dL Problem List/Assessment/Plan Problem List/Assessment/Plan Atrial fibrillation with rapid ventricular response Tachy-brittny syndrome status post dual-chamber permanent pacemaker implantation (VMRay GmbHronik) Paroxysmal atrial fibrillation/atrial flutter (on Eliquis and Flecainide therapy) Chest pain, rule out progressive coronary artery disease Coronary artery disease with 100% occluded RCA not amenable to catheter based intervention (on Plavix therapy) History of supraventricular tachycardia Persistent left superior vena cava (PLSVC) Hypertension Dyslipidemia History of tobacco use Anxiety Plan/Recommendations (Dr. Kemp): * Obtain transthoracic echocardiogram to evaluate cardiac function * Previous transthoracic echocardiogram from 10/22/2024 reveals an EF of 65% * [id number] VASc score: 3 points, HAS-BLED: 1 point * Inpatient therapeutic Lovenox, transition back to DOAC prior to discharge * Beta-wagner for rate control * Resume digoxin therapy * Resume flecainide * Chest pain protocol * HEART score: 4 points * ASH score: 2 points * Continue single antiplatelet therapy lipid-lowering agent * Close Cardiac surveillance * Pacemaker interrogation: Reviewed by finishing trimmer and reveals a normal functioning pacemaker with episodes of atrial fibrillation with rapid ventricular response up to 140 beats per minute. Case discussed and reviewed with . reviewed patient's previous coronary angiograms done at this facility (last one was on 12/27/2019). Given the patient's symptoms and known coronary artery disease, the patient may benefit from a coronary angiogram with left heart catheterization. Given that the patient takes Eliquis therapy, Eliquis will need to be stopped and we will initiate therapeutic Lovenox during this stay. The procedure was discussed with the patient in full detail including risks and benefits. Risks include but are not limited to bleeding, contrast-induced nephropathy, coronary dissection, stroke, and even . The patient understands and is agreeable to undergo the procedure. We will plan for coronary angiogram on 03/14/2025. Thank you for allowing us to care for this patient. Please call with any questions or concerns. This medical document was created using an electronic medical record system with voice recognition software and computerized dictation system. Although this document has been carefully reviewed, there might still be some phonetic and typographical errors. Occasional wrong-word or ``sound-alike substitutions may have occurred due to the inherent limitations of voice recognition software. These areas are purely typographical due to imperfections of the software programs and do not reflect any compromise in the patient's medical care. Please read the chart carefully and recognize, using context, where these substitutions have occurred. Plan discussed with: Patient Date of Service: Mar 11, 2025 Billing Provider: SEYMOUR RACHEL Common Visit Codes: [id number] INP/OBS CARE(HIGH) SEYMOUR RACHEL Mar 11, 2025 11:09
[2025-03-11 13:00] VITALS: BP 134/89; PULSE 75; RESP 16; TEMP 98.6; O2SAT 98
[2025-03-11] MEDS: MORPHINE SULFATE INJ 2 MG/ml SYRG ONE (13:14)
[2025-03-11 16:30] VITALS: BP 154/98; PULSE 73; RESP 18; TEMP 97.7; O2SAT 95
--- NOTE | 2025-03-11 17:49 | DVHPN2 ---
Subjective Patient's chart is reviewed. Discussed with the nurse. Patient admitted overnight for chest pain and paroxysmal atrial fibrillation. Evaluated by chair post machine operator. At present comfortable without complaints. Changes from previous H/P or p: No Changes Eyes: No Pain, No Vision change, No Conjunctivae inflammation, No Eyelid inflammation, No Other, No Redness ENT: No Ear pain, No Ear discharge, No Nose pain, No Nose discharge, No Nose congestion, No Mouth pain, No Mouth swelling, No Throat pain, No Throat swelling, No Other Cardiovascular: Chest Pain, Palpitations; No Orthopnea, No Paroxysmal Noc. Dyspnea, No Edema; Lt Headedness; No Other Respiratory: No Cough, No Dry, No Shortness of breath, No SOB with excertion, No Wheezing, No Hemoptysis, No Pleuritic Pain, No Sputum, No Other Gastrointestinal: Nausea; No Vomiting, No Abdominal Pain, No Diarrhea; C onstipation; No Melena, No Hematochezia, No Other Genitourinary: No Dysuria, No Frequency, No Incontinence, No Hematuria, No Retention, No Other Musculoskeletal: No other, No neck pain, No shoulder pain, No arm pain, No back pain, No hand pain, No leg pain, No foot pain Skin: No Rash, No Lesions, No Jaundice, No Bruising, No Other Objective Vitals Vital Signs Date Time Temp Pulse Resp B/P (MAP) Pulse Ox O2 Delivery O2 Flow Rate FiO2 03/11/25 16:30 97.7 73 18 154/98 (116) 95 97.7 03/11/25 08:00 Room Air* 0 21 Intake/Output Intake and Output 03/11/25 07:00 Intake Total 0 ml Balance 0 ml Intake Oral 0 ml # Voids 3 Exam Comfortable in bed. Pain-free. HEENT neck supple no JVD. Heart regular rate rhythm S1-S2. Lungs fair air movement without rales wheezes. Abdomen soft nontender positive bowel sounds. Extremities no edema positive pulses. Medications Current Medications Medications Dose Ordered Sig/Merly Route Start Time Stop Time Status Last Admin Dose Admin Acetaminophen 325 mg Q4HP PRN PO 03/10/25 10:30 03/10/25 16:25 325 MG Acetaminophen/ Hydrocodone Bitart 1 tab Q4HP PRN PO 03/10/25 10:30 Ondansetron HCl 4 mg Q4HP PRN IV 03/10/25 10:30 Docusate Sodium 100 mg BIDPRN PRN PO 03/10/25 10:30 Morphine Sulfate 2 mg Q4HPRN PRN IV 03/10/25 10:30 03/11/25 13:17 2 MG Nitroglycerin 0.4 mg Q5MINP PRN SL 03/10/25 10:30 Morphine Sulfate 2 mg Q30M PRN IV 03/10/25 10:30 Sertraline HCl 100 mg DAILY PO 03/11/25 10:00 03/11/25 10:28 100 MG Ranolazine 500 mg BID PO 03/10/25 22:00 03/11/25 10:23 500 MG Clopidogrel Bisulfate 75 mg DAILY PO 03/10/25 11:00 03/11/25 10:23 75 MG Pantoprazole Sodium 40 mg DAILY IV 03/10/25 11:15 03/11/25 10:29 40 MG Hydralazine HCl 10 mg Q6HPRN PRN IV 03/10/25 11:15 Atorvastatin Calcium 40 mg HS PO 03/10/25 22:00 03/10/25 21:22 40 MG Enoxaparin Sodium 50 mg Q12HR SC 03/10/25 22:00 03/11/25 10:37 50 MG Flecainide Acetate 50 mg Q12HR PO 03/10/25 22:00 03/11/25 10:28 50 MG Digoxin 0.125 mg DAILY PO 03/11/25 10:00 03/11/25 10:26 0.125 MG Metoprolol Tartrate 12.5 mg BID PO 03/10/25 22:00 03/11/25 13:21 12.5 MG Laboratory Results Laboratory Tests 03/11/25 07:24 Chemistry Test 03/11/25 07:24 Albumin 4.5 g/dL (3.2-4.8) Calcium Level 9.5 mg/dL (8.7-10.4) Total Protein 7.4 g/dL (5.7-8.2) LFT Test 03/11/25 07:24 Alanine Aminotransferase (ALT) 19 U/L (7-40) Alkaline Phosphatase 86 U/L (46-116) Aspartate Amino Transferase (AST) 25 U/L (13-40) Total Bilirubin 0.5 mg/dL (0.2-1.0) Urinalysis Test 03/10/25 13:00 Urine Color Light-yellow (Yellow) Urine Clarity Clear (Clear) Urine pH 6.5 (5.0-9.0) Urine Specific [place] 1.013 (1.001-1.035) Urine Protein Negative (Negative) Urine Ketones Negative (Negative) Urine Blood Negative /uL (Negative) Urine Nitrite Negative (Negative) Urine Bilirubin Negative (Negative) Urine Urobilinogen Normal mg/dL (Negative) Urine Leukocyte Esterase Negative /uL (Negative) Urine RBC 2 /hpf (0 - 4) Urine Microscopic WBC /HPF (0-5) Urine Squamous Epithelial Cells None seen /hpf (<5) Urine Bacteria None seen /hpf (None Seen) Urine Glucose Normal mg/dL (Normal) Microbiology Microbiology Date/Time Source Procedure Growth Status 03/10/25 11:33 Blood Blood Culture - Preliminary NO GROWTH AFTER 24 HOURS OF INCUBATION. Resulted 03/10/25 11:19 Sputum Gram Stain - Final Resulted 03/10/25 11:19 Sputum Respiratory Culture - Preliminary Resulted Labs and/or images reviewed: Labs reviewed by me Assessment/Plan Assessment/Plan Continue current cardiac medications. Given no further interventions being done today tomorrow we will start him on cardiac diet. Patient is evaluated Cardiology and apparently recommending coronary angiogram on Wednesday. Meantime we will continue rest of home medications. Supportive care and treatment. Further clinical management per clinical course and recommendations from the consultants. Discussed with the nurse at bedside regarding care plan. Plan discussed with: Patient, Other My Orders Orders - RHODA SLAUGHTER MD Procedure Category Date Status Time Cardiac DIET 03/11/25 Transmitted Diet-2gna,Lofat,Lochol Dinner Problem List: (1) Atrial fibrillation (2) Ruled out for myocardial infarction (3) Generalized weakness (4) Pacemaker (5) Acute chest pain Date of Service: Mar 11, 2025 Billing Provider: RHODA SLAUGHTER MD Common Visit Codes: [id number] INP/OBS CARE(MOD) RHODA SLAUGHTER MD Mar 11, 2025 17:49
--- NOTE | 2025-03-11 18:36 | DVHSR ---
APPROVED REPORT EXAM: LIMITED Two-dimensional and M-mode echocardiogram with Doppler and color Doppler. INDICATION Chest Pain R/O structural heart disease Surgery/Intervention Pacemaker: RISK FACTORS Height: 5'5", Weight: 119 DIMENSIONS LVDd 4.3 (3.8-5.7cm) LA (2D) 4.3 (1.9-4.0cm) Aortic Root (2.0-3.7cm) LVDs 2.9 (2.5-4.0cm) LA (MM) (1.9-4.0cm) Aortic Cusp Exc (1.5-2.0cm) EF (%) 60.0 (55-70%) Rt. Atrium 3.9 (1.9-4.0cm) Asc. Aorta cm IVSd 1.1 (0.7-1.1cm) RV (D) (1.8-2.4cm) PWd 1.0 (0.7-1.1cm) Mitral Valve Mitral Mitral Stenosis E/A ratio 0.0 2D MVA cm2 Tricuspid Valve TR Velocity 2.57m/s RVSP 29mmHg Other Information Quality : Technically Limited Rhythm : Technically limited study due to body habitus. Limited repeat S/P pacemaker. Conclusion Technically limited study. Left atrial enlargement. Valves are normal. Left ventricular function is preserved at 50%. Mild inferolateral hypokinesis. Normal RV function. Dopplers unremarkable. Mild TR. RVSP of 30 mmHg. Small pericardial effusion not hemodynamically significant.
[2025-03-11 20:00] VITALS: PULSE 74; RESP 18; O2SAT 97
[2025-03-11 21:00] VITALS: BP 132/92; PULSE 76; RESP 20; TEMP 98.4; O2SAT 97
[2025-03-12] VITALS (8 sets, daily range): BP systolic 125–136; BP diastolic 81–87; PULSE 70–74; RESP 17–20; TEMP 98.2–98.6; O2SAT 94–98
[2025-03-12 07:22] LABS: Hematocrit 41.2 % (36.0-46.0); Hemoglobin 14.1 g/dL (12.2-16.2); Mean Corpuscular Hemoglobin 32.2 pg (28.0-32.0); Mean Corpuscular Volume 93.8 fL (80.0-100.0); Nucleated Red Blood Cells % 0.2 %
[2025-03-12 07:41] LABS: Anion Gap 9 (5-15); Carbon Dioxide 24 mmol/L (20-31); Potassium 3.9 mmol/L (3.5-5.1)
[2025-03-12 07:42] LABS: Calcium 9.1 mg/dL (8.7-10.4)
[2025-03-12 07:45] LABS: Chloride 113 mmol/L (98-107); Sodium 146 mmol/L (136-145)
[2025-03-12 07:47] LABS: BUN/Creatinine Ratio 22.2 (10.0-20.0); Blood Urea Nitrogen 22 mg/dL (9-23); Glucose 89 mg/dL (74-106)
--- NOTE | 2025-03-12 08:23 | ECG ---
[facility] Test Date: 2025-03-10 Test Time: 08:04:06 Pat Name: SEGUNDO PANDEY Department: ED Room: [facility]5T B Gender: F Smooth Stucco Resurfacer: xochilt : [id number] Requested By: GABRIELA BRANDON Order Number: [id number] Reading MD: Amish Kemp Measurements Intervals [place] Rate: 81 P: 88 [place]: 67 QRS: -73 QRSD: 94 T: -64 QT: 323 QTc: 375 Interpretive Statements A-V dual-paced complexes w/ some inhibition No further analysis attempted due to paced rhythm Electronically Signed On 03-14-2025 17:41:30 PST by Amish Kemp Please click the below link to view image of tracing.
--- NOTE | 2025-03-12 08:24 | ECG ---
[facility] Test Date: 2025-03-10 Test Time: 07:06:40 Pat Name: SEGUNDO PANDEY Department: ED Room: [facility]5T B Gender: F Actuarial Mathematician: KRISTA : 1960 Requested By: GABRIELA BRANDON Order Number: [id number] Reading MD: Amish Kemp Measurements Intervals [place] Rate: 93 P: 0 [place]: 0 QRS: -77 QRSD: 90 T: -1 QT: 356 QTc: 443 Interpretive Statements Ventricular-paced complexes No further rhythm analysis attempted due to paced rhythm Left anterior fascicular block Prolonged QT interval Electronically Signed On 03-14-2025 17:41:29 PST by Amish Kemp Please click the below link to view image of tracing.
--- NOTE | 2025-03-12 08:24 | ECG ---
[facility] Test Date: 2025-03-10 Test Time: 07:05:45 Pat Name: SEGUNDO PANDEY Department: ED Room: [facility]5T B Gender: F Injection Molding Supervisor: KRISTA : 1960 Requested By: GABRIELA BRANDON Order Number: [id number] Reading MD: Amish Kemp Measurements Intervals [place] Rate: 82 P: 0 [place]: 0 QRS: -79 QRSD: 90 T: -7 QT: 370 QTc: 432 Interpretive Statements Atrial-sensed ventricular-paced complexes No further rhythm analysis attempted due to paced rhythm Left anterior fascicular block Borderline T abnormalities, diffuse leads Electronically Signed On 03-14-2025 17:41:23 PST by Amish Kemp Please click the below link to view image of tracing.
--- NOTE | 2025-03-12 08:25 | ECG ---
[facility] Test Date: 2025-03-10 Test Time: 10:04:08 Pat Name: SEGUNDO PANDEY Department: ED Room: [facility]5T B Gender: F Wanigan Clerk: xochilt : 1960 Requested By: CHON MOMIN Order Number: [id number] Reading MD: Amish Kemp Measurements Intervals [place] Rate: 80 P: 0 [place]: 34 QRS: -82 QRSD: 136 T: 94 QT: 420 QTc: 485 Interpretive Statements A-V dual-paced rhythm with some inhibition No further analysis attempted due to paced rhythm Electronically Signed On 03-14-2025 17:41:43 PST by Amish Kemp Please click the below link to view image of tracing.
--- NOTE | 2025-03-12 13:04 | DVHPN2 ---
Consult Progress Note Date Seen: Mar 12, 2025 Subjective Review of Systems: CVS:Abnormal, RESPIRATORY:Normal, NEURO:Normal Other Systems: Reports experiencing an episode of chest pain with relief after morphine administration Objective vital signs Vital Sign Date Time Temp Pulse Resp B/P (MAP) Pulse Ox O2 Delivery O2 Flow Rate FiO2 03/12/25 10:50 73 03/12/25 10:00 128/81 03/12/25 09:00 98.2 17 97 98.2 03/12/25 08:00 Room Air* 0 21 Total Intake and Output 03/11/25 03/11/25 03/12/25 15:00 23:00 07:00 Intake Total 0 ml 600 ml Balance 0 ml 600 ml medications Current Medications Medications Dose Ordered Sig/Merly Route Start Time Stop Time Status Last Admin Dose Admin Acetaminophen 325 mg Q4HP PRN PO 03/10/25 10:30 03/10/25 16:25 325 MG Acetaminophen/ Hydrocodone Bitart 1 tab Q4HP PRN PO 03/10/25 10:30 Ondansetron HCl 4 mg Q4HP PRN IV 03/10/25 10:30 Docusate Sodium 100 mg BIDPRN PRN PO 03/10/25 10:30 Morphine Sulfate 2 mg Q4HPRN PRN IV 03/10/25 10:30 03/11/25 22:38 2 MG Nitroglycerin 0.4 mg Q5MINP PRN SL 03/10/25 10:30 Morphine Sulfate 2 mg Q30M PRN IV 03/10/25 10:30 Sertraline HCl 100 mg DAILY PO 03/11/25 10:00 03/12/25 10:48 100 MG Ranolazine 500 mg BID PO 03/10/25 22:00 03/12/25 10:00 500 MG Clopidogrel Bisulfate 75 mg DAILY PO 03/10/25 11:00 03/12/25 10:50 75 MG Pantoprazole Sodium 40 mg DAILY IV 03/10/25 11:15 03/12/25 10:51 40 MG Hydralazine HCl 10 mg Q6HPRN PRN IV 03/10/25 11:15 Atorvastatin Calcium 40 mg HS PO 03/10/25 22:00 03/11/25 22:33 40 MG Enoxaparin Sodium 50 mg Q12HR SC 03/10/25 22:00 03/12/25 10:48 50 MG Flecainide Acetate 50 mg Q12HR PO 03/10/25 22:00 03/12/25 10:48 50 MG Digoxin 0.125 mg DAILY PO 03/11/25 10:00 03/12/25 10:50 0.125 MG Metoprolol Tartrate 12.5 mg BID PO 03/10/25 22:00 03/12/25 10:00 12.5 MG Examination: LUNGS:Normal, CVS:Normal (V-paced rhythm with underlined a-fib, controlled rate), NEURO:Normal laboratory and microbiology Laboratory Tests 03/12/25 06:35 Test 03/12/25 06:35 Range/Units Serum Glucose 89 74-106 mg/dL Problem List/Assessment/Plan Problem List/Assessment/Plan Paroxysmal atrial fibrillation/atrial flutter with rapid ventricular response, now controlled rate (on Eliquis and Flecainide therapy) 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 Kemp) * Transthoracic echocardiogram revealed LVEF 50% with inferolateral hypokinesis * Inpatient therapeutic Lovenox, transition back to DOAC prior to discharge * [id number] VASc score: 3 points, HAS-BLED: 1 point * Rate control, beta-wagner and digoxin therapy * Arrhythmic, flecainide therapy * Chest pain protocol * HEART score: 4 points * ASH score: 2 points * Continue single antiplatelet therapy lipid-lowering agent * Pacemaker interrogation completed: normal functioning pacemaker with episodes of a-fib with RVR up to 140s bpm * Close Cardiac surveillance Given persistent episodes of chest pain with history of CAD, patient scheduled for a coronary angiogram with left heart catheterization with Dr. Kemp on 03/14/2025. We will continue to monitor closely. Further orders per clinical course. Thank you for allowing us to care for this patient. Please call with any questions or concerns. This medical document was created using an electronic medical record system with voice recognition software and computerized dictation system. Although this document has been carefully reviewed, there might still be some phonetic and typographical errors. Occasional wrong-word or ``sound-alike substitutions may have occurred due to the inherent limitations of voice recognition software. These areas are purely typographical due to imperfections of the software programs and do not reflect any compromise in the patient's medical care. Please read the chart carefully and recognize, using context, where these substitutions have occurred. Plan discussed with: Patient, Other Date of Service: Mar 12, 2025 Billing Provider: DIANNA CRAMER Cardiology Common Codes: [id number] HOSP CARE(High DIANNA CRAMER Mar 12, 2025 13:04
[2025-03-12] MEDS: DOXYCYCLINE 100MG/100ML 100 ML IV SCH (15:09)
--- NOTE | 2025-03-12 15:21 | DVHPN2 ---
Subjective Patient denies any symptoms at this time Reviewed: Care Plan, H&P, Labs, Medications, Previous Orders Changes from previous H/P or p: No Changes General: Per HPI Eyes: No Pain, No Vision change, No Conjunctivae inflammation, No Eyelid inflammation, No Other, No Redness ENT: No Ear pain, No Ear discharge, No Nose pain, No Nose discharge, No Nose congestion, No Mouth pain, No Mouth swelling, No Throat pain, No Throat swelling, No Other Cardiovascular: Chest Pain, Palpitations; No Orthopnea, No Paroxysmal Noc. Dyspnea, No Edema; Lt Headedness; No Other Respiratory: No Cough, No Dry, No Shortness of breath, No SOB with excertion, No Wheezing, No Hemoptysis, No Pleuritic Pain, No Sputum, No Other Gastrointestinal: Nausea; No Vomiting, No Abdominal Pain, No Diarrhea; C onstipation; No Melena, No Hematochezia, No Other Genitourinary: No Dysuria, No Frequency, No Incontinence, No Hematuria, No Retention, No Other Musculoskeletal: No other, No neck pain, No shoulder pain, No arm pain, No back pain, No hand pain, No leg pain, No foot pain Skin: No Rash, No Lesions, No Jaundice, No Bruising, No Other Objective Vitals Vital Signs Date Time Temp Pulse Resp B/P (MAP) Pulse Ox O2 Delivery O2 Flow Rate FiO2 03/12/25 10:50 73 03/12/25 10:00 128/81 03/12/25 09:00 98.2 17 97 98.2 03/12/25 08:00 Room Air* 0 21 Intake/Output Intake and Output 03/12/25 07:00 Intake Total 600 ml Balance 600 ml Intake Oral 600 ml General Appearance: Alert, Oriented X3, Cooperative, No acute distress HEENT: Atraumatic, PERRLA Cardiovascular: Normal S1, Normal S2 Abdomen: Normal bowel sounds, Soft, No tenderness, No hepatospenomegaly Musculoskeletal: Normal sensory function, Normal motor function Extremities: No clubbing, No cyanosis, No edema Neuro: Normal gait, Normal speech Skin: Dry, Intact Psych/Mental Status: Mental status NL, Mood NL Medications Current Medications Medications Dose Ordered Sig/Merly Route Start Time Stop Time Status Last Admin Dose Admin Acetaminophen 325 mg Q4HP PRN PO 03/10/25 10:30 03/10/25 16:25 325 MG Acetaminophen/ Hydrocodone Bitart 1 tab Q4HP PRN PO 03/10/25 10:30 Ondansetron HCl 4 mg Q4HP PRN IV 03/10/25 10:30 Docusate Sodium 100 mg BIDPRN PRN PO 03/10/25 10:30 Morphine Sulfate 2 mg Q4HPRN PRN IV 03/10/25 10:30 03/11/25 22:38 2 MG Nitroglycerin 0.4 mg Q5MINP PRN SL 03/10/25 10:30 Morphine Sulfate 2 mg Q30M PRN IV 03/10/25 10:30 Sertraline HCl 100 mg DAILY PO 03/11/25 10:00 03/12/25 10:48 100 MG Ranolazine 500 mg BID PO 03/10/25 22:00 03/12/25 10:00 500 MG Clopidogrel Bisulfate 75 mg DAILY PO 03/10/25 11:00 03/12/25 10:50 75 MG Pantoprazole Sodium 40 mg DAILY IV 03/10/25 11:15 03/12/25 10:51 40 MG Hydralazine HCl 10 mg Q6HPRN PRN IV 03/10/25 11:15 Atorvastatin Calcium 40 mg HS PO 03/10/25 22:00 03/11/25 22:33 40 MG Enoxaparin Sodium 50 mg Q12HR SC 03/10/25 22:00 03/12/25 10:48 50 MG Flecainide Acetate 50 mg Q12HR PO 03/10/25 22:00 03/12/25 10:48 50 MG Digoxin 0.125 mg DAILY PO 03/11/25 10:00 03/12/25 10:50 0.125 MG Metoprolol Succinate 25 mg DAILY PO 03/13/25 10:00 Doxycycline Hyclate 100 ml @ 50 mls/hr Q12H IV 03/12/25 14:45 Laboratory Results Laboratory Tests 03/12/25 06:35 Chemistry Test 03/12/25 06:35 Calcium Level 9.1 mg/dL (8.7-10.4) Urinalysis Test 03/10/25 13:00 Urine Color Light-yellow (Yellow) Urine Clarity Clear (Clear) Urine pH 6.5 (5.0-9.0) Urine Specific [place] 1.013 (1.001-1.035) Urine Protein Negative (Negative) Urine Ketones Negative (Negative) Urine Blood Negative /uL (Negative) Urine Nitrite Negative (Negative) Urine Bilirubin Negative (Negative) Urine Urobilinogen Normal mg/dL (Negative) Urine Leukocyte Esterase Negative /uL (Negative) Urine RBC 2 /hpf (0 - 4) Urine Microscopic WBC /HPF (0-5) Urine Squamous Epithelial Cells None seen /hpf (<5) Urine Bacteria None seen /hpf (None Seen) Urine Glucose Normal mg/dL (Normal) Microbiology Microbiology Date/Time Source Procedure Growth Status 03/11/25 15:32 Nose MRSA Screen - Final Complete 03/10/25 11:33 Blood Blood Culture - Preliminary NO GROWTH AFTER 48 HOURS OF INCUBATION. Resulted 03/10/25 11:19 Sputum Gram Stain - Final Complete 03/10/25 11:19 Respiratory Culture - Final Staphylococcus aureus Complete Labs and/or images reviewed: Labs reviewed by me, Image(s) reviewed by me Assessment/Plan Assessment/Plan Impression: -AFib with RVR -acute coronary syndrome -pneumonia with Staphylococcus aureus -cannabinoid use -anxiety disorder -sepsis Plan: -pacemaker interrogation -cardiology consultation: Plans for left heart catheterization in two days -continue full-dose anticoagulation with Lovenox, continue to hold Eliquis until after procedure -start doxycycline 100 mg IV b.i.d. -ACS protocol Total time spent with patient discussing and formulating plan of care: 35 minutes. This medical document was created using an electronic medical record system with [employer] dictation system. Although this document has been carefully reviewed, there may still be some phonetic and typographical errors. These areas are purely typographical due to imperfections of the software programs, and do not reflect any compromise in the patient's medical care. Plan discussed with: Patient, Other (RN) My Orders Orders - MARIA ELENA PHILLIPS NP Procedure Category Date Status Time Doxycycline PHA 03/12/25 In Process 100mg/100ml 14:45 Date of Service: Mar 12, 2025 Billing Provider: MARIA ELENA PHILLIPS NP Common Visit Codes: [id number] INP/OBS CARE(HIGH) MARIA ELENA PHILLIPS NP Mar 12, 2025 15:21
[2025-03-12] MEDS: DOCUSATE SOD 100 MG CAP PO PRN (16:03)
[2025-03-12] MEDS: ENOXAPARIN SOD 60 MG/0.6 ML SYRINGE SC SCH (21:31)
[2025-03-13] VITALS (8 sets, daily range): BP systolic 140–157; BP diastolic 85–96; PULSE 69–74; RESP 18–20; TEMP 96.8–98.4; O2SAT 95–98
[2025-03-13 07:41] LABS: Hematocrit 42.5 % (36.0-46.0); Hemoglobin 14.7 g/dL (12.2-16.2); Mean Corpuscular Hemoglobin 32.1 pg (28.0-32.0); Mean Corpuscular Volume 92.7 fL (80.0-100.0); Nucleated Red Blood Cells % 0.2 %
[2025-03-13 08:00] LABS: Anion Gap 8 (5-15); Carbon Dioxide 27 mmol/L (20-31); Potassium 3.7 mmol/L (3.5-5.1)
[2025-03-13 08:02] LABS: Calcium 9.5 mg/dL (8.7-10.4)
[2025-03-13 08:06] LABS: BUN/Creatinine Ratio 19.8 (10.0-20.0); Blood Urea Nitrogen 19 mg/dL (9-23); Chloride 112 mmol/L (98-107); Glucose 93 mg/dL (74-106); Sodium 147 mmol/L (136-145)
[2025-03-13] MEDS: METOPROLOL SUCCINATE XL 50 MG TAB PO SCH (10:48)
--- NOTE | 2025-03-13 12:18 | DVHPN2 ---
Consult Progress Note Date Seen: Mar 13, 2025 Subjective Review of Systems: CVS:Normal, RESPIRATORY:Normal, NEURO:Normal Objective vital signs Vital Sign Date Time Temp Pulse Resp B/P (MAP) Pulse Ox O2 Delivery O2 Flow Rate FiO2 03/13/25 11:05 72 03/13/25 11:05 97.7 03/13/25 10:48 140/95 03/13/25 09:00 20 98 03/13/25 08:00 Room Air* 0 21 Total Intake and Output 03/12/25 03/12/25 03/13/25 15:00 23:00 07:00 Intake Total 1000 ml 500 ml Balance 1000 ml 500 ml medications Current Medications Medications Dose Ordered Sig/Merly Route Start Time Stop Time Status Last Admin Dose Admin Acetaminophen 325 mg Q4HP PRN PO 03/10/25 10:30 03/13/25 11:05 325 MG Acetaminophen/ Hydrocodone Bitart 1 tab Q4HP PRN PO 03/10/25 10:30 Ondansetron HCl 4 mg Q4HP PRN IV 03/10/25 10:30 Docusate Sodium 100 mg BIDPRN PRN PO 03/10/25 10:30 03/12/25 16:03 100 MG Morphine Sulfate 2 mg Q4HPRN PRN IV 03/10/25 10:30 03/11/25 22:38 2 MG Nitroglycerin 0.4 mg Q5MINP PRN SL 03/10/25 10:30 Morphine Sulfate 2 mg Q30M PRN IV 03/10/25 10:30 Sertraline HCl 100 mg DAILY PO 03/11/25 10:00 03/13/25 10:48 100 MG Ranolazine 500 mg BID PO 03/10/25 22:00 03/13/25 10:47 500 MG Clopidogrel Bisulfate 75 mg DAILY PO 03/10/25 11:00 03/13/25 10:46 75 MG Pantoprazole Sodium 40 mg DAILY IV 03/10/25 11:15 03/13/25 10:49 40 MG Hydralazine HCl 10 mg Q6HPRN PRN IV 03/10/25 11:15 Atorvastatin Calcium 40 mg HS PO 03/10/25 22:00 03/12/25 21:30 40 MG Flecainide Acetate 50 mg Q12HR PO 03/10/25 22:00 03/13/25 10:48 50 MG Digoxin 0.125 mg DAILY PO 03/11/25 10:00 03/13/25 11:05 0.125 MG Metoprolol Succinate 25 mg DAILY PO 03/13/25 10:00 03/13/25 10:48 25 MG Doxycycline Hyclate 100 ml @ 50 mls/hr Q12H IV 03/12/25 14:45 03/13/25 02:40 50 MLS/HR Enoxaparin Sodium 50 mg Q12HR SC 03/12/25 22:00 03/13/25 10:49 50 MG Melatonin 5 mg HS PO 03/12/25 22:00 Examination: LUNGS:Normal, CVS:Normal (A-fib controlled rate with intermittent paced rhythm), CVS:Abnormal, NEURO:Normal laboratory and microbiology Laboratory Tests 03/13/25 07:12 Test 03/13/25 07:12 Range/Units Serum Glucose 93 74-106 mg/dL Problem List/Assessment/Plan Problem List/Assessment/Plan Paroxysmal atrial fibrillation/atrial flutter with rapid ventricular response, now controlled rate (on Eliquis and Flecainide therapy) 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) Coronary artery disease with 100% occluded RCA not amenable to catheter based intervention (on Plavix therapy) History of supraventricular tachycardia Persistent left superior vena cava (PLSVC) Hypertension Dyslipidemia History of tobacco use Anxiety Plan/Recommendations (Dr. Kemp) * Transthoracic echocardiogram revealed LVEF 50% with inferolateral hypokinesis * Inpatient therapeutic Lovenox, transition back to DOAC prior to discharge * [id number] VASc score: 3 points, HAS-BLED: 1 point * Rate control, beta-wagner and digoxin therapy * Arrhythmic, flecainide therapy * Chest pain protocol * HEART score: 4 points * ASH score: 2 points * Continue single antiplatelet therapy lipid-lowering agent * Pacemaker interrogation completed: normal functioning pacemaker with episodes of a-fib with RVR up to 140s bpm * Close Cardiac surveillance Given persistent episodes of chest pain with history of CAD, patient scheduled for a coronary angiogram with left heart catheterization with Dr. Kemp on 03/14/2025. We will continue to monitor closely. Further orders per clinical course. Thank you for allowing us to care for this patient. Please call with any questions or concerns. This medical document was created using an electronic medical record system with voice recognition software and computerized dictation system. Although this document has been carefully reviewed, there might still be some phonetic and typographical errors. Occasional wrong-word or ``sound-alike substitutions may have occurred due to the inherent limitations of voice recognition software. These areas are purely typographical due to imperfections of the software programs and do not reflect any compromise in the patient's medical care. Please read the chart carefully and recognize, using context, where these substitutions have occurred. Plan discussed with: Patient, Other Date of Service: Mar 13, 2025 Billing Provider: DIANNA CRAMER Cardiology Common Codes: [id number] [facility](High DIANNA CRAMER Mar 13, 2025 12:18
--- NOTE | 2025-03-13 14:59 | DVHPN2 ---
Subjective Patient denies any symptoms at this time Reviewed: Care Plan, H&P, Labs, Medications, Previous Orders Changes from previous H/P or p: No Changes General: Per HPI Eyes: No Pain, No Vision change, No Conjunctivae inflammation, No Eyelid inflammation, No Other, No Redness ENT: No Ear pain, No Ear discharge, No Nose pain, No Nose discharge, No Nose congestion, No Mouth pain, No Mouth swelling, No Throat pain, No Throat swelling, No Other Cardiovascular: Chest Pain, Palpitations; No Orthopnea, No Paroxysmal Noc. Dyspnea, No Edema; Lt Headedness; No Other Respiratory: No Cough, No Dry, No Shortness of breath, No SOB with excertion, No Wheezing, No Hemoptysis, No Pleuritic Pain, No Sputum, No Other Gastrointestinal: Nausea; No Vomiting, No Abdominal Pain, No Diarrhea; C onstipation; No Melena, No Hematochezia, No Other Genitourinary: No Dysuria, No Frequency, No Incontinence, No Hematuria, No Retention, No Other Musculoskeletal: No other, No neck pain, No shoulder pain, No arm pain, No back pain, No hand pain, No leg pain, No foot pain Skin: No Rash, No Lesions, No Jaundice, No Bruising, No Other Objective Vitals Vital Signs Date Time Temp Pulse Resp B/P (MAP) Pulse Ox O2 Delivery O2 Flow Rate FiO2 03/13/25 13:00 98.1 71 18 144/85 (104) 97 98.1 03/13/25 08:00 Room Air* 0 21 Intake/Output Intake and Output 03/13/25 07:00 Intake Total 1500 ml Balance 1500 ml Intake Oral 1400 ml IV Total 100 ml # Voids 2 General Appearance: Alert, Oriented X3, Cooperative, No acute distress HEENT: Atraumatic, PERRLA Cardiovascular: Normal S1, Normal S2 Abdomen: Normal bowel sounds, Soft, No tenderness, No hepatospenomegaly Musculoskeletal: Normal sensory function, Normal motor function Extremities: No clubbing, No cyanosis, No edema Neuro: Normal gait, Normal speech Skin: Dry, Intact Psych/Mental Status: Mental status NL, Mood NL Medications Current Medications Medications Dose Ordered Sig/Merly Route Start Time Stop Time Status Last Admin Dose Admin Acetaminophen 325 mg Q4HP PRN PO 03/10/25 10:30 03/13/25 11:05 325 MG Acetaminophen/ Hydrocodone Bitart 1 tab Q4HP PRN PO 03/10/25 10:30 Ondansetron HCl 4 mg Q4HP PRN IV 03/10/25 10:30 Docusate Sodium 100 mg BIDPRN PRN PO 03/10/25 10:30 03/12/25 16:03 100 MG Morphine Sulfate 2 mg Q4HPRN PRN IV 03/10/25 10:30 03/11/25 22:38 2 MG Nitroglycerin 0.4 mg Q5MINP PRN SL 03/10/25 10:30 Morphine Sulfate 2 mg Q30M PRN IV 03/10/25 10:30 Sertraline HCl 100 mg DAILY PO 03/11/25 10:00 03/13/25 10:48 100 MG Ranolazine 500 mg BID PO 03/10/25 22:00 03/13/25 10:47 500 MG Clopidogrel Bisulfate 75 mg DAILY PO 03/10/25 11:00 03/13/25 10:46 75 MG Pantoprazole Sodium 40 mg DAILY IV 03/10/25 11:15 03/13/25 10:49 40 MG Hydralazine HCl 10 mg Q6HPRN PRN IV 03/10/25 11:15 Atorvastatin Calcium 40 mg HS PO 03/10/25 22:00 03/12/25 21:30 40 MG Flecainide Acetate 50 mg Q12HR PO 03/10/25 22:00 03/13/25 10:48 50 MG Digoxin 0.125 mg DAILY PO 03/11/25 10:00 03/13/25 11:05 0.125 MG Metoprolol Succinate 25 mg DAILY PO 03/13/25 10:00 03/13/25 10:48 25 MG Doxycycline Hyclate 100 ml @ 50 mls/hr Q12H IV 03/12/25 14:45 03/13/25 14:49 50 MLS/HR Enoxaparin Sodium 50 mg Q12HR SC 03/12/25 22:00 03/13/25 10:49 50 MG Melatonin 5 mg HS PO 03/12/25 22:00 Laboratory Results Laboratory Tests 03/13/25 07:12 Chemistry Test 03/13/25 07:12 Calcium Level 9.5 mg/dL (8.7-10.4) Urinalysis Test 03/10/25 13:00 Urine Color Light-yellow (Yellow) Urine Clarity Clear (Clear) Urine pH 6.5 (5.0-9.0) Urine Specific [place] 1.013 (1.001-1.035) Urine Protein Negative (Negative) Urine Ketones Negative (Negative) Urine Blood Negative /uL (Negative) Urine Nitrite Negative (Negative) Urine Bilirubin Negative (Negative) Urine Urobilinogen Normal mg/dL (Negative) Urine Leukocyte Esterase Negative /uL (Negative) Urine RBC 2 /hpf (0 - 4) Urine Microscopic WBC /HPF (0-5) Urine Squamous Epithelial Cells None seen /hpf (<5) Urine Bacteria None seen /hpf (None Seen) Urine Glucose Normal mg/dL (Normal) Microbiology Microbiology Date/Time Source Procedure Growth Status 03/11/25 15:32 Nose MRSA Screen - Final Complete 03/10/25 11:33 Blood Blood Culture - Preliminary NO GROWTH AFTER 72 HOURS OF INCUBATION. Resulted 03/10/25 11:19 Sputum Gram Stain - Final Complete 03/10/25 11:19 Respiratory Culture - Final Staphylococcus aureus Complete Labs and/or images reviewed: Labs reviewed by me, Image(s) reviewed by me Assessment/Plan Assessment/Plan Impression: -AFib with RVR -acute coronary syndrome -pneumonia with Staphylococcus aureus -cannabinoid use -anxiety disorder -sepsis Plan: Events: No events overnight. -cardiology consultation: Left heart catheterization tomorrow -continue full-dose anticoagulation with Lovenox, continue to hold Eliquis until after procedure -doxycycline 100 mg IV b.i.d. -ACS protocol Total time spent with patient discussing and formulating plan of care: 35 minutes. This medical document was created using an electronic medical record system with [email or web address] dictation system. Although this document has been carefully reviewed, there may still be some phonetic and typographical errors. These areas are purely typographical due to imperfections of the software programs, and do not reflect any compromise in the patient's medical care. Plan discussed with: Patient, Other (RN) Date of Service: Mar 13, 2025 Billing Provider: MARIA ELENA PHILLIPS NP Common Visit Codes: [id number] INP/OBS CARE(HIGH) MARIA ELENA PHILLIPS NP Mar 13, 2025 14:59
[2025-03-13] MEDS: MELATONIN 5 MG TAB PO SCH (22:12)
[2025-03-14] VITALS (12 sets, daily range): BP systolic 120–155; BP diastolic 79–104; PULSE 69–74; RESP 12–21; TEMP 97.8–98.3; O2SAT 95–99
[2025-03-14 07:17] LABS: INR 1.03 (0.9-1.15); Partial Thromboplastin Time 27.6 SEC (24.5-34.5); Prothrombin Time 10.9 sec (9.3-11.8)
[2025-03-14 07:22] LABS: Calcium 9.2 mg/dL (8.7-10.4); Potassium 4.0 mmol/L (3.5-5.1)
[2025-03-14 07:23] LABS: Anion Gap 9 (5-15); Carbon Dioxide 25 mmol/L (20-31); Chloride 111 mmol/L (98-107); Sodium 145 mmol/L (136-145)
[2025-03-14 07:28] LABS: BUN/Creatinine Ratio 23.8 (10.0-20.0); Glucose 100 mg/dL (74-106)
[2025-03-14 07:29] LABS: Blood Urea Nitrogen 24 mg/dL (9-23)
[2025-03-14 11:17] LABS: Hematocrit 40.5 % (36.0-46.0); Hemoglobin 13.4 g/dL (12.2-16.2); Mean Corpuscular Hemoglobin 31.5 pg (28.0-32.0); Mean Corpuscular Volume 95.5 fL (80.0-100.0); Nucleated Red Blood Cells % 0.1 %
[2025-03-14] MEDS: HEPARIN SODIUM (PORCINE) 5000 UNITS/ML 1ML VIAL ONE (12:08)
[2025-03-14] MEDS: VERAPAMIL 2.5MG/ML INJ 2ML VIAL IV ONE (12:08)
[2025-03-14] MEDS: LIDOCAINE 2%HCL (LOCAL ANESTH.) INJ 20ML MDV ONE (12:09)
[2025-03-14] MEDS: fentaNYL CITRATE 100 MCG/2 ML VL ONE (12:09)
[2025-03-14] MEDS: MIDAZOLAM HCL 2MG/2ML 2ml VIAL (1mg/ml) ONE (12:09)
--- NOTE | 2025-03-14 13:35 | DVHOP2 ---
Operative Report - 2 Report Details Date: 03/14/25 Preop Diagnosis: CORONARY ARTERY DISEASE Postop Diagnosis: SINGLE-VESSEL CORONARY DISEASE Surgeon: Sebastian Salas MD Anesthesiologist: MODERATE SEDATION Anesthesia: Local Consent: The patient was informed of the risks and benefits of the procedure. These include but are not limited to complications of anesthesia, postoperative infection, incomplete relief of symptoms, recurrence of symptoms, damage to blood vessels, nerves and tendons, deep venous thrombosis, pulmonary embolism and possible need for repeat surgery in the future. Complications: NONE APPARENT Estimated Blood Loss: 10 CC Findings: HEMODYNAMICS AORTIC OPENING PRESSURE: DOMINANCE: RIGHT Left main coronary artery (LM): Gives rise to lad and left circumflex coronaries. There was no significant stenosis. There is ASH 3 flow Left anterior descending coronary artery (LAD) : Small to medium-sized vessel with no significant stenosis in the body of the LAD. Gives rise to small-sized diagonals with no significant stenosis. There is ASH 3 flow Left circumflex coronary artery (LCX): There was no significant stenosis. The device to smaller obtuse marginal branches. There is ASH 3 flow Right coronary artery: Known to be chronically totally occluded (GLASS ARTIST). No changes from before. 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 Informed consent was obtained. Patient was prepped and draped in sterile fashion. 1% lidocaine was injected into the right radial artery. Right radial artery was accessed and a six [place]er radial sheath was placed. Next six [place] JR4 diagnostic catheter was used to engage the [facility] coronary system. Standard angiographic images were obtained. Next the catheter was exchanged over a 035 wire with a six [place] JL 3.5 diagnostic catheter that was used to engage left coronary system. Standard angiographic views of the left coronary system was obtained. Arterial sheath was flushed with normal saline between catheter exchanges. Left ventricular was accessed using diagnostic catheter and pressure measurements obtained. Condition Good Disposition Still a Patient Date of Service: Mar 14, 2025 Billing Provider: SEBASTIAN SALAS MD Cardiology Common Codes: 92411-MVDPVWT INP/OBS CARE (High) Cardiology Procedure Codes: 35821-ZANI HEART CATH W/INTRA INJ MOGADAM,EMAD MD Mar 14, 2025 13:35
[2025-03-14] MEDS ORDERED: DOXY100C79 PO (14:38)
--- NOTE | 2025-03-14 14:43 | DVHDS2 ---
Discharge Summary Date of Admission Mar 10, 2025 at 10:20 Date of Discharge: Mar 14, 2025 Admitting Diagnosis Rule out ACS Labs/Diagnostic Data: Laboratory Results Test 03/14/25 05:58 03/11/25 07:24 03/10/25 13:01 03/10/25 13:00 White Blood Count 6.9 10^3/uL (4.4-10.8) Red Blood Count 4.24 10^6/uL (4.0-5.20) Hemoglobin 13.4 g/dL (12.2-16.2) Hematocrit 40.5 % (36.0-46.0) Mean Corpuscular Volume 95.5 fL (80.0-100.0) Mean Corpuscular Hemoglobin 31.5 pg (28.0-32.0) Mean Corpuscular Hemoglobin Concent 33.0 g/dL (32.0-36.0) Red Cell Distribution Width 13.5 % (11.8-14.3) Platelet Count 244 10^3/uL (140-450) Mean Platelet Volume 8.7 fL (6.9-10.8) Neutrophils (%) (Auto) 71.2 % (37.0-80.0) Lymphocytes (%) (Auto) 19.5 % (10.0-50.0) Monocytes (%) (Auto) 5.6 % (0.0-12.0) Eosinophils (%) (Auto) 2.9 % (0.0-7.0) Basophils (%) (Auto) 0.8 % (0.0-2.0) Neutrophils # (Auto) 4.9 10 ^3/uL (1.6-8.6) Lymphocytes # (Auto) 1.3 10 ^3/uL (0.4-5.4) Monocytes # (Auto) 0.4 10 ^3/uL (0-1.3) Eosinophils # (Auto) 0.2 10 ^3/uL (0-0.8) Basophils # (Auto) 0.1 10 ^3/uL (0-0.2) Nucleated Red Blood Cells 0.1 % Prothrombin Time 10.9 sec (9.3-11.8) Prothrombin Time INR 1.03 (0.9-1.15) Activated Partial Thromboplast Time 27.6 SEC (24.5-34.5) Sodium Level 145 mmol/L (136-145) Potassium Level 4.0 mmol/L (3.5-5.1) Chloride Level 111 mmol/L (98-107) Carbon Dioxide Level 25 mmol/L (20-31) Anion Gap 9 (5-15) Blood Urea Nitrogen 24 mg/dL (9-23) Creatinine 1.01 mg/dL (0.550-1.02) Glomerular Filtration Rate Calc 62 mL/min (>90) BUN/Creatinine Ratio 23.8 (10.0-20.0) Serum Glucose 100 mg/dL (74-106) Calcium Level 9.2 mg/dL (8.7-10.4) Total Bilirubin 0.5 mg/dL (0.2-1.0) Aspartate Amino Transferase (AST) 25 U/L (13-40) Alanine Aminotransferase (ALT) 19 U/L (7-40) Alkaline Phosphatase 86 U/L (46-116) Total Protein 7.4 g/dL (5.7-8.2) Albumin 4.5 g/dL (3.2-4.8) Urine Opiates Screen Neg (NEGATIVE) Urine Fentanyl Screen Neg (NEGATIVE) Urine Barbiturates Screen Neg (NEGATIVE) Urine Phencyclidine Screen Neg (NEGATIVE) Urine Amphetamines Screen Neg (NEGATIVE) Urine Benzodiazepines Screen Neg (NEGATIVE) Urine Cocaine Screen Neg (NEGATIVE) Urine Cannabinoids Screen Pos (NEGATIVE) Urine Color Light-yellow (Yellow) Urine Clarity Clear (Clear) Urine pH 6.5 (5.0-9.0) Urine Specific George 1.013 (1.001-1.035) Urine Protein Negative (Negative) Urine Ketones Negative (Negative) Urine Blood Negative /uL (Negative) Urine Nitrite Negative (Negative) Urine Bilirubin Negative (Negative) Urine Urobilinogen Normal mg/dL (Negative) Urine Leukocyte Esterase Negative /uL (Negative) Urine RBC 2 /hpf (0 - 4) Urine Microscopic WBC /HPF (0-5) Urine Squamous Epithelial Cells None seen /hpf (<5) Urine Bacteria None seen /hpf (None Seen) Urine Glucose Normal mg/dL (Normal) Test 03/10/25 11:29 03/10/25 11:19 03/10/25 07:28 Troponin I High Sensitivity 69 ng/L (</=34) Digoxin Level 0.69 ng/mL (0.8-2) Influenza Type A Antigen Negative (Negative) Influenza Type B Antigen Negative (Negative) SARS-CoV-2 Antigen (Rapid) Negative (NEGATIVE) D-Dimer, Quantitative 0.78 mg/L FEU (0.0-0.49) Hemoglobin A1c 5.1 % A1C (<5.7) Magnesium Level 2.1 mg/dL (1.6-2.6) Direct Bilirubin 0.1 mg/dL (<0.3) B-Type Natriuretic Peptide 157.46 pg/mL (0-100) Lipase 37 U/L (12-53) Thyroid Stimulating Hormone (TSH) 1.37 uIU/mL (0.55-4.78) Other Laboratory Tests 03/14/25 05:58 Brief Hx & Hospital Course: History of Present Illness Ms. Rivas Holcomb, a 64-year-old female with a limited known medical history of hypertension, dyslipidemia,CAD with resistant angina on Ranolazine ER, paroxysmal A fib with RVR, generalized anxiety disorder, on [employer] dual chamber pacemaker presents to the ED via EMS for substernal chest pressure and nausea that began around midnight while at rest and with light exertion. The patient felt spontaneous discharges from the pacemaker. Severity is moderate, duration several hours, and symptoms are non-radiating. Differential includes angina, anxiety/panic attack, chest wall pain, gastritis, and uncontrolled hypertension. On arrival, vital signs were stable with BP 144/99. Course of hospitalization: Cardiology consultation was obtained. Patient was started on full-dose anticoagulation. Patient had left heart catheterization today which revealed chronic TISSUE REWINDER of RCA. This was also noted on previous angiogram. Patient's troponins has been negative. Tachyarrhythmias have improved. Patient did have positive Staphylococcus aureus, susceptible strain in sputum. She was started on doxycycline 100 mg twice a day. Patient will be discharged home as instructed to follow up with the discharge Clinic in her PCP within 1-2 weeks. She will be continued on doxycycline for an additional five days in his instructed to continue all previous home medications. Instructed to stop smoking marijuana. Patient states that she will continue smoking marijuana, at which point I told the patient to get a new device for smoking marijuana given the etiology for her pneumonia. Physical examination General: Alert and Oriented x3. No acute distress. Well-nourished. Eyes: EOMI. Anicteric. HENT: Moist mucous membranes. Lungs: Clear to auscultation bilaterally. No accessory muscle use. Cardiovascular: Regular rate and rhythm. No murmur. No JVD. Abdomen: Soft, non-tender and non-distended. No palpable masses. Extremities: No edema. Non-tender. Skin: No rashes or lesions. Warm. Neurologic: No focal neurological deficits. CN II-XII grossly intact, but not individually tested. Psychiatric: Cooperative. Appropriate mood and affect. Total time spent with patient discussing and formulating plan of care: 35 minutes. This medical document was created using an electronic medical record system with [employer] dictation system. Although this document has been carefully reviewed, there may still be some phonetic and typographical errors. These areas are purely typographical due to imperfections of the software programs, and do not reflect any compromise in the patient's medical care. Consults/Reason for consult Cardiology: Rule out ACS Operations or Procedures Left heart catheterization on 03/14/2025. No intervention Condition at Discharge: Good Final Diagnosis/Problems List SINGLE-VESSEL CORONARY DISEASE Pneumonia with Staphylococcus aureus -AFib with RVR -acute coronary syndrome -pneumonia with Staphylococcus aureus -cannabinoid use -anxiety disorder -sepsis Discharge Disposition: Home Discharge Instruct/Medications Diet: Cardiac 2g Na,low cholest Activity: No Restrictions, As Tolerated Follow Up/Referral: Follow up with PCP in 1-2 weeks Discharge Clinic in one week Medications: Doxycycline 100 mg p.o. b.i.d. x5 days Continue home medications Scheduled Amlodipine Besylate (Norvasc Tablet), 1 TAB PO DAILY Apixaban Base (Eliquis), 5 MG PO BID Aspirin (Aspir-81), 1 TAB PO DAILY Atorvastatin Calcium (Lipitor), 1 TAB PO DAILY Clopidogrel Bisulfate (Plavix), 75 MG PO DAILY Clopidogrel Bisulfate (Plavix), 1 TAB PO DAILY Digoxin (Digoxin), 125 MCG PO DAILY Docusate Sodium (Colace), 1 CAP PO BID Doxycycline (Monohydrate) (Doxycycline), 100 MG PO BID Flecainide Acetate (Flecainide Acetate), 50 MG PO BID, (Reported) Fluticasone Propionate (Nasal) (Allergy Nasal [place] 24 Ho), 50 MCG NA DAILY, (Reported) Losartan Potassium (Losartan Potassium), 25 MG PO DAILY, (Reported) Metoprolol Succinate (Toprol Xl), 1 TAB PO DAILY Ranolazine (Ranexa), 500 MG PO BID Sertraline Hcl (Zoloft), 1 TAB PO DAILY Scheduled PRN Acetaminophen (Acetaminophen), 500 MG PO Q6HP PRN for MILD PAIN (1-3 PAIN SCALE), (Reported) Fluticasone Propionate (Fluticasone Propionate), 0 VERA DAILYPRN PRN for NASAL CONGESTION, (Reported) 36 Discharge Statement: "Patient was advised to return to the ER or call 911 if any headaches, dizziness, shortness of breath, chest pain, abdominal pain, bleeding, fevers, or worsening of medical condition. Patient was counseled about treatment plan, medications, possible side effects, patientverbalized understanding. All questions were answered to the best of my ability. This discharge took greater then 30 minutes in planning, reviewing documentation, counseling the patient, and discussing with other team members." ASSESSMENT ASSESSMENT Assessment SINGLE-VESSEL CORONARY DISEASE Pneumonia with Staphylococcus aureus Date of Service: Mar 14, 2025 Billing Provider: MARIA ELENA PHILLIPS NP Common Visit Codes: 95598-PMD/OBS DISCH DAY >30min MARIA ELENA PHILLIPS NP Mar 14, 2025 14:43
--- NOTE | 2025-03-14 16:50 | DVHPN2 ---
Consult Progress Note Date Seen: Mar 14, 2025 Subjective Review of Systems: CVS:Normal, RESPIRATORY:Normal, NEURO:Normal Objective vital signs Vital Sign Date Time Temp Pulse Resp B/P (MAP) Pulse Ox O2 Delivery O2 Flow Rate FiO2 03/14/25 10:17 70 124/79 03/14/25 09:00 98.0 17 99 98.0 03/14/25 08:00 Room Air* 0 21 Total Intake and Output 03/13/25 03/13/25 03/14/25 15:00 23:00 07:00 Intake Total 1300 ml 500 ml Balance 1300 ml 500 ml medications Current Medications Medications Dose Ordered Sig/Merly Route Start Time Stop Time Status Last Admin Dose Admin Acetaminophen 325 mg Q4HP PRN PO 03/10/25 10:30 03/13/25 22:13 325 MG Acetaminophen/ Hydrocodone Bitart 1 tab Q4HP PRN PO 03/10/25 10:30 Ondansetron HCl 4 mg Q4HP PRN IV 03/10/25 10:30 Docusate Sodium 100 mg BIDPRN PRN PO 03/10/25 10:30 03/12/25 16:03 100 MG Morphine Sulfate 2 mg Q4HPRN PRN IV 03/10/25 10:30 03/11/25 22:38 2 MG Nitroglycerin 0.4 mg Q5MINP PRN SL 03/10/25 10:30 Morphine Sulfate 2 mg Q30M PRN IV 03/10/25 10:30 Sertraline HCl 100 mg DAILY PO 03/11/25 10:00 03/14/25 10:17 100 MG Ranolazine 500 mg BID PO 03/10/25 22:00 03/14/25 10:16 500 MG Clopidogrel Bisulfate 75 mg DAILY PO 03/10/25 11:00 03/14/25 10:16 75 MG Pantoprazole Sodium 40 mg DAILY IV 03/10/25 11:15 03/14/25 10:15 40 MG Hydralazine HCl 10 mg Q6HPRN PRN IV 03/10/25 11:15 Atorvastatin Calcium 40 mg HS PO 03/10/25 22:00 03/13/25 22:13 40 MG Flecainide Acetate 50 mg Q12HR PO 03/10/25 22:00 03/14/25 10:16 50 MG Digoxin 0.125 mg DAILY PO 03/11/25 10:00 03/14/25 10:16 0.125 MG Metoprolol Succinate 25 mg DAILY PO 03/13/25 10:00 03/14/25 10:17 25 MG Doxycycline Hyclate 100 ml @ 50 mls/hr Q12H IV 03/12/25 14:45 03/14/25 02:23 50 MLS/HR Enoxaparin Sodium 50 mg Q12HR SC 03/12/25 22:00 03/13/25 22:15 50 MG Melatonin 5 mg HS PO 03/12/25 22:00 03/13/25 22:23 5 MG Examination: LUNGS:Normal, CVS:Normal (A-fib controlled rate), NEURO:Normal laboratory and microbiology Laboratory Tests 03/14/25 05:58 Test 03/14/25 05:58 Range/Units Serum Glucose 100 74-106 mg/dL Problem List/Assessment/Plan Problem List/Assessment/Plan Paroxysmal atrial fibrillation/atrial flutter with rapid ventricular response, now controlled rate (on Eliquis and Flecainide therapy) 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 Kemp) * Transthoracic echocardiogram revealed LVEF 50% with inferolateral hypokinesis * Transition back to DOAC with Eliquis therapy * [id number] VASc score: 3 points, HAS-BLED: 1 point * Rate control, beta-wagner and digoxin therapy * Arrhythmic, flecainide therapy * Continue single-antiplatelet therapy and lipid-lowering agent * Pacemaker interrogation completed: normal functioning pacemaker with episodes of a-fib with RVR up to 140s bpm There is no further cardiac work-up indicated at this time. Kindly call with any questions or concerns. Thank you for allowing us to care for this patient. This medical document was created using an electronic medical record system with voice recognition software and computerized dictation system. Although this document has been carefully reviewed, there might still be some phonetic and typographical errors. Occasional wrong-word or ``sound-alike substitutions may have occurred due to the inherent limitations of voice recognition software. These areas are purely typographical due to imperfections of the software programs and do not reflect any compromise in the patient's medical care. Please read the chart carefully and recognize, using context, where these substitutions have occurred. Plan discussed with: Patient, Other Date of Service: Mar 14, 2025 Billing Provider: DIANNA CRAMER Cardiology Common Codes: 98624-[id number] INP/OBS CARE(Mod) DIANNA CRAMER Mar 14, 2025 16:50
[2025-03-15 01:00] VITALS: BP 133/82; PULSE 70; RESP 18; TEMP 97.8; O2SAT 98
[2025-03-15 05:00] VITALS: BP 153/93; PULSE 71; RESP 18; TEMP 97.9; O2SAT 97
[2025-03-15 07:02] LABS: Alanine Aminotransferase 31 U/L (7-40); Albumin 4.0 g/dL (3.2-4.8); Alkaline Phosphatase 73 U/L (46-116); Anion Gap 10 (5-15); BUN/Creatinine Ratio 24.8 (10.0-20.0); Bilirubin, Total 0.4 mg/dL (0.2-1.0); Calcium 9.5 mg/dL (8.7-10.4); Carbon Dioxide 27 mmol/L (20-31); Glucose 88 mg/dL (74-106); Potassium 4.3 mmol/L (3.5-5.1); Total Protein 6.3 g/dL (5.7-8.2)
[2025-03-15 07:03] LABS: Blood Urea Nitrogen 25 mg/dL (9-23); Chloride 111 mmol/L (98-107); Sodium 148 mmol/L (136-145)
[2025-03-15 08:00] VITALS: PULSE 71; PULSE 90
[2025-03-15 08:13] VITALS: BP 124/79; PULSE 70; TEMP 36.6
[2025-03-15 08:37] VITALS: BP 135/94; PULSE 76; RESP 16; TEMP 98.7; O2SAT 99
== END 2025-03-15 12:00 | disposition home or self-care (01) | DRG 720 ==
LOC: ER 06:59 → EDBD 06:59 → OVERFLOW 10:20 → EDUNIT# 10:20 → TELE-WESTW 03-11 16:18
PROVIDERS: ADMIT Nurse Practitioner Acute Care; ATTEND Nurse Practitioner Acute Care
PROC: 4A023N7 Measurement of Cardiac Sampling and Pressure, Left Heart, Percutaneous Approach (ICD-10-PCS; principal; 2025-03-14)
PROC: B211YZZ Fluoroscopy of Multiple Coronary Arteries using Other Contrast (ICD-10-PCS; 2025-03-14)
DX: A41.9 Sepsis, unspecified organism (principal); J15.211 Pneumonia due to Methicillin susceptible Staphylococcus aureus; I24.9 Acute ischemic heart disease, unspecified; I48.92 Unspecified atrial flutter; Z79.01 Long term (current) use of anticoagulants; I10 Essential (primary) hypertension; Q26.1 Persistent left superior vena cava; E78.5 Hyperlipidemia, unspecified; I48.0 Paroxysmal atrial fibrillation; F41.1 Generalized anxiety disorder; I25.10 Atherosclerotic heart disease of native coronary artery without angina pectoris; Z95.0 Presence of cardiac pacemaker; Z83.3 Family history of diabetes mellitus; Z82.0 Family history of epilepsy and other diseases of the nervous system; Z82.49 Family history of ischemic heart disease and other diseases of the circulatory system; Z88.6 Allergy status to analgesic agent; Z79.82 Long term (current) use of aspirin
CPT/HCPCS: 36415; 71045; 80048; 80053; 80076; 80162; 80307; 81001; 83036; 83690; 83735; 83880; 84443; 84484; 85025; 85379; 85610; 85730; 87040; 87070; 87077; 87081; 87186; 87205; 87426; 87804; 93005; 93306; 93458; 93970; 96360; 99291; G0378; J2250; J2470